=== PATIENT | male | born 1945 | race Caucasian/White ===

== ENCOUNTER → 2017-12-26 15:41 | Outpatient (CLI) | payer OTHER, SELFPAY ==
--- NOTE | 2017-12-26 15:46 | DI.RAD.S_ITS ---
PROCEDURE: XR KNEE LT 3V INDICATIONS: pain TECHNIQUE: 4 views of the knee were acquired. COMPARISON: None. FINDINGS: Bones: There is a nondisplaced fracture involving the fibular neck of uncertain chronicity. No suspicious bony lesions. Soft tissues: Small joint effusion. No suspicious soft tissue calcifications. IMPRESSION: Nondisplaced fracture of the fibular neck of uncertain chronicity. Dictated by: Dk Adams M.D. on 12/26/2017 at 16:49 Approved by: Dk Adams M.D. on 12/26/2017 at 16:51
--- NOTE | 2017-12-26 15:46 | DI.RAD.S_ITS ---
PROCEDURE: XR FOOT LT MIN 3V INDICATIONS: PAIN IN LEFT FOOT TECHNIQUE: 3 views of the foot were acquired. COMPARISON: None. FINDINGS: Bones: Two surgical screws are noted in the medial malleolus. There is old healed fracture/deformity involving the lateral malleolus. No suspicious bony lesions. Mild to moderate degenerative joint disease is noted in the first metatarsophalangeal joint and at multiple interphalangeal joints. Lucency in the second metatarsal head is probably caused by a bone cyst. Soft tissues: No tibiotalar joint effusion. Achilles tendon appears normal. IMPRESSION: 1. Old fractures involving the medial and lateral malleoli. 2. Degenerative joint disease. Dictated by: Dk Adams M.D. on 12/26/2017 at 16:42 Approved by: Dk Adams M.D. on 12/26/2017 at 16:49
== END ==
PROVIDERS: Visit Provider Physician Assistant
DX: S82.832A Other fracture of upper and lower end of left fibula, initial encounter for closed fracture (principal); M19.072 Primary osteoarthritis, left ankle and foot; M79.672 Pain in left foot; M25.562 Pain in left knee; Z87.81 Personal history of (healed) traumatic fracture
CPT/HCPCS: 73562; 73630

== ENCOUNTER → 2017-12-27 10:34 | Outpatient (CLI) | payer OTHER, SELFPAY ==
--- NOTE | 2017-12-27 13:11 | DI.US.S_ITS ---
PROCEDURE: US PERIPH VENOUS LOW EXTREM LT INDICATIONS: leg pain TECHNIQUE: Real-time imaging, as well as color and pulse Doppler interrogation, were performed of the lower extremity deep veins from the inguinal ligament to the popliteal fossa. COMPARISON: None. FINDINGS: The deep veins are normally compressible, and free of intraluminal thrombus. Color and pulse Doppler demonstrate normal phasic intraluminal flow. There is normal augmentation response to distal compression maneuver. IMPRESSION: No DVT found. Dictated by: Judson Early M.D. on 12/27/2017 at 13:37 Approved by: Judson Early M.D. on 12/27/2017 at 13:37
== END ==
PROVIDERS: Visit Provider Physician Assistant
DX: M79.605 Pain in left leg (principal)
CPT/HCPCS: 93971

== ENCOUNTER → 2018-03-31 14:54 | Outpatient (CLI) | payer OTHER, SELFPAY ==
--- NOTE | 2018-03-31 14:55 | DI.US.S_ITS ---
PROCEDURE: US SCROTUM INDICATIONS: testicular pain TECHNIQUE: Real-time scanning was performed of the scrotum and testicles, with image documentation. Color and pulse Doppler interrogation was performed of both testicles. COMPARISON: None. FINDINGS: Right: Testicle is normal in size at 2.4 x 3.9 x 5.7 cm, and homogenous in echotexture. Epididymis is normal in overall size and morphology. No hydrocele or varicoceles. Overlying scrotal skin is normal in thickness. There is a 5 mm epididymal cyst. Left: Absent Doppler: Color and pulse Doppler demonstrate normal and symmetric arterial flow in both testicles. IMPRESSION: Normal right testis, incidental note of a 5 mm right epididymal cyst. Dictated by: Judson Early M.D. on 03/31/2018 at 15:48 Approved by: Judson Early M.D. on 03/31/2018 at 15:49
== END ==
PROVIDERS: Visit Provider Physician Assistant
DX: N50.819 Testicular pain, unspecified (principal); N50.3 Cyst of epididymis
CPT/HCPCS: 76870

== ENCOUNTER → 2020-06-21 10:15 | Outpatient (CLI) | payer OTHER, SELFPAY ==
[2020-06-21 11:02] LABS: COVID19 -Nasal RAPID Negative (Negative)
== END ==
PROVIDERS: PCP Student in an Organized Health Care Education/Training Program; Visit Provider Physician Assistant
DX: Z20.822 Contact with and (suspected) exposure to COVID-19 (principal)
CPT/HCPCS: 87635; C9803

== ENCOUNTER → 2020-06-23 12:21 | Outpatient (CLI) | payer OTHER, SELFPAY ==
--- NOTE | 2020-06-23 12:22 | DI.NM.S_ITS ---
PROCEDURE: NM TEOFILO PERF SPECT REST & STR Rest and exercise myocardial perfusion SPECT with gated imaging and ejection fraction RADIOPHARMACEUTICAL: 27.2 mCi Tc-99m sestamibi IV at rest and 26.0 mCi Tc-99m sestamibi IV at peak exercise. A two day-protocol was performed. INDICATIONS: Other forms of angina pectoris TECHNIQUE: Radiopharmaceutical was injected at peak stress test, and also at rest. SPECT images were obtained. SPECT myocardial perfusion images were displayed in short axis, horizontal long axis, and vertical long axis views. Gated images were reviewed using [employer] software. COMPARISON: None. CARDIAC STRESS: A standard Christopher treadmill exercise tolerance test was performed by the patient under the supervision of an attending staff. The patient exercised for 4 minutes and 24 seconds; functional aerobic impairment (RON) is +30% on sedentary scale. Hemodynamic data: There is normal blood pressure and heart rate response to exercise stress. Patient achieved 78% of maximum predicted heart rate at peak exercise. Symptoms: Patient denied chest pain during exercise. EKG: No diagnostic EKG changes of ischemia; no ectopy. FINDINGS: Raw data: There is good myocardial labeling by radiotracer. No significant motion artifacts. Jarb-sj-cosng ratio is 0.29 (normal is less than 0.38 for sestamibi tracer, and less than 0.50 for thallium tracer). Left ventricle function: Gated images demonstrate normal left ventricle wall thickening. No segmental wall motion abnormality. No transient ischemic dilation; TID is 0.78 (normal less than 1.3). The left ventricle resting end-diastolic volume is 98 mL. Left ventricle stress ejection fraction is 76%; normal values are above 45%. Myocardial perfusion: There is normal distribution of activity in the left and right ventricular myocardium. No fixed or reversible perfusion defects. IMPRESSION: Low risk, submaximal treadmill nuclear stress test (submaximal study has reduced sensitivity to detect obstructive coronary artery disease). 1) No perfusion evidence of ischemia or infarction. 2) Normal left ventricular size, wall motion, and systolic function (EF post stress 76%). 3) No ECG evidence of ischemia. 4) No angina during the study. 5) Reduced exercise tolerance (7.0 METs, RON +30% on sedentary scale). Submaximal study as only 78% of maximal predicted heart rate achieved. Appropriate BP response to exercise. 6) No prior nuclear stress test available for comparison. Dictated by: Chance Weathers MD on 06/24/2020 at 16:44 Approved by: Chance Weathers MD on 06/24/2020 at 16:47
--- NOTE | 2020-06-23 14:14 | PM.TREADMILL ---
Cardiac Stress Test Report Referral & Results Date Patient Seen: 06/23/20 Requesting provider: Zay Gillespie Indication: Chest pain Rest ECG: Right bundle branch block, old Procedure Note: Today following both written and verbal informed consent the patient was exercised according to a standard Christopher protocol patient went for a total of 4 minutes 24 seconds achieving a maximum heart rate of 115 maximum systolic blood pressure of 148. This is approximately 7.0 METS. Exercise was terminated at this point because of patient was physically unable to keep up with the treadmill due to gait issues, no other cardiovascular symptoms. Patient was also given Cardiolite through a previously started Hep-Lock IV by the diagnostic imaging staff approximately 1 minute prior to the cessation of exercise. There are no ST-T segment changes identified No dysrhythmia Blunted heart rate and blood pressure response in part due to his inability, likely due to his underlying neurologic disorder, to keep up with the treadmill. Function aerobic impairment rates about 30% on the sedentary scale Impression: No evidence of ischemia based on usual ECG criteria, please see perfusion imaging report as well. If clinical concern warrants recommend repeating this test with pharmacological stress rather than exercise stress given patient's inability to reach target heart rate and blood pressures as above. Please note: Actual ECG tracings can be found in the PACS system.
== END ==
PROVIDERS: PCP Student in an Organized Health Care Education/Training Program; Referring Provider Student in an Organized Health Care Education/Training Program; Visit Provider Student in an Organized Health Care Education/Training Program
DX: I20.8 Other forms of angina pectoris (principal)
CPT/HCPCS: 78452; 93016; 93017; 93018; A9502

== ENCOUNTER → 2020-08-11 13:06 | Outpatient (CLI) | payer MEDICARE, SELFPAY ==
[2020-08-11] MEDS: COVID-19 VACC, Ad26(JANSSEN)/PF 0.5 ML IM (13:16)
== END ==
PROVIDERS: PCP Student in an Organized Health Care Education/Training Program; Visit Provider Internal Medicine
DX: Z23 Encounter for immunization (principal)
CPT/HCPCS: 0031A; 91303

== ENCOUNTER 2020-12-06 18:27 | Observation (INO) | payer OTHER, SELFPAY ==
[2020-12-06] VITALS (15 sets, daily range): BP systolic 121–179; BP diastolic 66–90; PULSE 55–85; RESP 14–25; TEMP 36.5–36.8; O2SAT 93–100; BMI 24.3
--- NOTE | 2020-12-06 18:33 | DI.CT.S_ITS ---
PROCEDURE: CT HEAD/BRAIN WO CON INDICATIONS: confusion and L sided weakness now better TECHNIQUE: Noncontrast 4.5 mm thick angled axial sections acquired from the foramen magnum to the vertex, with coronal and sagittal reformats. For radiation dose reduction, the following was used: automated exposure control, adjustment of mA and/or kV according to patient size. COMPARISON: None. FINDINGS: Image quality: Excellent. CSF spaces: Basal cisterns are patent. No extra-axial fluid collections. The ventricles are symmetric in size and shape. Brain: No intracranial bleeds or masses. There is cerebral volume loss for age, with resultant ventricular and sulcal prominence. There are periventricular and deep white matter chronic small vessel ischemic changes. There is intracranial internal carotid artery atherosclerosis. Skull and face: Calvarium and visualized facial bones appear intact, without suspicious lesions. Sinuses: Right maxillary sinus retention cyst. Visualized sinuses and mastoids are otherwise clear. IMPRESSION: 1. No acute intracranial abnormality. Dictated by: Trinh Zhou M.D. on 12/06/2020 at 20:44 Approved by: Trinh Zhou M.D. on 12/06/2020 at 20:45
--- NOTE | 2020-12-06 18:33 | PC.NURSE ---
Rapid triage done. MD informed of assessment. MD does not want a stroke alert called at this time
--- NOTE | 2020-12-06 18:34 | DI.CT.S_ITS ---
PROCEDURE: CT ANGIO HEAD AND NECK INDICATIONS: confusion L sided weakness now better TECHNIQUE: After the administration of intravenous contrast, 1 mm thick sections acquired from the aortic arch through the [place]. Post-contrast 4.5 mm thick sections then re-acquired from the foramen magnum to the vertex. 3-dimensional tbqfdhx-mjrnqxrtg-ottsgwlyjf (MIP) and/or volume rendering reformats were acquired of the central intracranial vasculature and neck separately. COMPARISON: None. FINDINGS: Image quality: Excellent. BRAIN: CSF spaces: Ventricles are normal in size and shape. Basal cisterns are patent. No extra-axial fluid collections. Brain: No midline shift. No intracranial bleeds or masses. Matos-white matter interface appears intact. Skull and face: Calvarium and facial bones appear intact, without suspicious lesions. Orbits appear normal. Sinuses: Sinuses and mastoids are clear. HEAD CT ANGIOGRAPHY: Anterior circulation: Intracranial internal carotid arteries are normal in size and flow. The flow within the paired anterior cerebral arteries is normal and symmetric. The flow within the middle cerebral arteries is normal and symmetric. The anterior communicating artery is seen. No aneurysms are seen. Posterior circulation: Visualized portions of the vertebral arteries demonstrate normal caliber, and join to form a normal appearing basilar artery. Flow within the posterior cerebral arteries is normal and symmetric. No aneurysms are seen. NECK CT ANGIOGRAPHY: Thoracic aortic arch is widely patent. Innominate, right subclavian and right vertebral artery is patent. Right common carotid artery demonstrates a roughly 50% stenosis distally at the bifurcation. Right external carotid artery demonstrates a moderate origin stenosis. Right internal carotid artery demonstrates 50% origin stenosis, and is otherwise patent. Right external carotid artery is patent. Left common carotid artery is patent. Mild, roughly 20% stenosis involves the proximal left internal carotid artery. Left vertebral artery arises directly from the thoracic aortic arch and demonstrates a mild origin stenosis, and is otherwise patent. Left subclavian artery is patent. Soft tissues: Visualized neck soft tissues demonstrate no suspicious abnormalities. Bones: No suspicious bony lesions. Visualized cervical spine appears normally aligned. IMPRESSION: 1. No acute process involving the arterial tree of the and neck. 2. Right greater than left internal carotid artery origin stenosis. 3. Right common carotid artery stenosis. Any quantitative measurements of stenosis were performed using NASCET criteria. Dictated by: Trinh Zhou M.D. on 12/06/2020 at 20:45 Approved by: Trinh Zhou M.D. on 12/06/2020 at 20:49
[2020-12-06] MEDS: SODIUM CHLORIDE 0.9% 1,000 ML 125 ML IV (19:07)
--- NOTE | 2020-12-06 19:16 | ED_ITS ---
HPI - Neuro Symptoms/Deficit General Chief Complaint: Neuro Symptoms/Deficit Stated Complaint: Poss Stroke or TIA, Confussed Time Seen by Provider: 12/06/20 18:32 Source: patient Mode of arrival: Ambulatory Limitations: no limitations History of Present Illness HPI Narrative: Patient is a 75-year-old male. Has a history of Parkinson's disease. He does live by himself. He states he occasionally has issues with b alance given his Parkinson's disease. He has been taking all his medications as directed. He states that earlier today he was taking a bath. Is he was getting out of the bathtub he had quite a bit of difficulty getting out of the tub. He states that there was no one else around him when this was going on. He did not describe any specific left or right-sided weakness it was just generally unable to get now. It then took him quite a bit of time to make it from the bathroom in to his living room. Again he is not exactly sure why this was going on. He states he was eventually able to call his neighbor who rest over to the house. She is at bedside and stated that when she arrived at the house he seemed very confused. She stated that he was having a difficult time using his phone. The patient states that it was his phone that was not working correctly. There was no reports of any specific facial droop. No reports of any specific left or right-sided weakness by the patient's neighbor. By the time he arrived here in the emergency department patient stated that he was feeling much better and was essentially back to normal. On Anticoagulants: No Related Data Home Medications Medication Instructions Recorded Confirmed carbidopa-levodopa PO 12/26/17 06/11/20 thyroid (pork) 15 mg tablet 15 mg PO DAILY 12/26/17 06/11/20 ([place] Thyroid) pramipexole 0.25 mg tablet 0.25 mg PO .COMPLEX 04/19/18 06/11/20 rasagiline 1 mg tablet (Azilect) 1 mg PO DAILY 04/19/18 12/07/20 clonazepam 1 mg tablet 1 mg PO BEDTIME PRN tab 06/04/20 06/11/20 donepezil 5 mg tablet 5 mg PO DAILY 06/04/20 12/07/20 Previous Rx's Medication Instructions Recorded famotidine 20 mg tablet 20 mg PO DAILY #90 tab 07/16/20 meloxicam 15 mg tablet 15 mg PO DAILY PRN #90 tab 07/21/20 Allergies Allergy/AdvReac Type Severity Reaction Status Date / Time Penicillins [PENICILLINS] Allergy Unknown Verified 12/06/20 18:45 Review of Systems Constitutional Constitutional: Denies fever(s) and Denies headache(s) Eyes Eyes: Denies change in vision ENT Ears, Nose, Mouth, and Throat: Denies headache(s) and Denies sore throat Cardiovascular Cardiovascular: Denies chest pain, Denies rapid heart rate and Denies dyspnea Respiratory Respiratory: Denies dyspnea Gastrointestinal Gastrointestinal: Denies abdominal pain Genitourinary Genitourinary: Reports system reviewed and no additional complaints, except as documented Musculoskeletal Musculoskeletal: Reports as per HPI Integumentary/Breasts Skin/Breast: Reports system reviewed and no additional complaints, except as documented Neurologic Neurologic: Reports as per HPI and Denies headache(s) Psychiatric Psychiatric: Reports system reviewed and no additional complaints, except as documented Endocrine Endocrine: Reports system reviewed and no additional complaints, except as documented Hematologic/Lymphatic On Anticoagulants: No Allergic/Immunologic Allergic/Immunologic: Reports system reviewed and no additional complaints, except as documented Patient History Medical History Benign prostatic hyperplasia (~2013) Chicken pox (~1949) Chronic back pain (~1999) Facial cellulitis (2008) Fractures (~2014) History of ankle fracture History of right bundle branch block (RBBB) Hypothyroidism (~1979) Kidney stones (~2011) Low testosterone (~2014) Memory impairment Migraines (~1963) Parkinson's disease (~2019) Sleep apnea (~2009) Thyroid disorder Tinnitus (~1970) Surgical History (Updated 12/07/20 @ 00:59 by RIYA Valencia) Anesthesia History of ankle surgery (~2004) History of hernia repair (1957) History of tonsillectomy and adenoidectomy Family History Father Congestive heart failure Grandmother No problems noted. Grandfather Cancer Mother Respiratory failure Stroke Grandmother Alzheimer's disease Grandfather Aneurysm Family/Other Diabetes mellitus Social History household members: none Smoking Status: Never smoker alcohol intake: current Smoking Status: Never smoker alcohol intake frequency: a few times a month Substance Use Type: does not use Exam Initial Vital Signs Initial Vital Signs: Vital Signs Temperature 98.3 F 12/06/20 18:33 Pulse Rate 77 12/06/20 18:33 Respiratory Rate 18 12/06/20 18:33 Blood Pressure 129/66 12/06/20 18:33 Pulse Oximetry 94 12/06/20 18:33 Const General: cooperative, healthy appearing, comfortable, well developed and well groomed HENCA Head: normal to inspection and normocephalic Eyes General: appearance normal, both eyes and all related structures Neck Neck: normal visual inspection Chest Chest: normal inspection of the chest Resp Effort & Inspection: normal respiratory effort Auscultation: clear to auscultation bilaterally Cardio Rate: regular rate Rhythm: regular rhythm GI Inspection: normal to inspection Palpation: soft and No tender Skin General: no rashes or lesions noted Neuro General: patient alert, patient awake, patient oriented x3 and moves all extremities Extrem General: normal to inspection and capillary refill normal Psych Appearance: grossly normal and well kempt Scores GCS [place] coma scale eye opening: Spontaneous [place] coma scale verbal response: Orientated [place] coma scale motor response: Obey commands [place] coma scale total score: 15 NIH Stroke Scale Level of Conciousness: Alert, keenly responsive Ask month/age: Answers both questions correctly. Open/close eyes, close hand: Performs both tasks correctly Best gaze horizontal: Normal Visual mtz: No visual loss Facial palsy: Normal symetrical movement Left arm drift: No drift for full 10 sec Right arm drift: No drift for full 10 sec Left leg drift: No drift for full 5 sec Right leg drift: No drift for full 5 sec Limb ataxia: Absent Sensory on face/arms/legs: Normal, no sensory loss Best language: No aphasia, normal Dysarthria: Normal Extinction or inattention: No abnormality Total NIH Stroke scale score: 0 Course Orders Ordered: ED Orders 12/06/20 18:56 COVID19 - ADMIT (EMS COORDINATOR swab/PCR) Stat Acetaminophen (Acetaminophen 325 Mg Tablet) 650 mg PO Q6HR PRN PRN Reason: Fever/Mild Pain (1-3) Aspirin (Aspirin Ec 81 Mg Tablet) 81 mg PO DAILY JOSELITO Atorvastatin Calcium (Atorvastatin 20 Mg Tablet) 80 mg PO BEDTIME JOSELITO Last Admin: 12/07/20 01:09 Dose: 80 mg Documented by: SHU Clopidogrel Bisulfate (Clopidogrel 75 Mg Tablet) 75 mg PO DAILY [facility] Donepezil HCl (Donepezil 5 Mg Tablet) 5 mg PO DAILY [facility] Enoxaparin Sodium (Enoxaparin 40 Mg/0.4 Ml Syringe) 40 mg SUBCUT DAILY [facility] Famotidine (Famotidine 20 Mg Tablet) 20 mg PO DAILY [facility] Sodium Chloride (Normal Saline 0.9%) 1,000 mls @ 125 mls/hr IV CONT [facility] Last Infusion: 12/06/20 23:28 Dose: 0 mls/hr Documented by: Admin: 12/06/20 19:07 Dose: 125 mls/hr Documented by: RYANNE Labetalol HCl (Labetalol 20 Mg/4 Ml Syringe) 10 mg IV Q4HR PRN PRN Reason: Heart Rate- High Naloxone HCl (Naloxone 0.4 Mg/Ml Vial) 0.2 mg IV Q2MIN PRN PRN Reason: Opiate Reversal Rasagiline [Azilect] (1 Mg Tablet) 1 mg PO DAILY [facility] Ondansetron HCl (Ondansetron 4 Mg/2 Ml Inj) 4 mg IV Q8HR PRN PRN Reason: Nausea And Vomiting Pramipexole Dihydrochloride (Pramipexole 0.25 Mg Tablet) 0.25 mg PO BEDTIME [facility] Last Admin: 12/07/20 01:09 Dose: 0.25 mg Documented by: SHU Pramipexole Dihydrochloride (Pramipexole 0.125 Mg Tablet) 0.125 mg PO 0900,1200 [facility] Thyroid (Thyroid, Pork 30 Mg Tablet) 15 mg PO DAILY [facility] Vital Signs Vital signs: Vital Signs - 8 hr 12/06/20 20:07 12/06/20 20:14 12/06/20 20:30 Pulse Rate 78 63 60 Respiratory Rate 19 19 Blood Pressure 137/75 Pulse Oximetry 95 93 94 12/06/20 21:00 12/06/20 22:00 12/06/20 22:47 Pulse Rate 65 85 58 L Respiratory Rate 20 18 Blood Pressure 155/80 H 121/84 Pulse Oximetry 94 100 97 12/06/20 22:55 12/06/20 23:00 Pulse Rate 55 L 62 Respiratory Rate 15 25 H Blood Pressure 179/81 H 177/87 H Pulse Oximetry 95 94 MDM - Neuro Symptoms/Deficit Medical Records Attestation: I reviewed the patient's medical records. Lab Data Attestation: I reviewed the patient's lab results. Result diagrams: 12/06/20 18:41 12/06/20 18:41 Labs: Lab Results 12/06/20 12/06/20 12/06/20 Range/Units 18:41 18:41 18:41 WBC 10.5 (4.5-11.0) X10^3/uL RBC 4.57 (4.5-5.9) X10^6/uL Hgb 14.3 (13.5-17.5) g/dL Hct 42.3 (41-53) % MCV 92.6 (80-100) fL MCH 31.3 (26-34) PG MCHC 33.8 (30-36) % RDW 15.0 H (11.6-14.8) % Plt Count 232 (150-400) X10^3/uL Neut % (Auto) 91.1 H (50-75) % Lymph % (Auto) 5.8 L (25-40) % [place] % (Auto) 2.4 L (3-14) % Eos % (Auto) 0.3 L (2-4) % Baso % (Auto) 0.4 (0-2) % Neut # (Auto) 9600 H (3998-0407) /uL Lymph # (Auto) 600 L (0655-2155) /uL [place] # (Auto) 300 (0-900) /uL Eos # (Auto) 0 (0-450) /uL Baso # (Auto) 0 (0-100) /uL Sodium 138 (137-145) mmol/L Potassium 4.2 (3.4-5.1) mmol/L Chloride 107 (98-107) mmol/L Carbon Dioxide 22 (22-32) mmol/L BUN 26 H (9-20) mg/dL Creatinine 0.95 (0.66-1.25) mg/dL Estimated GFR > 60.0 (>60) mL/min BUN/Creatinine Ratio 27.4 H (6-22) Glucose 192 H (80-110) mg/dL Hemoglobin A1c (4.0-6.0) % Calcium 9.6 (8.4-10.2) mg/dL Magnesium 2.2 (1.6-2.3) mg/dL Total Bilirubin 0.6 (0.2-1.3) mg/dL AST 33 (17-59) IU/L ALT 11 (<50) IU/L Alkaline Phosphatase 75 (38-126) U/L Total Creatine Kinase 118 (55-170) U/L CK-MB (CK-2) 2.38 H (<2.37) ng/mL CK-MB (CK-2) Rel Index 2.0 (1.5-5.0) % Troponin I < 0.012 (0.01-0.034) ng/mL Total Protein 7.3 (6.3-8.2) g/dL Albumin 4.4 (3.5-5.0) g/dL Globulin 2.9 (1.7-4.1) g/dL Albumin/Globulin Ratio 1.5 (1.0-2.8) Lipase 129 (23-300) U/L TSH 1.23 (0.47-4.68) uIU/mL Ethyl Alcohol < 10 ( - 10) mg/dL SARS-CoV-2 (PCR) (Negative) 12/06/20 12/06/20 12/06/20 Range/Units 18:41 18:41 18:56 WBC (4.5-11.0) X10^3/uL RBC (4.5-5.9) X10^6/uL Hgb (13.5-17.5) g/dL Hct (41-53) % MCV (80-100) fL MCH (26-34) PG MCHC (30-36) % RDW (11.6-14.8) % Plt Count (150-400) X10^3/uL Neut % (Auto) (50-75) % Lymph % (Auto) (25-40) % [place] % (Auto) (3-14) % Eos % (Auto) (2-4) % Baso % (Auto) (0-2) % Neut # (Auto) (3063-3880) /uL Lymph # (Auto) (4655-5183) /uL [place] # (Auto) (0-900) /uL Eos # (Auto) (0-450) /uL Baso # (Auto) (0-100) /uL Sodium (137-145) mmol/L Potassium (3.4-5.1) mmol/L Chloride (98-107) mmol/L Carbon Dioxide (22-32) mmol/L BUN (9-20) mg/dL Creatinine (0.66-1.25) mg/dL Estimated GFR (>60) mL/min BUN/Creatinine Ratio (6-22) Glucose (80-110) mg/dL Hemoglobin A1c 5.2 (4.0-6.0) % Calcium (8.4-10.2) mg/dL Magnesium Cancelled (1.6-2.3) mg/dL Total Bilirubin (0.2-1.3) mg/dL AST (17-59) IU/L ALT (<50) IU/L Alkaline Phosphatase (38-126) U/L Total Creatine Kinase (55-170) U/L CK-MB (CK-2) (<2.37) ng/mL CK-MB (CK-2) Rel Index (1.5-5.0) % Troponin I (0.01-0.034) ng/mL Total Protein (6.3-8.2) g/dL Albumin (3.5-5.0) g/dL Globulin (1.7-4.1) g/dL Albumin/Globulin Ratio (1.0-2.8) Lipase (23-300) U/L TSH (0.47-4.68) uIU/mL Ethyl Alcohol ( - 10) mg/dL SARS-CoV-2 (PCR) Negative (Negative) Urine Dip Bedside Urine Glucose Negative Bedside Urine Bilirubin - Negative Bedside Urine Ketone - Negative Urine Specific [place] 1.030 Bedside Urine Occult Blood - Negative Bedside Urine pH 6 Bedside Urine Protein - Negative Bedside Urine Urobilinogen - Negative Bedside Urine Nitrite - Negative Bedside Urine Leukocytes - Negative Esterase Imaging Data CT scan - head: Radiologist's Impression: [address] [id number] Scan ReportSigned Patient: Carlos Joseph [facility]#: [id number]: 7Acct:[id number]/Sex: 75 / MDate of Service: 12/06/20Loc: EDAccession Number: [id number] Procedure: CT head/brain wo con Ordering Provider: Samy Snyder D.O. PROCEDURE: CT HEAD/BRAIN WO CON INDICATIONS: confusion and L sided weakness now better TECHNIQUE: Noncontrast 4.5 mm thick angled axial sections acquired from the foramen magnum to the vertex, with coronal and sagittal reformats. For radiation dose reduction, the following was used: automated exposure control, adjustment of mA and/or kV according to patient size. COMPARISON: None. FINDINGS: Image quality: Excellent. CSF spaces: Basal cisterns are patent. No extra-axial fluid collections. The ventricles are symmetric in size and shape. Brain: No intracranial bleeds or masses. There is cerebral volume loss for age, with resultant ventricular and sulcal prominence. There are periventricular and deep white matter chronic small vessel ischemic changes. There is intracranial internal carotid artery atherosclerosis. Skull and face: Calvarium and visualized facial bones appear intact, without suspicious lesions. Sinuses: Right maxillary sinus retention cyst. Visualized sinuses and mastoids are otherwise clear. IMPRESSION: 1. No acute intracranial abnormality. Dictated by: Trinh Zhou M.D. on 12/06/2020 at 20:44 Approved by: Trinh Zhou M.D. on 12/06/2020 at 20:45 CTA - brain/neck: Radiologist's Impression: [address] Scan ReportSigned Patient: Carlos Joseph [facility]#: [id number]: 7Acct:[id number]/Sex: 75 / MDate of Service: 12/06/20Loc: EDAccession Number: [id number] Procedure: CT angio head and neck Ordering Provider: Samy Snyder D.O. PROCEDURE: CT ANGIO HEAD AND NECK INDICATIONS: confusion L sided weakness now better TECHNIQUE: After the administration of intravenous contrast, 1 mm thick sections acquired from the aortic arch through the [place] of [place]. Post-contrast 4.5 mm thick sections then re-acquired from the foramen magnum to the vertex. 3-dimensional tmhdqad-upkqzdkdy-ywwamixhwg (MIP) and/or volume rendering reformats were acquired of the central intracranial vasculature and neck separately. COMPARISON: None. FINDINGS: Image quality: Excellent. BRAIN: CSF spaces: Ventricles are normal in size and shape. Basal cisterns are patent. No extra-axial fluid collections. Brain: No midline shift. No intracranial bleeds or masses. Matos-white matter interface appears intact. Skull and face: Calvarium and facial bones appear intact, without suspicious lesions. Orbits appear normal. Sinuses: Sinuses and mastoids are clear. HEAD CT ANGIOGRAPHY: Anterior circulation: Intracranial internal carotid arteries are normal in size and flow. The flow within the paired anterior cerebral arteries is normal and symmetric. The flow within the middle cerebral arteries is normal and symmetric. The anterior communicating artery is seen. No aneurysms are seen. Posterior circulation: Visualized portions of the vertebral arteries demonstrate normal caliber, and join to form a normal appearing basilar artery. Flow within the posterior cerebral arteries is normal and symmetric. No aneurysms are seen. NECK CT ANGIOGRAPHY: Thoracic aortic arch is widely patent. Innominate, right subclavian and right vertebral artery is patent. Right common carotid artery demonstrates a roughly 50% stenosis distally at the bifurcation. Right external carotid artery demonstrates a moderate origin stenosis. Right internal carotid artery demonstrates 50% origin stenosis, and is otherwise patent. Right external carotid artery is patent. Left common carotid artery is patent. Mild, roughly 20% stenosis involves the proximal left internal carotid artery. Left vertebral artery arises directly from the thoracic aortic arch and demonstrates a mild origin stenosis, and is otherwise patent. Left subclavian artery is paten t. Soft tissues: Visualized neck soft tissues demonstrate no suspicious abnormalities. Bones: No suspicious bony lesions. Visualized cervical spine appears normally aligned. IMPRESSION: 1. No acute process involving the arterial tree of the and neck. 2. Right greater than left internal carotid artery origin stenosis. 3. Right common carotid artery stenosis. Any quantitative measurements of stenosis were performed using NASCET criteria. Dictated by: Trinh Zhou M.D. on 12/06/2020 at 20:45 Approved by: Trinh Zhou M.D. on 12/06/2020 at 20:49 ECG Data Attestation: I personally reviewed and interpreted this ECG as follows: Interpretation: Sinus rhythm Ventricular rate is 74 Normal axis Right bundle branch block QRS 132 milliseconds QTC [address] T wave changes MDM Narrative Medical decision making narrative: Patient arrived greater than 4-1/2 hours after the onset of his symptoms and also by the time he arrived to the emergency department his symptoms had essentially resolved. He is back to his baseline neurologic status per his neighbor who is at bedside and per the patient himself. Had a NIH score of 0. Head CT and CT of the head neck relatively unremarkable. EKG is unremarkable. Labs unremarkable. Given his presentation it could be related to his Parkinson's disease. Does not sound like a seizure. We did discuss potential other neurologic issues to include stroke/TIA. Had a long discussion with the patient and had a discussion about being admitted to [facility] verses continue his workup as an outpatient. We did discuss the risks and benefits of each of these options and he opted to be admitted to the hospital for further evaluation. Discussed the case with LAUREN Villela the [facility] provider who will admit for further evaluation and treatment Stroke Core Measures Exclusion Criteria TPA in CVA: Symptom Onset >3 or 4.5 Hours Discharge Plan Departure Patient Disposition: Admitted as Observation Clinical Impression: Brain TIA Admit Date/Time: 12/06/20 23:00 Admit Provider: Margot Villela
[2020-12-06 19:21] LABS: Add Manual Diff / Slide Review NO; Basophils Absolute Auto 0 /uL (0-100); Basophils Percent Auto 0.4 % (0-2); Eosinophils Absolute Auto 0 /uL (0-450); Eosinophils Percent Auto 0.3 % (2-4); Hematocrit 42.3 % (41-53); Hemoglobin 14.3 g/dL (13.5-17.5); Lymphocytes Absolute Auto 600 /uL (1100-4500); Lymphocytes Percent Auto 5.8 % (25-40); Mean Corpuscular HGB Conc 33.8 % (30-36); Mean Corpuscular Hemoglobin 31.3 PG (26-34); Mean Corpuscular Volume 92.6 fL (80-100); Monocytes Absolute Auto 300 /uL (0-900); Monocytes Percent Auto 2.4 % (3-14); Neutrophils Absolute Auto 9600 /uL (1500-7000); Neutrophils Percent Auto 91.1 % (50-75); Platelet Count 232 X10^3/uL (150-400); Red Blood Cell Count 4.57 X10^6/uL (4.5-5.9); White Blood Cell Count 10.5 X10^3/uL (4.5-11.0)
[2020-12-06 19:36] LABS: Alanine Aminotransferase 11 IU/L (<50); Albumin 4.4 g/dL (3.5-5.0); Albumin Globulin Ratio 1.5 (1.0-2.8); Alkaline Phosphatase 75 U/L (38-126); Aspartate Aminotransferase 33 IU/L (17-59); BUN Creatinine Ratio 27.4 (6-22); Bilirubin Total 0.6 mg/dL (0.2-1.3); Blood Urea Nitrogen 26 mg/dL (9-20); Calcium 9.6 mg/dL (8.4-10.2); Carbon Dioxide 22 mmol/L (22-32); Chloride 107 mmol/L (98-107); Creatine Kinase 118 U/L (55-170); Estimated Glomerular Filt Rate > 60.0 mL/min (>60); Ethanol (ETOH) < 10 mg/dL; Globulin 2.9 g/dL (1.7-4.1); Glucose 192 mg/dL (80-110); HEMOLYSIS < 15 (0-50); Lipase 129 U/L (23-300); Magnesium 2.2 mg/dL (1.6-2.3); Potassium 4.2 mmol/L (3.4-5.1); Sodium 138 mmol/L (137-145); Total Protein 7.3 g/dL (6.3-8.2)
[2020-12-06 19:46] LABS: Troponin I < 0.012 ng/mL (0.01-0.034)
[2020-12-06 19:50] LABS: Creatine Kinase MB 2.38 ng/mL (<2.37)
[2020-12-06 20:05] LABS: Thyroid Stimulating Hormone 1.23 uIU/mL (0.47-4.68)
[2020-12-06 20:22] LABS: COVID19 - ADMIT (NP swab/PCR) Negative (Negative)
--- NOTE | 2020-12-07 | DI.ECHO.S_ITS ---
[place] [facility]---------+ [facility] +---------+ : : [address] [place] : : : : [id number] : : : : Phone: [phone]+ Echocardiogram Report + + :Name: HOSEA MENDEZ Study Date: 12/07/2020 Height: 70 in : :[facility] ReadingLocation: Weight: 170 lb : : Gender: Male BSA: 1.9 m2 : :: 1945 Age: 75 yrs BP: 169/90 mmHg: :Reason For Study: RBBB, TIA : :Ordering Physician: DINORA BOJORQUEZ : :[employer]INE [employer] Performed By: Arabella Parsons : :Referring: DINORA BOJORQUEZ : + + Interpretation Summary The left ventricle is normal in size and wall thickness. Left ventricular systolic function appears normal without focal wall motion abnormalities. The ejection fraction is estimated to be 60-65%. Diastolic parameters suggest probable normal left ventricular diastolic function and normal filling pressures. The right ventricle is at the upper limits of normal in size. The right ventricular systolic function is normal. The right ventricular systolic pressure is estimated to be at least 30 mmHg based on an estimated right atrial pressure of 3 mm Hg. The left atrial size is normal. Right atrial size is normal. Injection of contrast documented no interatrial shunt. There is no significant valvular heart disease. The ascending aorta is at the upper limits of normal in size. Procedure: A two-dimensional transthoracic echocardiogram with color flow and Doppler was performed. The study quality was technically adequate. There is no prior echocardiogram noted for this patient. A saline contrast injection was performed to assess for cardiac shunting. The patient was in sinus rhythm with heart rates between 63-70 bpm during the exam. Left Ventricle: The left ventricle is normal in size and wall thickness. Left ventricular systolic function appears normal without focal wall motion abnormalities. The ejection fraction is estimated to be 60-65%. Diastolic parameters suggest probable normal left ventricular diastolic function and normal filling pressures. Right Ventricle: The right ventricle is at the upper limits of normal in size. The right ventricular systolic function is normal. Atria: The left atrial size is normal. Right atrial size is normal. Injection of contrast documented no interatrial shunt. Mitral Valve: The mitral valve is normal in structure and function. There is trace mitral regurgitation. Aortic Valve: The aortic valve is trileaflet. The aortic valve opens well. There is no aortic valve stenosis. No aortic regurgitation is present. Tricuspid Valve: The tricuspid valve is normal in structure and function. The right ventricular systolic pressure is estimated to be at least 30 mmHg based on an estimated right atrial pressure of 3 mm Hg. There is mild tricuspid regurgitation. Pulmonic Valve: The pulmonic valve leaflets are thin and pliable; valve motion is normal. There is trace pulmonic regurgitation. There is no significant valvular heart disease. Great Vessels: The aortic root is normal size. The ascending aorta is at the upper limits of normal in size. The IVC is of normal diameter and collapses greater than 50% with a sniff. This suggests a low right atrial pressure of 3 mm Hg. Pericardium/ Pleura There is no pericardial effusion. There is no pleural effusion. MMode/2D Measurements & Calculations LVIDd: 5.7 cm LVOT diam: 2.1 cm LVIDs: 3.8 cm Ao root diam: 3.2 cm FS: 33.3 % asc Aorta Diam: 3.5 cm IVSd: 0.77 cm Ao Arch Diam (Prox Trans): 3.2 cm LVPWd: 1.0 cm LV tsai. diameter/BSA (cm/m^2): 2.9 LV sys. diameter/BSA (cm/m^2): 1.9 LA A2 area: 20.2 cm2 RA long axis: 5.5 cm LA A4 area: 19.0 cm2 RA area: 15.0 cm2 LA length (vol): 5.4 cm RA vol: 34.8 ml LA vol: 60.1 ml RA : 17.9 ml/m2 LA vol index: 30.9 ml/m2 IVC diam: 1.3 cm RVD1 (basal): 4.0 cm TAPSE: 2.1 cm Doppler Measurements & Calculations Ao V2 max: 187.9 cm/sec LVOT Max Rafael: 115.7 cm/sec Ao V2 mean: 134.1 cm/sec LV V1 max P.4 mmHg Ao max P.1 mmHg LV V1 VTI: 26.1 cm Ao mean P.0 mmHg MARCELO(I,D): 2.2 cm2 Ao V2 VTI: 42.9 cm MARCELO(V,D): 2.2 cm2 sev ratio: 0.61 MARCELO indexed to BSA (cm^2/m^2): 1.1 MV E max rafael: 69.3 cm/sec TR max rafael: 258.7 cm/sec MV A max rafael: 69.3 cm/sec TR max P.8 mmHg MV E/A: 1.0 PA V2 max: 105.0 cm/sec Med Peak E' Rafael: 6.2 cm/sec PA V2 mean: 64.5 cm/sec E/E' med: 11.2 PA mean P.0 mmHg Lat Peak E' Rafael: 10.0 cm/sec PA pr(Accel): 22.5 mmHg E/E' lat: 7.0 E/e' average: 9.1 MV dec time: 0.25 sec SV(LVOT): 92.5 ml Reading Physician:01:24 PM
[2020-12-07 00:39] LABS: Creatine Kinase 99 U/L (55-170); Magnesium 2.3 mg/dL (1.6-2.3)
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
[2020-12-07 00:52] LABS: Troponin I < 0.012 ng/mL (0.01-0.034)
[2020-12-07 00:56] LABS: Hemoglobin A1C% w Est Avg Glu 5.2 % (4.0-6.0)
[2020-12-07] MEDS: ATORVASTATIN 20 MG TABLET 80 MG PO (01:09)
[2020-12-07] MEDS: PRAMIPEXOLE 0.25 MG TABLET PO (01:09)
[2020-12-07 04:00] VITALS: BP 149/100; PULSE 61; RESP 18; TEMP 36.1; O2SAT 95
[2020-12-07 05:36] VITALS: PULSE 52; RESP 12; O2SAT 93
[2020-12-07 06:12] LABS: Add Manual Diff / Slide Review NO; Basophils Absolute Auto 0 /uL (0-100); Basophils Percent Auto 0.5 % (0-2); Eosinophils Absolute Auto 200 /uL (0-450); Eosinophils Percent Auto 2.1 % (2-4); Hematocrit 38.7 % (41-53); Lymphocytes Absolute Auto 1200 /uL (1100-4500); Lymphocytes Percent Auto 15.3 % (25-40); Mean Corpuscular HGB Conc 33.6 % (30-36); Mean Corpuscular Hemoglobin 31.1 PG (26-34); Mean Corpuscular Volume 92.5 fL (80-100); Monocytes Absolute Auto 700 /uL (0-900); Monocytes Percent Auto 8.8 % (3-14); Neutrophils Absolute Auto 5600 /uL (1500-7000); Neutrophils Percent Auto 73.3 % (50-75); Platelet Count 194 X10^3/uL (150-400); Red Blood Cell Count 4.18 X10^6/uL (4.5-5.9); Red Cell Distribution Width 14.8 % (11.6-14.8); White Blood Cell Count 7.7 X10^3/uL (4.5-11.0)
[2020-12-07 06:30] LABS: Blood Urea Nitrogen 24 mg/dL (9-20); Carbon Dioxide 26 mmol/L (22-32); Chloride 110 mmol/L (98-107); Estimated Glomerular Filt Rate > 60.0 mL/min (>60); Glucose 97 mg/dL (80-110); HEMOLYSIS < 15 (0-50); Magnesium 2.2 mg/dL (1.6-2.3); Potassium 3.7 mmol/L (3.4-5.1); Sodium 141 mmol/L (137-145)
[2020-12-07 06:35] LABS: Cholesterol 139 mg/dL (140-199); HDL Cholesterol 38 mg/dL (40-60); LDL Cholesterol Calculated 80 mg/dL (<100); Triglycerides 106 mg/dL (35-150)
[2020-12-07 06:41] LABS: Troponin I < 0.012 ng/mL (0.01-0.034)
[2020-12-07 07:00] VITALS: BP 159/90; PULSE 64; RESP 16; TEMP 36.9; O2SAT 94
--- NOTE | 2020-12-07 08:00 | DI.MRI.S_ITS ---
PROCEDURE: MR STROKE Pre- and post-contrast brain MRI, non-contrast brain MR angiogram, pre- and postcontrast neck MR angiogram INDICATIONS: ?TIA TECHNIQUE: Brain: Noncontrast axial T1 spin echo, axial T2 fast spin echo, sagittal and axial FLAIR, coronal T2 fast spin echo, axial gradient echo, axial diffusion and ADC through the brain. After the administration of contrast, axial 3D VIBE of the cranial vasculature and brain. Brain MRA: Non-contrast 3-D time of flight MR angiogram, with multiple mlwdsaq-ysxiyxlid-mbforvlbxz (MIP) reformats performed. Neck MRA: Axial and sagittal TruFISP through the neck. Coronal dynamic MR angiogram during administration of contrast in the arterial and venous phases, with 3-dimenstional mcmohxc-litchctln-orhfuutsax (MIP) reformats constructed from subtraction images. COMPARISON: [facility], CT, CT ANGIO HEAD AND NECK, 12/06/2020, 19:53. [facility], CT, CT HEAD/BRAIN WO CON, 12/06/2020, 19:53. FINDINGS: Image quality: Excellent. BRAIN: CSF spaces: Ventricles are normal in size and shape. Basal cisterns are patent. No extra-axial fluid collections. Brain: No intracranial bleeds or mass effects. There is mild cerebral volume loss. Matos-white matter interface is normal. Diffusion weighted images show no acute ischemic insults. A small area of mild T2 hyperintensity in cleo, which may be secondary to chronic small vessel ischemia or demyelinating process. Normal intravascular flow voids are present. No abnormal intracranial enhancement. Skull and face: Calvarial marrow signal is normal. Orbits appear normal. Sinuses: There is an air-fluid level in the right maxillary sinus. The mastoids are clear. BRAIN MR ANGIOGRAM: Anterior circulation: Intracranial internal carotid arteries are normal in size and enhancement. The flow within the paired anterior cerebral arteries is normal and symmetric. The flow within the middle cerebral arteries is normal and symmetric. The anterior communicating artery is seen. No stenoses, occlusions, or aneurysms. Posterior circulation: The visualized portions of the vertebral arteries demonstrate normal caliber, and join to form a normal appearing basilar artery. The flow within the posterior cerebral arteries is normal and symmetric. No stenoses, occlusions, or aneurysms. NECK MR ANGIOGRAM: Carotids: Great vessels demonstrate a conventional anatomy as they arise from the aortic arch. The origins of the common carotid arteries appear patent. The calibers and courses of both common carotid arteries are normal. There is moderate stenosis (50-60%) at the right common carotid artery near carotid bifurcation. The left bifurcation region appears normal. The internal carotid arteries demonstrate normal course and caliber. Posterior circulation: The origins of the vertebral arteries appear patent. More superior portions of both vertebral arteries demonstrate normal course and caliber, and join to form a normal appearing basilar artery. Miscellaneous: Subclavian arteries appear patent. Pre-contrast images through the neck show no soft tissue abnormalities. IMPRESSION: BRAIN MRI: 1. No acute intracranial abnormalities. 2. Mild cerebral volume loss. 3. A small area of mild T2 hyperintensity in cleo, which may be secondary to chronic small vessel ischemia or demyelinating process. 4. An air-fluid level in the right maxillary sinus. BRAIN MR ANGIOGRAM: No hemodynamic significant stenosis in anterior or posterior circulations. NECK MR ANGIOGRAM: 1. Approximately 50-60% stenosis of the distal right common carotid artery near the bifurcation. 2. No hemodynamic significant stenosis in vertebral arteries bilaterally. Dictated by: Dk Adams M.D. on 12/07/2020 at 10:45 Approved by: Dk Adams M.D. on 12/07/2020 at 10:56
--- NOTE | 2020-12-07 10:50 | PT.IIE ---
Surgical History (Last Updated 12/07/20 @ 00:59 by RIYA Valencia) Anesthesia Medical History (Last Reviewed 12/07/20 @ 03:56 by Samy Snyder DO) Benign prostatic hyperplasia (~2013) Chicken pox (~1950) Chronic back pain (~1999) Facial cellulitis (2009) Fractures (~2015) History of ankle fracture History of right bundle branch block (RBBB) Hypothyroidism (~1979) Kidney stones (~2011) Low testosterone (~2014) Memory impairment Migraines (~1963) Parkinson's disease (~2018) Sleep apnea (~2009) Thyroid disorder Tinnitus (~1969) Physical Therapy Inpatient Evaluation/Re-Eval M1 PT/OT-IP Prior Functional Status Start: 12/07/20 11:00 Freq: NEEDED Status: Active Protocol: Document 12/07/20 10:50 DLM (Rec: 12/07/20 11:19 DLM [id number]) Medical Review Prior Functional Status Medical History Reviewed Yes Diet/Fluid Consistency Regular Communication WNL, chart shows hx decreased memory Mobility and Gait Independent without device, ambulates on property, 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 basement in house, main living on first floor, 3 steps to enter, hold wood pile Employment Status Retired M2 PT-IP Current Condition Start: 12/07/20 11:00 Freq: NEEDED Status: Active Protocol: Document 12/07/20 10:50 DLM (Rec: 12/07/20 11:19 DLM [id number]) Physical Therapy Current Condition Current Condition Evaluation Date 12/07/20 Treatment Diagnosis r/o CVA, froze in bathtub at home Onset Date 12/06/20 M3 PT-IP Subjective Start: 12/07/20 11:00 Freq: NEEDED Status: Active Protocol: Document 12/07/20 10:50 DLM (Rec: 12/07/20 11:19 DLM [id number]) Subjective Physical Therapy Visit Type Type Initial Evaluation Visit Start Time 10:20 Visit Stop Time 10:50 Total Visit Minutes 30 Number of SENIOR ANALYTIC CONSULTANT Visits 0 Physical Therapy Visit Comments Patient Comments He describes freezing in his bathtub after taking a bath, could not get out. After he got out he was moving much better. He reports he is feeling better than normal today. Patient Goals Return home Therapy Pain Assessment Pain When Pain Assessed At Rest Pain Present Pain Present Denied Pain M4 PT-IP Mobility and Gait Start: 12/07/20 11:00 Freq: NEEDED Status: Active Protocol: Document 12/07/20 10:50 DLM (Rec: 12/07/20 11:19 DL [id number]) PT-Bed Mobility Assessment Rolling Type of Rolling Roll to Left Level of Assist Independent Supine to Sit Supine to Sit Independent Sit to Supine Sit to Supine Independent Scooting Scooting to Edge of Bed Independent PT-Transfer Assessment Sit to and From Stand Sit to and from Stand Independent Equipment Transfer Assistive Device None,Gait Belt Transfers Transfer Destination Bed,Chair Transfer Technique Stand Step Pivot Transfer Ability Level of Assist Independent,Use of Upper Extremities Gait Assessment Gait Gait Assistance Required: Independent Distance (Feet) 250 Assistive Devices Assistive Device None,Gait Belt Gait Deviations General Gait Pattern Within Normal Limits Comments Gait Comments he reports a hx of freezing during gait and difficulty with transitions, none of these issues were observed today, he can verbalize how to manage freezing during gait Stair Climbing Assessment Evaluation Level of Assist On Stairs Independent Devices Stair Climbing Assistive Devices Left Railing,Right Railing Technique/Endurance Stair Climbing Direction Ascend and Descend Stair Climbing Technique Step Over Step Number of Steps Climbed 3 Query Text: Stair Climbing Set # Repetitions (reps) 1 PT-Balance Assessment Sitting Balance and Reactions Static Sitting Balance Ability Normal Dynamic Sitting Balance Ability Normal Standing Balance and Reactions Static Standing Balance Ability Good Dynamic Standing Balance Ability Good Balance Tests Romberg mild increased sway with EC but no loss of balance M5 PT-IP Objective Assessments Start: 12/07/20 11:00 Freq: NEEDED Status: Active Protocol: Document 12/07/20 10:50 DLM (Rec: 12/07/20 11:19 DL [id number]) Orientation Orientation/Cognition Level of Alertness Alert Orientation Name,Age,Date,Place,Situation Language Function Ability No Deficits Noted Safety Awareness Decreased Safety Awareness Memory Description Short Term Impaired Comments cooperative, able to follow instructions, has difficulty describing how he manage his medications Gross Range of Motion Upper Extremity ROM Assessment Within Functional Limits Lower Extremity ROM Assessment Within Functional Limits Strength Upper Extremity Strength Assessment Within Functional Limits Lower Extremity Strength Assessment Within Functional Limits Coordination Assessment Assessment Finger to Nose Test Minimal Impairment Coordination Comments WFL today, hx of tremors but none at this time Sensation Assessment Sensation Gross Sensation WNL Muscle Tone Comments Muscle Tone Comments mild rigidity today M6 PT-IP Treatment Start: 12/07/20 11:00 Freq: NEEDED Status: Active Protocol: Document 12/07/20 10:50 DLM (Rec: 12/07/20 11:19 DLM [id number]) Physical Therapy Treatment Education Education Provided Safety M7 PT-IP Assessment and Plan Start: 12/07/20 11:00 Freq: NEEDED Status: Active Protocol: Document 12/07/20 10:50 DLM (Rec: 12/07/20 11:19 DLM [id number]) PT Summary Assessment and Plan Potential Rehabilitation Potential Good Status of Condition at Evaluation Evolving Summary Assessment Summary Carlos shows good improvement today. His strength and balance are good. He demonstrates independent gait and mobility without a device. He is eager to return home. He is a good candidate for an out-pt Parkinsons program to continue to assist with management of his symptoms. Recommend nursing supervision during this admission to determine if he is consistent in his improvement or if he varies throughout the day. Concerned that he may be having difficulty managing his medication schedule at home with his difficulty talking about his home medication routine. Frequency of Treatment Frequency Of Treatment Discharge Recommendations To Nursing Amount of Assist Needed Standby Assistance Discharge Recommendations PT Discharge Recommendations Home,Outpatient PT Transportation Needs at Discharge Private Vehicle
[2020-12-07] MEDS: ASPIRIN EC 81 MG TABLET PO (10:56)
[2020-12-07] MEDS: DONEPEZIL 5 MG TABLET PO (10:56)
[2020-12-07] MEDS: FAMOTIDINE 20 MG TABLET PO (10:57)
[2020-12-07] MEDS: ENOXAPARIN 40 MG/0.4 ML SYRINGE SUBCUT (10:57)
[2020-12-07] MEDS: CLOPIDOGREL 75 MG TABLET PO (10:57)
[2020-12-07] MEDS: THYROID, PORK 30 MG TABLET 15 MG PO (10:58)
[2020-12-07] MEDS: PRAMIPEXOLE 0.125 MG TABLET PO ×2 (10:59→13:46)
--- NOTE | 2020-12-07 11:34 | PC.NURSE ---
Addendum entered by Paulina Quispe R.N. 12/07/20 13:54: Patient is sitting up in his recliner with his clothes on. Waiting to talk to the Doctor about his MRI and Echo report. Denies pain, has taken all of his medication s difficulty, no swallowing issues. Original Note: Assess- Patient is alert and oriented x3, but does have periods of confusion. He has dx of Parkinsons. Worked with physical therapy and therapist states that he did well ambulating. Patient states that he has had some floaters to left eye with vision. His smile is symmetrical, and he does not have any drift with lifting his arms and legs. Down for MRI and has had his echo. Med list to be updated and patient is resting.
[2020-12-07 12:35] VITALS: BP 134/85; PULSE 74; RESP 18; TEMP 36.7; O2SAT 94
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
--- NOTE | 2020-12-07 15:31 | CM.DPC ---
Addendum entered by Karoline Viramontes 12/07/20 15:38: Patient with h/o Parkinson's disease being managed by neurologist in [place]. KJS Original Note: DCP/Assessment: Reviewed chart. Patient is a 75yr old male admitted to [facility] with possible CVA/TIA. PCP is Dr. Gillespie. Primary payor is 1)[employer] ADV. Attempted to meet with patient this afternoon but he had already discharged. Received notification in AM rounds that patient had no identified d/c planning needs. RN/Paulina confirmed that patient had no needs. P: Home today. 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 No History Provided By Medical Record Prior Living Arrangements House Household Members none Independent with ADL's Yes Is patient alert and oriented? Yes Caregiver for Another No Barriers to Discharge No Discharge Plan Home Transportation Arrangement Family/Friend to provide transport. Referrals Initiated None needed Review Status In Process Next Review Type Continued Stay Review
== END 2020-12-07 15:10 | disposition home or self-care (01) ==
LOC: ED 18:35 → AC 23:01
PROVIDERS: Admitting Provider Nurse Practitioner Family; Emergency Provider Emergency Medicine; PCP Student in an Organized Health Care Education/Training Program; Referring Provider Emergency Medicine; Visit Provider Nurse Practitioner Family
DX: G20 Parkinson's disease (principal); R41.0 Disorientation, unspecified; R73.9 Hyperglycemia, unspecified; E03.9 Hypothyroidism, unspecified; I10 Essential (primary) hypertension; I25.10 Atherosclerotic heart disease of native coronary artery without angina pectoris; G47.30 Sleep apnea, unspecified; Z20.822 Contact with and (suspected) exposure to COVID-19
CPT/HCPCS: 36415; 70450; 70496; 70498; 70548; 70553; 80048; 80053; 80061; 80320; 81003; 82550; 82553; 83036; 83690; 83735; 84443; 84484; 85025; 87635; 93005; 93010; 93306; 96360; 96361; 96372; 97162; 99285; C9803; G0378; A9270; A9579; J1650; Q9967

== ENCOUNTER → 2021-09-11 12:54 | Outpatient (CLI) | payer OTHER, SELFPAY ==
[2020-12-06 23:46] VITALS: BMI 24.3
[2021-09-15 09:51] LABS: Fecal Immunochemical Test Negative (Negative)
== END ==
PROVIDERS: PCP Student in an Organized Health Care Education/Training Program; Referring Provider Student in an Organized Health Care Education/Training Program; Visit Provider Student in an Organized Health Care Education/Training Program
DX: Z12.11 Encounter for screening for malignant neoplasm of colon (principal)
CPT/HCPCS: 82274

== ENCOUNTER 2022-02-04 15:18 | Emergency (ER) | payer OTHER, SELFPAY ==
[2020-12-06 23:46] VITALS: BMI 24.3
[2022-02-04] VITALS (26 sets, daily range): BP systolic 133–174; BP diastolic 69–99; PULSE 61–74; RESP 12–34; TEMP 36.4–36.9; O2SAT 91–99; BMI 22.2
--- NOTE | 2022-02-04 15:18 | DI.CT.S_ITS ---
PROCEDURE: CT CERVICAL SPINE WO CON INDICATIONS: Trauma TECHNIQUE: Noncontrast 3 mm thick sections acquired from the skull base to the T4 level. Sagittal and coronal reformats were then constructed. For radiation dose reduction, the following was used: automated exposure control, adjustment of mA and/or kV according to patient size. COMPARISON: None. FINDINGS: Image quality: Excellent. Bones: No fractures or dislocations. Loss of disc height, degenerative endplate changes and bilateral facet hypertrophic changes are noted throughout cervical spine more prominent at C4-5 through C6-7 levels causing [id number] central canal stenosis and bilateral neural foraminal narrowing. Visualized superior ribs are intact. Soft tissues: Prevertebral soft tissues are normal in thickness. Pockets of air are seen within right paraspinous muscle of lower neck and visualized portion of upper back. No paravertebral hematomas. No apical pneumothoraces. IMPRESSION: 1. No acute cervical spine fracture or dislocation. 2. Degenerative disc disease throughout cervical spine as above. 3. Pockets of air within right paraspinous muscle and deep soft tissue of upper back and lower neck and is of indeterminate origin. Please correlate with CT of chest, abdomen and pelvis findings. Dictated by: Eliel Park M.D. on 02/04/2022 at 15:41 Approved by: Eliel Park M.D. on 02/04/2022 at 15:44
--- NOTE | 2022-02-04 15:18 | DI.CT.S_ITS ---
PROCEDURE: CT HEAD/BRAIN WO CON INDICATIONS: Trauma TECHNIQUE: Noncontrast 4.5 mm thick angled axial sections acquired from the foramen magnum to the vertex, with coronal and sagittal reformats. For radiation dose reduction, the following was used: automated exposure control, adjustment of mA and/or kV according to patient size. COMPARISON: [facility], CT, CT HEAD/BRAIN WO CON, 12/06/2020, 19:53. FINDINGS: Image quality: Excellent. CSF spaces: Basal cisterns are patent. No extra-axial fluid collections. The ventricles are symmetric in size and shape. Brain: No intracranial bleeds or masses. There is cerebral volume loss for age, with resultant ventricular and sulcal prominence. There are periventricular and deep white matter chronic small vessel ischemic changes. There is intracranial internal carotid artery atherosclerosis. Skull and face: Calvarium and visualized facial bones appear intact, without suspicious lesions. Sinuses: Vis retention cyst in right maxillary sinus is seen. Rest of the paranasal sinuses and mastoid air cells are well aerated. IMPRESSION: No CT evidence of acute intracranial pathology. No significant changes from previous study. Dictated by: Eliel Park M.D. on 02/04/2022 at 15:40 Approved by: Eliel Park M.D. on 02/04/2022 at 15:41
--- NOTE | 2022-02-04 15:18 | DI.CT.S_ITS ---
PROCEDURE: CT CHEST ABD PEL W CON INDICATIONS: Trauma TECHNIQUE: After the administration of intravenous contrast, 5 mm thick sections acquired from the lung apices to the symphysis. 2.5 mm thick coronal and sagittal reformats were acquired. Additional 7 mm thick coronal maximum intensity projection (MIP) reformats acquired through the lungs. Optional 10-minute delayed imaging may be performed from the kidneys to the bladder. For radiation dose reduction, the following was used: automated exposure control, adjustment of mA and/or kV according to patient size. COMPARISON: [facility], CT, CT CERVICAL SPINE WO CON, 02/04/2022, 15:21. [facility], CT, CHEST/ABD/PEL WITH CONTRAST, 02/04/2017, 18:03. FINDINGS: Image quality: Excellent. CHEST: Lungs: Small right pneumothorax. Small right pleural effusion. Moderate patchy opacity within the right lung base. Central and peripheral airways appear patent and normal in caliber. Mediastinum: No mediastinal hematomas. Heart size is normal. Moderate calcification of the coronary vasculature. No pericardial effusion. Thoracic aorta and pulmonary arteries demonstrate normal size and enhancement. No mediastinal or hilar adenopathy. Esophagus is normal in caliber. Moderate hiatal hernia. Chest wall: Moderately displaced fracture fractures of the right posterior 10th and 11th ribs. Mildly displaced right anterolateral 5th rib fracture. Moderately displaced right lateral 6th rib fracture. Moderately displaced right lateral 7th and 8th rib fractures. Soft tissue gas within the right posterior chest wall. No subcutaneous emphysema. No axillary or supraclavicular adenopathy. Thyroid gland is within normal limits. ABDOMEN: Solid organs: There are multiple ill-defined low-density foci within the periphery of the right hepatic lobe posteriorly and laterally, consistent with grade 1 liver laceration. Gallbladder is within normal limits. Biliary system is non-dilated. Pancreas enhances normally, without transection. Spleen is normal in size and enhancement, without lacerations. No adrenal hematomas. Both kidneys enhance normally, without hydronephrosis or lacerations. Nonobstructing 2 mm calcifications within the left inferior pole and interpolar kidney. Nonobstructing 1 mm calcification within the inferior pole right kidney. Peritoneum and bowel: No free fluid or air. Unenhanced bowel loops demonstrate normal wall thickness and caliber. Normal appendix. Nodes and vessels: No retroperitoneal or mesenteric adenopathy. Aorta and inferior vena cava are normal in size and enhancement. Miscellaneous: No ventral hernias. PELVIS: Genitourinary: Bladder wall thickness is normal. Miscellaneous: No inguinal hernias or adenopathy. Bones: Multiple right rib fractures as described above. Mildly displaced fractures of the right L1, L2, L3, and L4 transverse processes. Pelvic ring and hip joints appear intact. No vertebral compression fractures. IMPRESSION: 1. Small right pneumothorax. 2. Right basilar pulmonary contusion. 3. Grade 1 liver laceration. 4. Right rib fractures and right lumbar transverse process fractures. 5. Hiatal hernia. 6. Coronary artery disease. 7. Findings discussed with Dr. makenzie naidu on 02/04/2022 at 15:50 hours. Dictated by: Trinh Zhou M.D. on 02/04/2022 at 15:44 Approved by: Trinh Zhou M.D. on 02/04/2022 at 15:52
--- NOTE | 2022-02-04 15:25 | ED_ITS ---
HPI - Trauma General Chief Complaint: Trauma Stated Complaint: Trauma fall History of Present Illness HPI narrative: Patient brought in by ambulance for modified trauma. Patient was on his barn roof, lost balance slid down the roof, fell 12 ft onto a knee high fence. Complaints of interscapular pain as well as right flank pain. No loss of consciousness. Patient was able to get himself up and walk into his home. Patient board and collared by EMS prior to arrival. Received 150 mcg of fentanyl and 4 mg of IV Zofran. Patient denies any loss of consciousness. No neck pain. Airway intact. Speaking full sentences Diminished right lung sounds lung sounds, full lung sounds on the left Regular heart sounds, strong bilateral radial pulses No gross deformity After returning from CT scan. Spinal precautions taken. Patient remained in C- collar. Log rolled patient to left. There is bruising to the right flank. No midline tenderness or step-off of the thoracic or lumbar spine. No laceration or abrasion to the skin. Patient remains in C-collar and backboard Related Data Home Medications Medication Instructions Recorded Confirmed thyroid (pork) 15 mg tablet 60 mg PO DAILY 12/26/17 09/10/21 ([place] Thyroid) rasagiline 1 mg tablet (Azilect) 1 mg PO DAILY 04/19/18 09/10/21 clonazepam 1 mg tablet 1 mg PO BEDTIME PRN insomnia 06/04/20 09/10/21 donepezil 5 mg tablet 5 mg PO BEDTIME 06/04/20 09/10/21 bupropion HCl 75 mg tablet 75 mg PO DAILY 12/07/20 09/10/21 carbidopa 10 mg-levodopa 100 mg 1 tab PO TID PRN wearing off or 12/07/20 09/10/21 tablet slowness carbidopa 25 mg-levodopa 250 mg 1 tab PO TID 12/07/20 09/10/21 tablet carbidopa ER 25 mg-levodopa 100 mg 1 tab PO BID 12/07/20 09/10/21 tablet,extended release entacapone 200 mg tablet 200 mg PO DAILY 12/07/20 09/10/21 Previous Rx's Medication Instructions Recorded pramipexole 0.125 mg tablet 0.125 mg PO BID #180 tabs 09/21/21 pramipexole 0.25 mg tablet 0.25 mg PO DAILY #90 tabs 09/21/21 famotidine 20 mg tablet 20 mg PO DAILY #90 tabs 01/13/22 sildenafil (pulm.hypertension) 20 20 - 100 mg PO DAILY PRN sexual 01/13/22 mg tablet activity #30 tabs meloxicam 15 mg tablet 15 mg PO DAILY PRN Low back pain 02/02/22 #60 tabs Allergies Allergy/AdvReac Type Severity Reaction Status Date / Time No Known Drug Allergies Allergy Verified 09/10/21 14:28 Review of Systems Review of Systems Narrative: GENERAL: Denies chills, fatigue, malaise, fever, sweats. HEENT: Denies sinus pain, ear pain, sore throat RESPIRATORY: Denies dyspnea, cough CARDIOVASCULAR: Denies chest pain, palpitations GASTROINTESTINAL: Denies nausea, vomiting, abdominal pain : Denies dysuria, frequency, hematuria MUSCULOSKELETAL: Positive for muscle or bony pain SKIN: Denies rash, skin lesions, positive ecchymosis NEUROLOGIC: Denies weakness, numbness ROS Unobtainable: All systems reviewed & are unremarkable except as noted in HPI and below Patient History Medical History Benign prostatic hyperplasia (~2013) Chicken pox (~1949) Chronic back pain (~1999) Facial cellulitis (2008) Fractures (~2014) History of ankle fracture History of right bundle branch block (RBBB) Hypothyroidism (~1979) Kidney stones (~2011) Low testosterone (~2014) Memory impairment Migraines (~1963) Parkinson's disease (~2019) Sleep apnea (~2009) Thyroid disorder Tinnitus (~1970) Surgical History Anesthesia History of ankle surgery (~2004) History of hernia repair (1957) History of tonsillectomy and adenoidectomy Family History Father Congestive heart failure Grandmother No problems noted. Grandfather Cancer Mother Respiratory failure Stroke Grandmother Alzheimer's disease Grandfather Aneurysm Family/Other Diabetes mellitus Social History household members: none Smoking Status: Never smoker alcohol intake: current Smoking Status: Never smoker alcohol intake frequency: a few times a month Substance Use Type: does not use Exam Narrative Exam Narrative: GENERAL: in no distress, not toxic not dyspneic HEAD: Normocephalic. Atraumatic nontender scalp and face and forehead. EYES: Pupils equal round No scleral icterus. ENT: Mucous membranes moist. NECK: Trachea midline. Patient remains in C-collar until CT scan returns results CARDIOVASCULAR: Regular rate and rhythm without murmurs RESPIRATORY: Clear to auscultation. Breath sounds equal bilaterally. No wheezes, rales, or rhonchi. GASTROINTESTINAL: Abdomen soft, non-tender EXTREMITIES: No gross deformities. BACK: No flank tenderness. Please see trauma notes for log rolling and findings NEURO: AOx4. Clear speech no facial droop light touch intact bilateral face norman nds and feet. Strong equal pyrotechnic mixer. Able to flex and extend at knees and ankles SKIN: Warm and dry PSYCH: Not anxious, is cooperative Initial Vital Signs Initial Vital Signs: Vital Signs Temperature 98.4 F 02/04/22 15:26 Pulse Rate 73 02/04/22 15:26 Respiratory Rate 20 02/04/22 15:26 Blood Pressure 157/80 H 02/04/22 15:26 Pulse Oximetry 97 02/04/22 15:26 Oxygen Delivery Method 02/04/22 15:26 Course Course Course Narrative: No new issues during course of stay Orders Ordered: ED Orders 02/04/22 15:18 CT cervical spine wo con Stat CT chest abd pel w con Stat CT head/brain wo con Stat 02/04/22 15:20 Complete Blood Count AUTO DIFF Stat Comprehensive Metabolic Panel Stat Lipase Stat 02/04/22 15:39 COVID19 -Nasal RAPID/Pre-Proc Stat 02/04/22 16:03 Type and Screen Stat 02/04/22 17:32 Urinalysis and Microscopic Stat Discontinued Medications Fentanyl (Fentanyl 100 Mcg/2 Ml Inj) 100 mcg IV NOW ONE Stop: 02/04/22 15:39 Last Admin: 02/04/22 15:40 Dose: 100 mcg Documented By: EB Fentanyl (Fentanyl 100 Mcg/2 Ml Inj) 100 mcg IV NOW ONE Stop: 02/04/22 16:45 Last Admin: 02/04/22 16:55 Dose: 100 mcg Documented By: EB Sodium Chloride (Normal Saline 0.9%) 500 mls @ 1,000 mls/hr IV BOLUS ONE Stop: 02/04/22 15:53 Last Infusion: 02/04/22 16:37 Dose: 0 mls/hr Documented By: Admin: 02/04/22 15:48 Dose: 1,000 mls/hr Documented By: SULEMA Reevaluation(s) Reevaluation #1: Reviewed results with patient and understands needs to be transferred to [facility]. Pain is controlled at this time. C-collar is cleared. CT scan of cervical spine no fracture. No midline tenderness step-off of the cervical spine. Time: 16:02 Consultations Consultation #1: Spoke with [facility], spoke with Dr. Cassandra Santiago, he will accept patient. We will be using stat Flight Time: 16:27 Vital Signs Vital signs: Vital Signs - 8 hr 02/04/22 15:26 02/04/22 15:34 02/04/22 15:33 Temperature 98.4 F Pulse Rate 73 74 73 Respiratory Rate 20 16 26 H Blood Pressure 157/80 H 137/70 Pulse Oximetry 97 99 96 Oxygen Delivery Method Room Air Room Air 02/04/22 15:40 02/04/22 15:40 02/04/22 15:45 Temperature Pulse Rate 70 67 Respiratory Rate 31 H 19 Blood Pressure 158/88 H Pulse Oximetry 96 97 Oxygen Delivery Method 02/04/22 15:45 02/04/22 15:45 02/04/22 15:50 Temperature 97.6 F Pulse Rate Respiratory Rate Blood Pressure 136/73 161/77 H Pulse Oximetry Oxygen Delivery Method 02/04/22 15:50 02/04/22 15:55 02/04/22 15:55 Temperature Pulse Rate 64 65 Respiratory Rate 22 28 H Blood Pressure 140/74 Pulse Oximetry 99 99 Oxygen Delivery Method 02/04/22 16:00 02/04/22 16:00 02/04/22 16:05 Temperature Pulse Rate 66 66 Respiratory Rate 26 H 28 H Blood Pressure 140/77 Pulse Oximetry 95 97 Oxygen Delivery Method 02/04/22 16:05 02/04/22 16:10 02/04/22 16:10 Temperature Pulse Rate 63 Respiratory Rate 26 H Blood Pressure 174/79 H 145/74 H Pulse Oximetry 96 Oxygen Delivery Method 02/04/22 16:15 02/04/22 16:15 02/04/22 16:20 Temperature Pulse Rate 64 64 Respiratory Rate 24 21 Blood Pressure 145/77 H Pulse Oximetry 96 98 Oxygen Delivery Method 02/04/22 16:20 02/04/22 16:25 02/04/22 16:25 Temperature Pulse Rate 67 Respiratory Rate 34 H Blood Pressure 144/78 H 150/99 H Pulse Oximetry 95 Oxygen Delivery Method 02/04/22 16:30 02/04/22 16:30 02/04/22 16:35 Temperature Pulse Rate 68 69 Respiratory Rate 34 H 30 H Blood Pressure 163/69 H Pulse Oximetry 94 96 Oxygen Delivery Method 02/04/22 16:35 02/04/22 16:40 02/04/22 16:40 Temperature Pulse Rate 69 Respiratory Rate 32 H Blood Pressure 146/70 H 145/72 H Pulse Oximetry 95 Oxygen Delivery Method 02/04/22 16:45 02/04/22 16:45 02/04/22 16:50 Temperature Pulse Rate 68 64 Respiratory Rate 18 23 Blood Pressure 151/71 H Pulse Oximetry 96 97 Oxygen Delivery Method 02/04/22 16:50 02/04/22 16:55 02/04/22 16:55 Temperature Pulse Rate 61 Respiratory Rate 12 Blood Pressure 156/75 H 139/72 Pulse Oximetry 91 Oxygen Delivery Method 02/04/22 17:00 02/04/22 17:00 02/04/22 17:05 Temperature Pulse Rate 68 68 Respiratory Rate 21 20 Blood Pressure 133/91 H Pulse Oximetry 93 96 Oxygen Delivery Method 02/04/22 17:05 02/04/22 17:10 02/04/22 17:10 Temperature Pulse Rate 68 Respiratory Rate 23 Blood Pressure 137/74 145/81 H Pulse Oximetry 95 Oxygen Delivery Method 02/04/22 17:15 02/04/22 17:15 02/04/22 17:20 Temperature Pulse Rate 67 65 Respiratory Rate 27 H 25 H Blood Pressure 149/87 H Pulse Oximetry 94 96 Oxygen Delivery Method 02/04/22 17:20 02/04/22 17:25 02/04/22 17:25 Temperature Pulse Rate 70 Respiratory Rate 20 Blood Pressure 145/85 H 151/88 H Pulse Oximetry 95 Oxygen Delivery Method 02/04/22 17:30 02/04/22 17:30 Temperature Pulse Rate 67 Respiratory Rate 24 Blood Pressure 156/86 H Pulse Oximetry 95 Oxygen Delivery Method MDM - Trauma Differential Diagnosis Differential diagnosis: Likely penetrating abdominal trauma, penetrating chest wound, splenic rupture, contusion of kidney, fracture of sternum, laceration of liver, fracture of pelvis and other (Vertebral fracture/rib fracture/p neumothorax/hemothorax) Lab Data Result diagrams: 02/04/22 15:20 02/04/22 15:20 Labs: Lab Results 02/04/22 02/04/22 02/04/22 Range/Units 15:20 15:20 15:39 WBC 8.9 (4.5-11.0) X10^3/uL RBC 4.17 L (4.5-5.9) X10^6/uL Hgb 13.2 L (13.5-17.5) g/dL Hct 39.5 L (41-53) % MCV 94.8 (80-100) fL MCH 31.7 (26-34) PG MCHC 33.4 (30-36) % RDW 14.0 (11.6-14.8) % Plt Count 213 (150-400) X10^3/uL Neut % (Auto) 86.8 H (50-75) % Lymph % (Auto) 7.0 L (25-40) % Todd % (Auto) 4.7 (3-14) % Eos % (Auto) 1.2 L (2-4) % Baso % (Auto) 0.3 (0-2) % Neut # (Auto) 7700 H (5194-0750) /uL Lymph # (Auto) 600 L (2306-5532) /uL Todd # (Auto) 400 (0-900) /uL Eos # (Auto) 100 (0-450) /uL Baso # (Auto) 0 (0-100) /uL Sodium 140 (137-145) mmol/L Potassium 4.3 (3.4-5.1) mmol/L Chloride 105 (98-107) mmol/L Carbon Dioxide 29 (22-32) mmol/L BUN 24 H (9-20) mg/dL Creatinine 0.93 (0.66-1.25) mg/dL Estimated GFR > 60 (>60) mL/min BUN/Creatinine Ratio 25.8 H (6-22) Glucose 130 H (80-110) mg/dL Calcium 8.6 (8.4-10.2) mg/dL Total Bilirubin 0.5 (0.2-1.3) mg/dL AST 102 H (17-59) IU/L ALT 31 (<50) IU/L Alkaline Phosphatase 99 (38-126) U/L Total Protein 6.9 (6.3-8.2) g/dL Albumin 4.0 (3.5-5.0) g/dL Globulin 2.9 (1.7-4.1) g/dL Albumin/Globulin Ratio 1.4 (1.0-2.8) Lipase 283 (23-300) U/L Urine Color Urine Appearance Urine pH (4.5-8.0) Ur Specific [place] (1.000-1.035) Urine Protein (Negative) Urine Glucose (UA) (Negative) g/dL Urine Ketones (NEGATIVE) Urine Occult Blood (Negative) Urine Nitrate (Negative) Urine Bilirubin (NEGATIVE) Urine Urobilinogen (0.2) E.U./dL Ur Leukocyte Esterase (NEGATIVE) Urine RBC (0-5/HPF) Urine WBC (0-5/HPF) Amorphous Sediment Urine Bacteria (None) Urine Mucus (Negative) Ur Culture Indicated? SARS-CoV-2 (PCR) Negative (Negative) Blood Type Antibody Screen 02/04/22 02/04/22 Range/Units 16:03 17:32 WBC (4.5-11.0) X10^3/uL RBC (4.5-5.9) X10^6/uL Hgb (13.5-17.5) g/dL Hct (41-53) % MCV (80-100) fL MCH (26-34) PG MCHC (30-36) % RDW (11.6-14.8) % Plt Count (150-400) X10^3/uL Neut % (Auto) (50-75) % Lymph % (Auto) (25-40) % Todd % (Auto) (3-14) % Eos % (Auto) (2-4) % Baso % (Auto) (0-2) % Neut # (Auto) (4877-3182) /uL Lymph # (Auto) (3054-6483) /uL Todd # (Auto) (0-900) /uL Eos # (Auto) (0-450) /uL Baso # (Auto) (0-100) /uL Sodium (137-145) mmol/L Potassium (3.4-5.1) mmol/L Chloride (98-107) mmol/L Carbon Dioxide (22-32) mmol/L BUN (9-20) mg/dL Creatinine (0.66-1.25) mg/dL Estimated GFR (>60) mL/min BUN/Creatinine Ratio (6-22) Glucose (80-110) mg/dL Calcium (8.4-10.2) mg/dL Total Bilirubin (0.2-1.3) mg/dL AST (17-59) IU/L ALT (<50) IU/L Alkaline Phosphatase (38-126) U/L Total Protein (6.3-8.2) g/dL Albumin (3.5-5.0) g/dL Globulin (1.7-4.1) g/dL Albumin/Globulin Ratio (1.0-2.8) Lipase (23-300) U/L Urine Color Yellow Urine Appearance Clear Urine pH 5.0 (4.5-8.0) Ur Specific [place] 1.010 (1.000-1.035) Urine Protein Negative (Negative) Urine Glucose (UA) Negative (Negative) g/dL Urine Ketones Negative (NEGATIVE) Urine Occult Blood Trace-lysed (Negative) Urine Nitrate Negative (Negative) Urine Bilirubin Negative (NEGATIVE) Urine Urobilinogen 0.2 (0.2) E.U./dL Ur Leukocyte Esterase Negative (NEGATIVE) Urine RBC None seen (0-5/HPF) Urine WBC None seen (0-5/HPF) Amorphous Sediment 1+ Urine Bacteria None seen (None) Urine Mucus 1+ H (Negative) Ur Culture Indicated? Cult not indicated SARS-CoV-2 (PCR) (Negative) Blood Type O Positive Antibody Screen Negative Imaging Data CT scan - head: Radiologist's Impression: [address] [address] [address] Scan Report Signed Patient: Carlos Joseph MR#: [id number] : 1945 Acct:[id number] Age/Sex: 76 / M Date of Service: 02/04/22 Loc: ED Accession Number: [id number] ?? Procedure: CT chest abd pel w con Ordering Provider: Eusebio iWlks MD PROCEDURE:? CT CHEST ABD PEL W CON ? INDICATIONS:? Trauma ? TECHNIQUE:? After the administration of intravenous contrast, 5 mm thick sections acquired from the lung apices to the symphysis.? 2.5 mm thick coronal and sagittal reformats were acquired. ?Additional 7 mm thick coronal maximum intensity projection (MIP) reformats acquired through the lungs.? Optional 10-minute delayed imaging may be performed from the kidneys to the bladder.? For radiation dose reduction, the following was used:? au tomated exposure control, adjustment of mA and/or kV according to patient size.? ? COMPARISON:? [facility], CT, CT CERVICAL SPINE WO CON, 02/04/2022, 15:21.? [facility], CT, CHEST/ABD/PEL WITH CONTRAST, 02/04/2017, 18:03. ? FINDINGS:? Image quality:? Excellent.? ? CHEST:? Lungs:? Small right pneumothorax.? Small right pleural effusion.? Moderate patchy opacity within the right lung base.? Central and peripheral airways appear patent and normal in caliber.? ? Mediastinum:? No mediastinal hematomas.? Heart size is normal.? Moderate calcification of the coronary vasculature.? No pericardial effusion.? Thoracic aorta and pulmonary arteries demonstrate normal size and enhancement.? No mediastinal or hilar adenopathy.? Esophagus is normal in caliber.? Moderate hiatal hernia.? ? Chest wall:? Moderately displaced fracture fractures of the right posterior 10th and 11th ribs.? Mildly displaced right anterolateral 5th rib fracture.? Moderately displaced right lateral 6th rib fracture.? Moderately displaced right lateral 7th and 8th rib fractures.? Soft tissue gas within the right posterior chest wall.? No subcutaneous emphysema.? No axillary or supraclavicular adenopathy.? Thyroid gland is within normal limits.? ? ? ABDOMEN:? Solid organs:? There are multiple ill-defined low-density foci within the periphery of the right hepatic lobe posteriorly and laterally, consistent with grade 1 liver laceration.? Gallbladder is within normal limits.? Biliary system is non- dilated.? Pancreas enhances normally, without transection.? Spleen is normal in size and enhancement, without lacerations.? No adrenal hematomas.? Both kidneys enhance normally, without hydronephrosis or lacerations.? Nonobstructing 2 mm calcifications within the left inferior pole and interpolar kidney.? Nonobstructing 1 mm calcification within the inferior pole right kidney. ? Peritoneum and bowel:? No free fluid or air.? Unenhanced bowel loops demonstrate normal wall thickness and caliber.? Normal appendix. ? Nodes and vessels:? No retroperitoneal or mesenteric adenopathy.? Aorta and inferior vena cava are normal in size and enhancement.? ? Miscellaneous:? No ventral hernias.? ? ? PELVIS:? Genitourinary:? Bladder wall thickness is normal.? ? Miscellaneous:? No inguinal hernias or adenopathy.? ? Bones:? Multiple right rib fractures as described above.? Mildly displaced fractures of the right L1, L2, L3, and L4 transverse processes.? Pelvic ring and hip joints appear intact.? No vertebral compression fractures.? ? ? IMPRESSION:? 1. Small right pneumothorax. 2. Right basilar pulmonary contusion. 3. Grade 1 liver laceration. 4. Right rib fractures and right lumbar transverse process fractures. 5. Hiatal hernia. 6. Coronary artery disease. 7. Findings discussed with Dr. makenzie naidu on 02/04/2022 at 15:50 hours.? ? ? Dictated by: Trinh Zhou M.D. on 02/04/2022 at 15:44 ? ? Approved by: Trinh Zhou M.D. on 02/04/2022 at 15:52 ? CT - cervical spine: Radiologist's Impression: [place] [address] CT Scan Report Signed Patient: Carlos Joseph MR#: [id number] : 1945 Acct:[id number] Age/Sex: 76 / M Date of Service: 02/04/22 Loc: ED Accession Number: [id number] ?? Procedure: CT cervical spine wo con Ordering Provider: Eusebio Wilks MD PROCEDURE:? CT CERVICAL SPINE WO CON ? INDICATIONS:? Trauma ? TECHNIQUE:? Noncontrast 3 mm thick sections acquired from the skull base to the T4 level.? Sagittal and coronal reformats were then constructed.? For radiation dose reduction, the following was used:? automated exposure control, adjustment of mA and/or kV according to patient size.? ? COMPARISON:? None. ? FINDINGS:? Image quality:? Excellent.? ? Bones:? No fractures or dislocations.? Loss of disc height, degenerative endplate changes and bilateral facet hypertrophic changes are noted throughout cervical spine more prominent at C4-5 through C6-7 levels causing [id number] central canal stenosis and bilateral neural foraminal narrowing.? Visualized superior ribs are intact.? ? Soft tissues:? Prevertebral soft tissues are normal in thickness.? Pockets of ai r are seen within right paraspinous muscle of lower neck and visualized portion of upper back.? No paravertebral hematomas.? No apical pneumothoraces.? ? ? IMPRESSION:? 1. No acute cervical spine fracture or dislocation. 2. Degenerative disc disease throughout cervical spine as above. 3. Pockets of air within right paraspinous muscle and deep soft tissue of upper back and lower neck and is of indeterminate origin.? Please correlate with CT of chest, abdomen and pelvis findings. ? ? ? Dictated by: Eliel Park M.D. on 02/04/2022 at 15:41 ? ? Approved by: Eliel Park M.D. on 02/04/2022 at 15:44 ? CT chest abdomen and pelvis: Radiologist's Impression: [place] [address] CT Scan Report Signed Patient: Carlos Joseph MR#: [id number] : 1945 Acct:[id number] Age/Sex: 76 / M Date of Service: 02/04/22 Loc: ED Accession Number: [id number] ?? Procedure: CT chest abd pel w con Ordering Provider: Eusebio Wilks MD PROCEDURE:? CT CHEST ABD PEL W CON ? INDICATIONS:? Trauma ? TECHNIQUE:? After the administration of intravenous contrast, 5 mm thick sections acquired from the lung apices to the symphysis.? 2.5 mm thick coronal and sagittal reformats were acquired. ?Additional 7 mm thick coronal maximum intensity projection (MIP) reformats acquired through the lungs.? Optional 10-minute delayed imaging may be performed from the kidneys to the bladder.? For radiation dose reduction, the following was used:? automated exposure control, adjustment of mA and/or kV according to patient size.? ? COMPARISON:? [facility], CT, CT CERVICAL SPINE WO CON, 02/04/2022, 15:21.? [facility], CT, CHEST/ABD/PEL WITH CONTRAST, 02/04/2017, 18:03. ? FINDINGS:? Image quality:? Excellent.? ? CHEST:? Lungs:? Small right pneumothorax.? Small right pleural effusion.? Moderate patchy opacity within the right lung base.? Central and peripheral airways appear patent and normal in caliber.? ? Mediastinum:? No mediastinal hematomas.? Heart size is normal.? Moderate calcification of the coronary vasculature.? No pericardial effusion.? Thoracic aorta and pulmonary arteries demonstrate normal size and enhancement.? No mediastinal or hilar adenopathy.? Esophagus is normal in caliber.? Moderate hiatal hernia.? ? Chest wall:? Moderately displaced fracture fractures of the right posterior 10th and 11th ribs.? Mildly displaced right anterolateral 5th rib fracture.? Moderately displaced right lateral 6th rib fracture.? Moderately displaced right lateral 7th and 8th rib fractures.? Soft tissue gas within the right posterior chest wall.? No subcutaneous emphysema.? No axillary or supraclavicular adenopathy.? Thyroid gland is within normal limits.? ? ? ABDOMEN:? Solid organs:? There are multiple ill-defined low-density foci within the periphery of the right hepatic lobe posteriorly and laterally, consistent with grade 1 liver laceration.? Gallbladder is within normal limits.? Biliary system is non- dilated.? Pancreas enhances normally, without transection.? Spleen is normal in size and enhancement, without lacerations.? No adrenal hematomas.? Both kidneys enhance normally, without hydronephrosis or lacerations.? Nonobstructing 2 mm calcifications within the left inferior pole and interpolar kidney.? Nonobstructing 1 mm calcification within the inferior pole right kidney. ? Peritoneum and bowel:? No free fluid or air.? Unenhanced bowel loops demonstrate normal wall thickness and caliber.? Normal appendix. ? Nodes and vessels:? No retroperitoneal or mesenteric adenopathy.? Aorta and inf erior vena cava are normal in size and enhancement.? ? Miscellaneous:? No ventral hernias.? ? ? PELVIS:? Genitourinary:? Bladder wall thickness is normal.? ? Miscellaneous:? No inguinal hernias or adenopathy.? ? Bones:? Multiple right rib fractures as described above.? Mildly displaced fractures of the right L1, L2, L3, and L4 transverse processes.? Pelvic ring and hip joints appear intact.? No vertebral compression fractures.? ? ? IMPRESSION:? 1. Small right pneumothorax. 2. Right basilar pulmonary contusion. 3. Grade 1 liver laceration. 4. Right rib fractures and right lumbar transverse process fractures. 5. Hiatal hernia. 6. Coronary artery disease. 7. Findings discussed with Dr. makenzie naidu on 02/04/2022 at 15:50 hours.? ? ? Dictated by: Trinh Zhou M.D. on 02/04/2022 at 15:44 ? ? Approved by: Trinh Zhou M.D. on 02/04/2022 at 15:52 ? MDM Narrative Medical decision making narrative: Appropriate for transfer for higher level of care for trauma. Patient hemodynamically stable. Neurovascularly intact. Critical Care Time Critical Care Time Attestation: Critical Care Time 35 minutes: Critical care time is separate from other billable procedures. This critical care time includes consultation with family and other consulting doctors, review of records, and interpretation of data from labs, imaging, etc. Discharge Plan Departure Patient Disposition: [facility] Clinical Impression: Liver laceration, grade I, Pneumothorax, Multiple fractures of rib involving four or more ribs, Closed fracture of transverse process of lumbar vertebra Prescriptions: No Action thyroid (pork) [[place] Thyroid] 15 mg tablet 60 mg PO DAILY rasagiline [Azilect] 1 mg tablet 1 mg PO DAILY pramipexole 0.125 mg tablet 0.125 mg PO BID Qty: 180 3RF pramipexole 0.25 mg tablet 0.25 mg PO DAILY Qty: 90 3RF sildenafil (pulm.hypertension) 20 mg tablet 20 - 100 mg PO DAILY PRN (Reason: sexual activity) Qty: 30 2RF Rx Instructions: Take 30 minutes prior to sexual activity. famotidine 20 mg tablet 20 mg PO DAILY Qty: 90 1RF meloxicam 15 mg tablet 15 mg PO DAILY PRN (Reason: Low back pain) Qty: 60 0RF donepezil 5 mg tablet 5 mg PO BEDTIME clonazepam 1 mg tablet 1 mg PO BEDTIME PRN (Reason: insomnia) entacapone 200 mg Tablet 200 mg PO DAILY Rx Instructions: takes at 0900 in the am carbidopa-levodopa 10-100 mg Tablet 1 tab PO TID PRN (Reason: wearing off or slowness) carbidopa-levodopa 25-100 mg Tablet Extended Release 1 tab PO BID carbidopa-levodopa 25-250 mg Tablet 1 tab PO TID bupropion HCl 75 mg Tablet 75 mg PO DAILY Referrals: Zay Gillespie MD [Primary Care Provider] -
[2022-02-04 15:31] LABS: Add Manual Diff / Slide Review NO; Basophils Absolute Auto 0 /uL (0-100); Basophils Percent Auto 0.3 % (0-2); Eosinophils Absolute Auto 100 /uL (0-450); Eosinophils Percent Auto 1.2 % (2-4); Hematocrit 39.5 % (41-53); Hemoglobin 13.2 g/dL (13.5-17.5); Lymphocytes Absolute Auto 600 /uL (1100-4500); Mean Corpuscular HGB Conc 33.4 % (30-36); Mean Corpuscular Hemoglobin 31.7 PG (26-34); Mean Corpuscular Volume 94.8 fL (80-100); Monocytes Absolute Auto 400 /uL (0-900); Monocytes Percent Auto 4.7 % (3-14); Neutrophils Absolute Auto 7700 /uL (1500-7000); Neutrophils Percent Auto 86.8 % (50-75); Platelet Count 213 X10^3/uL (150-400); Red Blood Cell Count 4.17 X10^6/uL (4.5-5.9); White Blood Cell Count 8.9 X10^3/uL (4.5-11.0)
[2022-02-04] MEDS: fentaNYL 100 MCG/2 ML INJ IV ×2 (15:40→16:55)
[2022-02-04 15:45] LABS: Alanine Aminotransferase 31 IU/L (<50); Albumin Globulin Ratio 1.4 (1.0-2.8); Alkaline Phosphatase 99 U/L (38-126); Aspartate Aminotransferase 102 IU/L (17-59); BUN Creatinine Ratio 25.8 (6-22); Bilirubin Total 0.5 mg/dL (0.2-1.3); Blood Urea Nitrogen 24 mg/dL (9-20); Calcium 8.6 mg/dL (8.4-10.2); Carbon Dioxide 29 mmol/L (22-32); Chloride 105 mmol/L (98-107); Estimated Glomerular Filt Rate > 60 mL/min (>60); Globulin 2.9 g/dL (1.7-4.1); Glucose 130 mg/dL (80-110); HEMOLYSIS 22 (0-50); Lipase 283 U/L (23-300); Potassium 4.3 mmol/L (3.4-5.1); Sodium 140 mmol/L (137-145); Total Protein 6.9 g/dL (6.3-8.2)
[2022-02-04] MEDS: SODIUM CHLORIDE 0.9% 500 ML 1000 ML IV (15:48)
[2022-02-04 16:16] LABS: COVID19 -Nasal RAPID Negative (Negative)
--- NOTE | 2022-02-04 16:29 | PC.NURSE ---
Addendum entered by Cole Yun R.N. 02/04/22 16:29: removed c-collar at 1610. Original Note: C-collar removed, c-spine cleared.
--- NOTE | 2022-02-04 17:28 | PC.NURSE ---
Received authorization from Benita Chavarria, spouse to give medical information on patient. Pt was signed up at the bedside for [facility] insurance. Membership receipt printed and placed in chart. ID# [id number]
--- NOTE | 2022-02-04 17:42 | PC.NURSE ---
[facility] here to transport pt via helicopter to [facility]. Report given to med flight crew, all questions answered. Pt agreeable to transfer. Pt VSS at time of departure from ER.
[2022-02-04 17:53] LABS: Appearance Urine UA CLEAR; Bilirubin Urine UA NEGATIVE (NEGATIVE); Color Urine UA YELLOW; Glucose Urine UA NEGATIVE (Negative); Ketones Urine UA NEGATIVE (NEGATIVE); Leukocyte Esterase Urine UA NEGATIVE (NEGATIVE); Nitrite Urine UA NEGATIVE (Negative); Occult Blood Urine UA TRACE-LYSED (Negative); Protein Urine UA NEGATIVE (Negative); Urobilinogen Urine UA 0.2 E.U./dL (0.2)
[2022-02-04 18:19] LABS: Amorphous Sediment Urine 1+; Bacteria Urine None Seen; Mucus Urine 1+ (Negative); RBC Urine None Seen (0-5/HPF); WBC Urine None Seen (0-5/HPF)
[2022-02-04 18:20] LABS: Culture Indicated Urine Cult Not Indicated
== END 2022-02-04 17:59 | disposition short-term general hospital (02) ==
PROVIDERS: Emergency Provider Emergency Medicine; PCP Student in an Organized Health Care Education/Training Program
DX: S36.114A Minor laceration of liver, initial encounter (principal); J93.9 Pneumothorax, unspecified; S22.41XA Multiple fractures of ribs, right side, initial encounter for closed fracture; S32.018A Other fracture of first lumbar vertebra, initial encounter for closed fracture; S32.028A Other fracture of second lumbar vertebra, initial encounter for closed fracture; S32.038A Other fracture of third lumbar vertebra, initial encounter for closed fracture; S32.048A Other fracture of fourth lumbar vertebra, initial encounter for closed fracture; W13.2XXA Fall from, out of or through roof, initial encounter; Z20.822 Contact with and (suspected) exposure to COVID-19
CPT/HCPCS: 70450; 71260; 72125; 74177; 80053; 81001; 83690; 85025; 86850; 86900; 86901; 87635; 96361; 96374; 96376; 99285; 99291; C9803; G0390; J3010; Q9967

== ENCOUNTER → 2022-10-05 08:50 | Outpatient (CLI) | payer MEDICARE, SELFPAY ==
[2020-12-06 23:46] VITALS: BMI 24.3
--- NOTE | 2022-10-05 | DI.US.S_ITS ---
PROCEDURE: US ABDOMEN LIMITED INDICATIONS: RIGHT UPPER QUADRANT/RIGHT LOWER QUADRANT TRAUMA ?HEMATOMA TECHNIQUE: Real-time scanning was performed of the abdominal and retroperitoneal organs, with image documentation. COMPARISON: None. FINDINGS: Liver: Liver is normal in size and homogeneous in echotexture. Gallbladder: Normal. Biliary ducts: Intrahepatic bile ducts are non-dilated. Extrahepatic bile duct caliber measures 4.7 mm. Normal is 6-7 mm or less in diameter, or 10 mm or less post-cholecystectomy. Pancreas: Visualized portions of the pancreas are sonographically normal. Right kidney: Normal size and echogenicity. No hydronephrosis. Sub cm cystic lesion with a thin internal septation on the inferior pole, likely benign. Multiple punctate nonobstructing stones. IMPRESSION: Punctate nonobstructing right-sided renal stones. No abdominal hematoma. Dictated by: Christiano Araiza M.D. on 10/05/2022 at 11:21 Approved by: Christiano Araiza M.D. on 10/05/2022 at 11:24
== END ==
PROVIDERS: PCP Student in an Organized Health Care Education/Training Program; Referring Provider Naturopath; Visit Provider Naturopath
DX: N20.0 Calculus of kidney (principal); R10.11 Right upper quadrant pain
CPT/HCPCS: 76705

== ENCOUNTER → 2022-11-16 09:01 | Outpatient (CLI) | payer MEDICARE, SELFPAY ==
[2020-12-06 23:46] VITALS: BMI 24.3
[2022-11-16 09:47] LABS: Add Manual Diff / Slide Review NO; Basophils Absolute Auto 0 /uL (0-100); Basophils Percent Auto 0.5 % (0-2); Eosinophils Absolute Auto 200 /uL (0-450); Eosinophils Percent Auto 2.6 % (2-4); Hematocrit 39.2 % (41-53); Hemoglobin 13.4 g/dL (13.5-17.5); Lymphocytes Absolute Auto 800 /uL (1100-4500); Lymphocytes Percent Auto 8.6 % (25-40); Mean Corpuscular HGB Conc 34.1 % (30-36); Mean Corpuscular Hemoglobin 32.3 PG (26-34); Mean Corpuscular Volume 94.9 fL (80-100); Monocytes Absolute Auto 500 /uL (0-900); Monocytes Percent Auto 4.8 % (3-14); Neutrophils Absolute Auto 7900 /uL (1500-7000); Neutrophils Percent Auto 83.5 % (50-75); Platelet Count 281 X10^3/uL (150-400); Red Blood Cell Count 4.13 X10^6/uL (4.5-5.9); Red Cell Distribution Width 14.2 % (11.6-14.8); White Blood Cell Count 9.5 X10^3/uL (4.5-11.0)
[2022-11-16 10:11] LABS: Erythrocyte Sedimentation Rate 17 MM/HR (0-15)
[2022-11-16 10:12] LABS: HEMOLYSIS < 15 (0-50); Iron 175 ug/dL (49-181)
[2022-11-16 10:15] LABS: Alanine Aminotransferase 9 IU/L (<50); Albumin 4.5 g/dL (3.5-5.0); Albumin Globulin Ratio 1.6 (1.0-2.8); Alkaline Phosphatase 96 U/L (38-126); Aspartate Aminotransferase 34 IU/L (17-59); BUN Creatinine Ratio 20.7 (6-22); Blood Urea Nitrogen 18 mg/dL (9-20); Calcium 9.3 mg/dL (8.4-10.2); Carbon Dioxide 30 mmol/L (22-32); Chloride 103 mmol/L (98-107); Estimated Glomerular Filt Rate > 60 mL/min (>60); Globulin 2.9 g/dL (1.7-4.1); Glucose 87 mg/dL (80-110); HEMOLYSIS < 15 (0-50); Potassium 3.8 mmol/L (3.4-5.1); Sodium 142 mmol/L (137-145); Total Protein 7.4 g/dL (6.3-8.2)
[2022-11-16 10:22] LABS: Percent Iron Saturation 47 % (20-50); Total Iron Binding Capacity 376 ug/dL (261-462); Transferrin 270 mg/dL (206-381)
[2022-11-16 10:42] LABS: TSH w/ Reflex to FT4 2.78 uIU/mL (0.47-4.68)
[2022-11-16 11:22] LABS: Folate > 20.0 ng/mL (2.76-20.0); Vitamin B12 Reflex MMA if <400 > 1000 pg/mL (239-931)
[2022-11-16 13:26] LABS: Appearance Urine UA CLEAR; Bilirubin Urine UA NEGATIVE (NEGATIVE); Color Urine UA YELLOW; Glucose Urine UA NEGATIVE (Negative); Ketones Urine UA NEGATIVE (NEGATIVE); Leukocyte Esterase Urine UA NEGATIVE (NEGATIVE); Nitrite Urine UA NEGATIVE (Negative); Occult Blood Urine UA NEGATIVE (Negative); Protein Urine UA NEGATIVE (Negative); Urobilinogen Urine UA 0.2 E.U./dL (0.2)
[2022-11-16 13:44] LABS: Bacteria Urine Occasional (0-1); Culture Indicated Urine Cult Not Indicated; RBC Urine None Seen (0-5/HPF); Squamous Epithelial Cell Urine None Seen (0-5/HPF); WBC Urine 0-1/HPF (0-5/HPF)
[2022-11-25 11:25] LABS: Creatinine, Urine 0.39
[2022-11-25 11:27] LABS: Inorg Arsenic/ Creat Ratio 36
[2022-11-25 11:30] LABS: Mercury, Urine NONE DETECTED
== END ==
PROVIDERS: PCP Pediatrics; Referring Provider Pediatrics; Visit Provider Pediatrics
DX: E03.9 Hypothyroidism, unspecified (principal); G20 Parkinson's disease; R41.0 Disorientation, unspecified
CPT/HCPCS: 36415; 80053; 81001; 82175; 82570; 82607; 82746; 83540; 83550; 83825; 84443; 85025; 85651

== ENCOUNTER → 2022-12-07 12:51 | Outpatient (CLI) | payer MEDICARE, SELFPAY ==
[2020-12-06 23:46] VITALS: BMI 24.3
--- NOTE | 2022-12-07 12:52 | DI.RAD.S_ITS ---
PROCEDURE: XR RIBS RT MIN 3V W CXR 1V INDICATIONS: ribs pop with pain TECHNIQUE: 2 views of the right ribs were acquired, along with a single view chest. COMPARISON: [facility], CT, CT CHEST ABD PEL W CON, 02/04/2022, 15:21. FINDINGS: Surgical changes and devices: None. Bones and chest wall: Old healed right lateral rib fracture. No acute fracture is seen. Generalized osteopenia. Degenerative changes are seen in the included spine. No suspicious bony lesions. Overlying soft tissues appear unremarkable. Lungs and pleura: No pleural effusions or pneumothorax. Mild scarring or atelectasis in the right lung base. Mediastinum: Mediastinal contours appear normal. Heart size is normal. IMPRESSION: Old healed right-sided rib fractures. No acute displaced rib fracture is seen. No pneumothorax. Approved by: Joni Palmer M.D. on 12/07/2022 at 21:49
== END ==
PROVIDERS: PCP Pediatrics; Referring Provider Pediatrics; Visit Provider Pediatrics
DX: M85.88 Other specified disorders of bone density and structure, other site (principal); E03.9 Hypothyroidism, unspecified; S22.49XA Multiple fractures of ribs, unspecified side, initial encounter for closed fracture; G20 Parkinson's disease; Z87.81 Personal history of (healed) traumatic fracture
CPT/HCPCS: 71101

== ENCOUNTER 2023-01-05 12:23 | Emergency (ER) | payer MEDICARE, SELFPAY ==
[2020-12-06 23:46] VITALS: BMI 24.3
[2023-01-05 12:32] VITALS: BP 106/58; PULSE 78; RESP 14; TEMP 36.9; O2SAT 96; BMI 22.4
--- NOTE | 2023-01-05 12:41 | DI.CT.S_ITS ---
PROCEDURE: CT HEAD/BRAIN WO CON INDICATIONS: fall, confusion TECHNIQUE: Noncontrast 4.5 mm thick angled axial sections acquired from the foramen magnum to the vertex, with coronal and sagittal reformats. For radiation dose reduction, the following was used: automated exposure control, adjustment of mA and/or kV according to patient size. COMPARISON: [facility], CT, CT HEAD/BRAIN WO CON, 12/06/2020, 19:53. [facility], CT, CT FACIAL BONES WO CON, 01/05/2023, 12:58. [facility], CT, CT HEAD/BRAIN WO CON, 02/04/2022, 15:21. FINDINGS: Image quality: Excellent. CSF spaces: Basal cisterns are patent. No extra-axial fluid collections. The ventricles are symmetric in size and shape. Brain: No intracranial bleeds or masses. There is cerebral volume loss for age, with resultant ventricular and sulcal prominence. There are periventricular and deep white matter chronic small vessel ischemic changes. There is intracranial internal carotid artery atherosclerosis. Skull and face: Calvarium and visualized facial bones appear intact, without suspicious lesions. Areas of scattered mild scalp thickening are seen, which are similar to the prior CT. Sinuses: Byso-it-[id number] mucosal thickening can be seen within the right maxillary sinus. Visualized sinuses and mastoids are otherwise relatively clear. IMPRESSION: No acute intracranial hemorrhage is seen. No acute intracranial process is seen. Dictated by: Armen Garduno M.D. on 01/05/2023 at 12:12 Approved by: Armen Garduno M.D. on 01/05/2023 at 12:13
--- NOTE | 2023-01-05 12:41 | DI.CT.S_ITS ---
PROCEDURE: CT FACIAL BONES WO CON INDICATIONS: fall, confusion TECHNIQUE: Noncontrast 2.5 mm thick axial images acquired from the mandible through the frontal sinuses, with coronal and sagittal reformatting. For radiation dose reduction, the following was used: automated exposure control, adjustment of mA and/or kV according to patient size. COMPARISON: [facility], CT, CT HEAD/BRAIN WO CON, 01/05/2023, 12:58. FINDINGS: Image quality: Excellent. Bones and teeth: Orbital baker are intact. Sinus baker show no fracture or deformity. Nasal bones and septum are intact. Visualized portions of the mandible demonstrate no fractures or subluxation. Zygomatic arches are intact. Pterygoid plates are intact. Visualized portions of the skull base and auditory canals are intact. Sinuses: Oegq-or-sjmqpsnk mucosal thickening can be seen within the right maxillary sinus. Minimal mucosal thickening can be seen within the ethmoid air cells. The paranasal sinuses otherwise appear relatively clear. Small bilateral todd bullosa can be seen. Soft tissues: No edema, masses, or fluid collections. No enlarged lymph nodes. No soft tissue lacerations or debris. Vascular: Visualized vascular structures appear normal in the absence of contrast. Bony vascular foramina and canals are intact. IMPRESSION: Negative for displaced facial bone fracture. Focal right maxillary sinus disease noted. Dictated by: Armen Garduno M.D. on 01/05/2023 at 12:15 Approved by: Armen Garduno M.D. on 01/05/2023 at 12:16
[2023-01-05 13:44] LABS: Add Manual Diff / Slide Review NO; Basophils Absolute Auto 0 /uL (0-100); Basophils Percent Auto 0.4 % (0-2); Eosinophils Absolute Auto 0 /uL (0-450); Eosinophils Percent Auto 0.3 % (2-4); Hematocrit 36.2 % (41-53); Hemoglobin 12.5 g/dL (13.5-17.5); Lymphocytes Absolute Auto 700 /uL (1100-4500); Mean Corpuscular HGB Conc 34.4 % (30-36); Mean Corpuscular Hemoglobin 31.9 PG (26-34); Mean Corpuscular Volume 92.8 fL (80-100); Monocytes Absolute Auto 600 /uL (0-900); Monocytes Percent Auto 6.1 % (3-14); Neutrophils Absolute Auto 8200 /uL (1500-7000); Neutrophils Percent Auto 86.2 % (50-75); Platelet Count 304 X10^3/uL (150-400); Red Blood Cell Count 3.91 X10^6/uL (4.5-5.9); Red Cell Distribution Width 13.8 % (11.6-14.8); White Blood Cell Count 9.5 X10^3/uL (4.5-11.0)
[2023-01-05 13:52] LABS: Alanine Aminotransferase 20 IU/L (<50); Albumin 4.3 g/dL (3.5-5.0); Albumin Globulin Ratio 1.5 (1.0-2.8); Alkaline Phosphatase 102 U/L (38-126); Aspartate Aminotransferase 37 IU/L (17-59); BUN Creatinine Ratio 26.5 (6-22); Bilirubin Total 0.9 mg/dL (0.2-1.3); Blood Urea Nitrogen 27 mg/dL (9-20); Calcium 9.1 mg/dL (8.4-10.2); Carbon Dioxide 31 mmol/L (22-32); Chloride 103 mmol/L (98-107); Estimated Glomerular Filt Rate > 60 mL/min (>60); Globulin 2.9 g/dL (1.7-4.1); Glucose 100 mg/dL (80-110); HEMOLYSIS < 15 (0-50); Potassium 3.7 mmol/L (3.4-5.1); Sodium 140 mmol/L (137-145); Total Protein 7.2 g/dL (6.3-8.2)
[2023-01-05 14:30] LABS: Appearance Urine UA CLEAR; Bilirubin Urine UA NEGATIVE (NEGATIVE); Color Urine UA ORANGE; Glucose Urine UA NEGATIVE (Negative); Ketones Urine UA TRACE (NEGATIVE); Leukocyte Esterase Urine UA NEGATIVE (NEGATIVE); Nitrite Urine UA NEGATIVE (Negative); Occult Blood Urine UA NEGATIVE (Negative); Protein Urine UA TRACE (Negative)
[2023-01-05 14:33] LABS: UR Morphine/Opiate cutoff 300 Negative (Negative); Ur Creatinine Normal (Normal); Ur Specific Gravity Normal (Normal); Urine Amphetamines Negative (Negative); Urine Barbiturates Negative (Negative); Urine Benzodiazepines Negative (Negative); Urine Cocaine Negative (Negative); Urine MDMA Negative (Negative); Urine Methadone Negative (Negative); Urine Methamphetamines Negative (Negative); Urine Oxycodone Negative (Negative); Urine Phencyclidine Negative (Negative); Urine Tetrahydrocannabinol Negative (Negative); Urine Tricyclic Antidepressant Negative (Negative); Urine pH Normal (Normal)
[2023-01-05 14:34] LABS: Bacteria Urine None Seen; Culture Indicated Urine Cult Not Indicated; Mucus Urine 2+ (Negative); RBC Urine None Seen (0-5/HPF); Squamous Epithelial Cell Urine None Seen (0-5/HPF); WBC Urine None Seen (0-5/HPF)
--- NOTE | 2023-01-05 15:25 | ED_ITS ---
HPI - Neuro Symptoms/Deficit <Eusebio Wilks MD - Last Filed: 01/24/23 21:58> General Chief Complaint: Neuro Symptoms/Deficit Stated Complaint: Hallucinations/Fall Time Seen by Provider: 01/05/23 15:05 Source: EMS Mode of arrival: EMS History of Present Illness HPI Narrative: Patient brought in by ambulance from home. Here for altered mental status/visual and auditory hallucinations. Patient denies SI or HI. Patient denies any drugs or alcohol. I spoke with patient's friend, Armani Nassar, she had called him today and EMS answer the phone. Evidently he had called EMS because he was thinking he was doing CPR on his friend Benita Nassar. Patient gave me great detail about doing CPR on her. He drug her across the floor into the living room. Her lips were blue. It was hard to compress on her chest. She also states he has been seeing people on his property that are not there. He is had frequent falls as well. As far as she knows no chest pain headache nausea vomiting urinary complaints. Patient is a poor historian. He is awake alert to self and date of . He does not recall any chest pain abdominal pain or headache. I spoke with Armani by phone. She is concerned about his safety and falling. Neighbors have express his behavior is concerning as well. They do not feel he is well enough are safe enough to go home On Anticoagulants: No Related Data Home Medications Medication Instructions Recorded Confirmed thyroid (pork) 15 mg tablet 60 mg PO DAILY 12/26/17 01/07/23 ([place] [facility]) rasagiline 1 mg tablet (Azilect) 1 mg PO DAILY 04/19/18 01/07/23 naloxone 4 mg/actuation nasal spray 1 spray intranasal Q3M PRN 02/23/22 01/07/23 clonazepam 1 mg tablet 1 mg PO DAILY 04/16/22 01/07/23 Previous Rx's Medication Instructions Recorded hydrocodone 7.5 mg-acetaminophen 1 tab PO BID PRN pain #30 tabs 05/04/22 325 mg tablet pramipexole 0.125 mg tablet 0.125 mg PO BID #180 tabs 09/22/22 meloxicam 15 mg tablet 15 mg PO DAILY PRN Low back pain 10/11/22 #60 tabs bupropion HCl 75 mg tablet See Rx Instructions .Route 11/11/22 .COMPLEX #180 tabs pramipexole 0.25 mg tablet See Rx Instructions .Route 11/11/22 .COMPLEX #90 tabs carbidopa 10 mg-levodopa 100 mg 1 tab PO BID wearing off or 12/02/22 tablet slowness #180 tabs carbidopa 25 mg-levodopa 250 mg 1 tab PO TID #270 tabs 12/02/22 tablet donepezil 5 mg tablet 5 mg PO BEDTIME #90 tabs 01/03/23 entacapone 200 mg tablet 200 mg PO DAILY #90 tabs 01/24/23 famotidine 20 mg tablet 20 mg PO DAILY #90 tabs 01/24/23 Allergies Allergy/AdvReac Type Severity Reaction Status Date / Time No Known Drug Allergies Allergy Verified 01/07/23 10:58 Review of Systems <Eusebio Wilks MD - Last Filed: 01/24/23 21:58> Review of Systems Narrative: GENERAL: negative chills, fatigue, malaise, fever, sweats. HEENT: negative sinus pain, ear pain, sore throat RESPIRATORY: negative dyspnea, cough CARDIOVASCULAR: negative chest pain, palpitations GASTROINTESTINAL: negative nausea, vomiting, abdominal pain : negative dysuria, frequency, hematuria MUSCULOSKELETAL: negative muscle or bony pain SKIN: negative rash, skin lesions NEUROLOGIC: negative weakness, numbness PSYCH: Negative SI negative HI, positive visual hallucinations ROS Unobtainable: All systems reviewed & are unremarkable except as noted in HPI and below Hematologic/Lymphatic On Anticoagulants: No Patient History <Eusebio Wilks MD - Last Filed: 01/24/23 21:58> Medical History Benign prostatic hyperplasia (~2013) Brain TIA Chicken pox (~1949) Confusion Costal margin pain Dementia in Parkinson's disease Esophageal ring Fractures (~2014) History of ankle fracture History of right bundle branch block (RBBB) Hypothyroidism (~1979) Kidney stones (~2011) Low testosterone (~2014) Migraines (~1963) Parkinson's disease (~2019) Sleep apnea (~2009) Tinnitus (~1970) Surgical History Anesthesia History of ankle surgery (~2004) History of hernia repair (1957) History of tonsillectomy and adenoidectomy Family History Father Congestive heart failure Grandmother No problems noted. Grandfather Cancer Mother Respiratory failure Stroke Grandmother Alzheimer's disease Grandfather Aneurysm Family/Other Diabetes mellitus Social History household members: none Smoking Status: Never smoker alcohol intake: current Smoking Status: Never smoker alcohol intake frequency: a few times a month Substance Use Type: does not use Exam <Eusebio Wilks MD - Last Filed: 01/24/23 21:58> Narrative Exam Narrative: GENERAL: in no distress, not toxic not dyspneic HEAD: Normocephalic. EYES: Pupils equal round ENT: Mucous membranes moist. NECK: Trachea midline. CARDIOVASCULAR: Regular rate and rhythm RESPIRATORY: Clear to auscultation. Breath sounds equal bilaterally. No wheezes, rales, or rhonchi. GASTROINTESTINAL: Abdomen soft, non-tender EXTREMITIES: No gross deformities. BACK: No flank tenderness. NEURO: Patient is awake alert oriented itself and date of only. Not to date or time. 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 Initial Vital Signs Initial Vital Signs: Vital Signs Temperature 98.4 F 01/05/23 12:32 Pulse Rate 78 01/05/23 12:32 Respiratory Rate 14 01/05/23 12:32 Blood Pressure 106/58 L 01/05/23 12:32 Pulse Oximetry 96 01/05/23 12:32 Oxygen Delivery Method Room Air 01/05/23 12:32 <Karina Velasco DO - Last Filed: 01/05/23 20:07> Initial Vital Signs Initial Vital Signs: Vital Signs Temperature 98.4 F 01/05/23 12:32 Pulse Rate 78 01/05/23 12:32 Respiratory Rate 14 01/05/23 12:32 Blood Pressure 106/58 L 01/05/23 12:32 Pulse Oximetry 96 01/05/23 12:32 Oxygen Delivery Method Room Air 01/05/23 12:32 Course <Eusebio Wilks MD - Last Filed: 01/24/23 21:58> Orders Ordered: ED Orders 01/05/23 12:41 CT facial bones wo con Stat CT head/brain wo con Stat 01/05/23 13:31 CMP [Comprehensive Metabolic Panel] Stat Complete Blood Count AUTO DIFF Stat ETOH [Ethanol (ETOH)] Stat 01/05/23 14:22 Urinalysis and Microscopic Stat Urine Drug Screen, Rapid Stat 01/05/23 14:55 EKG-12 Lead Stat 01/05/23 15:24 Consult to [facility] [place] Special Education Resource Room Teacher Stat 01/05/23 18:07 Consult to Physical Therapy Evaluate & Treat Vital Signs Vital signs: Vital Signs - 8 hr 01/05/23 12:32 01/05/23 15:48 01/05/23 18:40 Temperature 98.4 F Pulse Rate 78 67 61 Respiratory Rate 14 16 Blood Pressure 106/58 L 154/75 H 128/66 Pulse Oximetry 96 95 97 Oxygen Delivery Method Room Air Room Air Room Air <Karina Velasco DO - Last Filed: 01/05/23 20:07> Orders Ordered: ED Orders 01/05/23 12:41 CT facial bones wo con Stat CT head/brain wo con Stat 01/05/23 13:31 CMP [Comprehensive Metabolic Panel] Stat Complete Blood Count AUTO DIFF Stat ETOH [Ethanol (ETOH)] Stat 01/05/23 14:22 Urinalysis and Microscopic Stat Urine Drug Screen, Rapid Stat 01/05/23 14:55 EKG-12 Lead Stat 01/05/23 15:24 Consult to [facility] Special Education Resource Room Teacher Stat 01/05/23 18:07 Consult to Physical Therapy Evaluate & Treat Vital Signs Vital signs: Vital Signs - 8 hr 01/05/23 12:32 01/05/23 15:48 01/05/23 18:40 Temperature 98.4 F Pulse Rate 78 67 61 Respiratory Rate 14 16 Blood Pressure 106/58 L 154/75 H 128/66 Pulse Oximetry 96 95 97 Oxygen Delivery Method Room Air Room Air Room Air MDM - Neuro Symptoms/Deficit <Eusebio Wilks MD - Last Filed: 01/24/23 21:58> Lab Data 01/05/23 13:31 01/05/23 13:31 Labs: Lab Results 01/05/23 01/05/23 01/05/23 Range/Units 13:31 13:31 13:31 WBC 9.5 (4.5-11.0) X10^3/uL RBC 3.91 L (4.5-5.9) X10^6/uL Hgb 12.5 L (13.5-17.5) g/dL Hct 36.2 L (41-53) % MCV 92.8 (80-100) fL MCH 31.9 (26-34) PG MCHC 34.4 (30-36) % RDW 13.8 (11.6-14.8) % Plt Count 304 (150-400) X10^3/uL Neut % (Auto) 86.2 H (50-75) % Lymph % (Auto) 7.0 L (25-40) % [place] % (Auto) 6.1 (3-14) % Eos % (Auto) 0.3 L (2-4) % Baso % (Auto) 0.4 (0-2) % Neut # (Auto) 8200 H (5069-0422) /uL Lymph # (Auto) 700 L (9489-9203) /uL [place] # (Auto) 600 (0-900) /uL Eos # (Auto) 0 (0-450) /uL Baso # (Auto) 0 (0-100) /uL Sodium 140 (137-145) mmol/L Potassium 3.7 (3.4-5.1) mmol/L Chloride 103 (98-107) mmol/L Carbon Dioxide 31 (22-32) mmol/L BUN 27 H (9-20) mg/dL Creatinine 1.02 (0.66-1.25) mg/dL Estimated GFR > 60 (>60) mL/min BUN/Creatinine Ratio 26.5 H (6-22) Glucose 100 (80-110) mg/dL Calcium 9.1 (8.4-10.2) mg/dL Total Bilirubin 0.9 (0.2-1.3) mg/dL AST 37 (17-59) IU/L ALT 20 (<50) IU/L Alkaline Phosphatase 102 (38-126) U/L Total Protein 7.2 (6.3-8.2) g/dL Albumin 4.3 (3.5-5.0) g/dL Globulin 2.9 (1.7-4.1) g/dL Albumin/Globulin Ratio 1.5 (1.0-2.8) Urine Color Urine Appearance Urine pH (4.5-8.0) Ur Specific [place] (1.000-1.035) Urine Protein (Negative) Urine Glucose (UA) (Negative) g/dL Urine Ketones (NEGATIVE) Urine Occult Blood (Negative) Urine Nitrate (Negative) Urine Bilirubin (NEGATIVE) Urine Urobilinogen (0.2) E.U./dL Ur Leukocyte Esterase (NEGATIVE) Urine RBC (0-5/HPF) Urine WBC (0-5/HPF) Ur Squamous Epith Cells (0-5/HPF) Ur Transition Epith Cell Ur Renal Epithelial Cell Calcium Oxalate Crystal Uric Acid Crystals Triple Phos Crystals Other Crystals Amorphous Sediment Urine Bacteria (None) Hyaline Casts Granular Casts RBC Casts WBC Casts Other Casts Urine Mucus (Negative) Urine Trichomonas Urine Yeast Urine Sperm Ur Culture Indicated? Micro UA Comment U Opiates 300ng/mL cut (Negative) Ur Oxycodone Screen (Negative) Urine Methadone Screen (Negative) Ur Barbiturates Screen (Negative) U Tricyclic Antidepress (Negative) Ur Phencyclidine Scrn (Negative) Ur Amphetamines Screen (Negative) U Methamphetamines Scrn (Negative) Ur MDMA Scrn (Ecstasy) (Negative) U Benzodiazepines Scrn (Negative) Urine Cocaine Screen (Negative) U Marijuana (THC) Screen (Negative) Ethyl Alcohol < 10 ( - 10) mg/dL 01/05/23 01/05/23 01/05/23 Range/Units 14:22 14:22 14:22 WBC (4.5-11.0) X10^3/uL RBC (4.5-5.9) X10^6/uL Hgb (13.5-17.5) g/dL Hct (41-53) % MCV (80-100) fL MCH (26-34) PG MCHC (30-36) % RDW (11.6-14.8) % Plt Count (150-400) X10^3/uL Neut % (Auto) (50-75) % Lymph % (Auto) (25-40) % [place] % (Auto) (3-14) % Eos % (Auto) (2-4) % Baso % (Auto) (0-2) % Neut # (Auto) (5685-5457) /uL Lymph # (Auto) (9599-7736) /uL [place] # (Auto) (0-900) /uL Eos # (Auto) (0-450) /uL Baso # (Auto) (0-100) /uL Sodium (137-145) mmol/L Potassium (3.4-5.1) mmol/L Chloride (98-107) mmol/L Carbon Dioxide (22-32) mmol/L BUN (9-20) mg/dL Creatinine (0.66-1.25) mg/dL Estimated GFR (>60) mL/min BUN/Creatinine Ratio (6-22) Glucose (80-110) mg/dL Calcium (8.4-10.2) mg/dL Total Bilirubin (0.2-1.3) mg/dL AST (17-59) IU/L ALT (<50) IU/L Alkaline Phosphatase (38-126) U/L Total Protein (6.3-8.2) g/dL Albumin (3.5-5.0) g/dL Globulin (1.7-4.1) g/dL Albumin/Globulin Ratio (1.0-2.8) Urine Color [place] Urine Appearance Clear Urine pH 5.0 (4.5-8.0) Ur Specific [place] 1.020 (1.000-1.035) Urine Protein Trace H (Negative) Urine Glucose (UA) Negative (Negative) g/dL Urine Ketones Trace H (NEGATIVE) Urine Occult Blood Negative (Negative) Urine Nitrate Negative (Negative) Urine Bilirubin Negative (NEGATIVE) Urine Urobilinogen 1.0 (0.2) E.U./dL Ur Leukocyte Esterase Negative (NEGATIVE) Urine RBC None seen Cancelled (0-5/HPF) Urine WBC None seen Cancelled (0-5/HPF) Ur Squamous Epith Cells None seen Cancelled (0-5/HPF) Ur Transition Epith Cell Cancelled Ur Renal Epithelial Cell Cancelled Calcium Oxalate Crystal Cancelled Uric Acid Crystals Cancelled Triple Phos Crystals Cancelled Other Crystals Cancelled Amorphous Sediment Cancelled Urine Bacteria None seen Cancelled (None) Hyaline Casts Cancelled Granular Casts Cancelled RBC Casts Cancelled WBC Casts Cancelled Other Casts Cancelled Urine Mucus 2+ H Cancelled (Negative) Urine Trichomonas Cancelled Urine Yeast Cancelled Urine Sperm Cancelled Ur Culture Indicated? Cult not indicated Cancelled Micro UA Comment Cancelled U Opiates 300ng/mL cut Negative (Negative) Ur Oxycodone Screen Negative (Negative) Urine Methadone Screen Negative (Negative) Ur Barbiturates Screen Negative (Negative) U Tricyclic Antidepress Negative (Negative) Ur Phencyclidine Scrn Negative (Negative) Ur Amphetamines Screen Negative (Negative) U Methamphetamines Scrn Negative (Negative) Ur MDMA Scrn (Ecstasy) Negative (Negative) U Benzodiazepines Scrn Negative (Negative) Urine Cocaine Screen Negative (Negative) U Marijuana (THC) Screen Negative (Negative) Ethyl Alcohol ( - 10) mg/dL Urine Dip Bedside Urine Glucose Negative Bedside Urine Bilirubin - Negative Bedside Urine Ketone +/- 5 Urine Specific [place] 1.020 Bedside Urine Occult Blood - Negative Bedside Urine pH 6.0 Bedside Urine Protein - Negative Bedside Urine Urobilinogen - Negative Bedside Urine Nitrite - Negative Bedside Urine Leukocytes +/- [address] scan - head: Radiologist's Impression: [address] [address] [address] Scan Report Signed Patient: Carlos Joseph MR#: [id number] : 1945 Acct:[id number] Age/Sex: 77 / M Date of Service: 01/05/23 Loc: ED Accession Number: [id number] ?? Procedure: CT head/brain wo con Ordering Provider: Eusebio Wilks MD PROCEDURE:? CT HEAD/BRAIN WO CON ? INDICATIONS:? fall, confusion ? TECHNIQUE:? Noncontrast 4.5 mm thick angled axial sections acquired from the foramen magnum to the vertex, with coronal and sagittal reformats.? For radiation dose reduction, the following was used:? automated exposure control, adjustment of mA and/or kV according to patient size.? ? COMPARISON:? [facility], CT, CT HEAD/BRAIN WO CON, 12/06/2020, 19:53.? [facility], CT, CT FACIAL BONES WO CON, 01/05/2023, 12:58.? [facility], CT, CT HEAD/BRAIN WO CON, 02/04/2022, 15:21. ? FINDINGS:? Image quality:? Excellent.? ? CSF spaces:? Basal cisterns are patent.? No extra-axial fluid collections.? The ventricles are symmetric in size and shape.? ? Brain:? No intracranial bleeds or masses.? There is cerebral volume loss for age, with resultant ventricular and sulcal prominence.? There are periventricular and deep white matter chronic small vessel ischemic changes.? There is intracranial internal carotid artery atherosclerosis.? ? Skull and face:? Calvarium and visualized facial bones appear intact, without suspicious lesions.? Areas of scattered mild scalp thickening are seen, which are similar t o the prior CT. ? Sinuses:? [id number] mucosal thickening can be seen within the right maxillary sinus.? Visualized sinuses and mastoids are otherwise relatively clear.? IMPRESSION:? No acute intracranial hemorrhage is seen.? ? No acute intracranial process is seen.? ? ? Dictated by: Armen Garduno M.D. on 01/05/2023 at 12:12 ? ? Approved by: Armen Garduno M.D. on 01/05/2023 at 12:13 ? CT facial bone: Radiologist's Impression: [place] [address] CT Scan Report Signed Patient: Carlos Joseph MR#: [id number] : 1945 Acct:[id number] Age/Sex: 77 / M Date of Service: 01/05/23 Loc: ED Accession Number: [id number] ?? Procedure: CT facial bones wo con Ordering Provider: Eusebio Wilks MD PROCEDURE:? CT FACIAL BONES WO CON ? INDICATIONS:? fall, confusion ? TECHNIQUE:? Noncontrast 2.5 mm thick axial images acquired from the mandible through the frontal sinuses, with coronal and sagittal reformatting.? For radiation dose reduction, the following was used:? automated exposure control, adjustment of mA and/or kV according to patient size.? ? COMPARISON:? [facility], CT, CT HEAD/BRAIN WO CON, 01/05/2023, 12:58. ? FINDINGS:? Image quality:? Excellent.? ? Bones and teeth:? Orbital baker are intact.? Sinus baker show no fracture or deformity.? Nasal bones and septum are intact.? Visualized portions of the mandible demonstrate no fractures or subluxation.? Zygomatic arches are intact.? Pterygoid plates are intact.? Visualized portions of the skull base and auditory canals are intact.? ? Sinuses:? Ggbr-el-elxalyef mucosal thickening can be seen within the right maxillary sinus.? Minimal mucosal thickening can be seen within the ethmoid air cells.? The paranasal sinuses otherwise appear relatively clear.? Small bilateral todd bullosa can be seen. ? Soft tissues:? No edema, masses, or fluid collections.? No enlarged lymph nodes.? No soft tissue lacerations or debris.? ? Vascular:? Visualized vascular structures appear normal in the absence of contrast.? Bony vascular foramina and canals are intact.? ? ? IMPRESSION:? Negative for displaced facial bone fracture.? ? Focal right maxillary sinus disease noted. ? ? Dictated by: Armen Garduno M.D. on 01/05/2023 at 12:15 ? ? Approved by: Armen Garduno M.D. on 01/05/2023 at 12:16 ? MDM Narrative Medical decision making narrative: Patient brought in by ambulance from home. Here for altered mental status/visual and auditory hallucinations. Patient denies SI or HI. Patient denies any drugs or alcohol. I spoke with patient's friend, Armani Nassar, she had called him today and EMS answer the phone. Evidently he had called EMS because he was thinking he was doing CPR on his friend Benita Nassar. She states he does not do drugs or drink alcohol She also states he has been seeing people on his property that are not there. He is had frequent falls as well. As far as she knows no chest pain headache nausea vomiting urinary complaints. Patient is a poor historian. He is awake alert to self and date of . He does not recall any chest pain abdominal pain or headache. I spoke with Armani by phone. She is concerned about his safety and falling. Neighbors have express his behavior is concerning as well. They do not feel he is well enough are safe enough to go home After history and exam CT head CBC CMP EKG tox screen urinalysis social work consult PT consult MDM CC: Altered mental status Complicating co-morbidities: Parkinson's/TIA/dementia Data collected from: Patient and friend Medical records reviewed: No recent visit for this complaint Differential considered: Includes but not limited to stroke dementia drug abuse dehydration UTI Exam documented above, pertinent findings include: Has ongoing psychosis Lab Test results independently reviewed as above. Pertinent findings: CBC 9.5 hemoglobin 12.5 sodium 140 potassium 3.7 BUN 27 creatinine 1.02 GFR greater than 60 urinalysis trace ketones, negative leukocyte esterase negative nitrate drug screen negative Independently reviewed EKG normal sinus rhythm right bundle-branch block rate [address] elevation or depression Imaging studies independently reviewed: CT head facial CT no acute finding Consultations: Spoke with Tessa director of social work, she will evaluate patient. Treatments: None indicated at this time Re-evaluations: Discussion: Diagnosis: Acute psychosis 6:00 p.m.. Efe: Sign out to Dr Velasco social work seen patient for disposition. PT eval needed tomorrow. No medical criteria for admission at this time <Karina Velasco, - Last Filed: 01/05/23 20:07> Lab Data Labs: Lab Results 01/05/23 01/05/23 01/05/23 Range/Units 13:31 13:31 13:31 WBC 9.5 (4.5-11.0) X10^3/uL RBC 3.91 L (4.5-5.9) X10^6/uL Hgb 12.5 L (13.5-17.5) g/dL Hct 36.2 L (41-53) % MCV 92.8 (80-100) fL MCH 31.9 (26-34) PG MCHC 34.4 (30-36) % RDW 13.8 (11.6-14.8) % Plt Count 304 (150-400) X10^3/uL Neut % (Auto) 86.2 H (50-75) % Lymph % (Auto) 7.0 L (25-40) % [place] % (Auto) 6.1 (3-14) % Eos % (Auto) 0.3 L (2-4) % Baso % (Auto) 0.4 (0-2) % Neut # (Auto) 8200 H (1544-6841) /uL Lymph # (Auto) 700 L (8323-2571) /uL [place] # (Auto) 600 (0-900) /uL Eos # (Auto) 0 (0-450) /uL Baso # (Auto) 0 (0-100) /uL Sodium 140 (137-145) mmol/L Potassium 3.7 (3.4-5.1) mmol/L Chloride 103 (98-107) mmol/L Carbon Dioxide 31 (22-32) mmol/L BUN 27 H (9-20) mg/dL Creatinine 1.02 (0.66-1.25) mg/dL Estimated GFR > 60 (>60) mL/min BUN/Creatinine Ratio 26.5 H (6-22) Glucose 100 (80-110) mg/dL Calcium 9.1 (8.4-10.2) mg/dL Total Bilirubin 0.9 (0.2-1.3) mg/dL AST 37 (17-59) IU/L ALT 20 (<50) IU/L Alkaline Phosphatase 102 (38-126) U/L Total Protein 7.2 (6.3-8.2) g/dL Albumin 4.3 (3.5-5.0) g/dL Globulin 2.9 (1.7-4.1) g/dL Albumin/Globulin Ratio 1.5 (1.0-2.8) Urine Color Urine Appearance Urine pH (4.5-8.0) Ur Specific [place] (1.000-1.035) Urine Protein (Negative) Urine Glucose (UA) (Negative) g/dL Urine Ketones (NEGATIVE) Urine Occult Blood (Negative) Urine Nitrate (Negative) Urine Bilirubin (NEGATIVE) Urine Urobilinogen (0.2) E.U./dL Ur Leukocyte Esterase (NEGATIVE) Urine RBC (0-5/HPF) Urine WBC (0-5/HPF) Ur Squamous Epith Cells (0-5/HPF) Ur Transition Epith Cell Ur Renal Epithelial Cell Calcium Oxalate Crystal Uric Acid Crystals Triple Phos Crystals Other Crystals Amorphous Sediment Urine Bacteria (None) Hyaline Casts Granular Casts RBC Casts WBC Casts Other Casts Urine Mucus (Negative) Urine Trichomonas Urine Yeast Urine Sperm Ur Culture Indicated? Micro UA Comment U Opiates 300ng/mL cut (Negative) Ur Oxycodone Screen (Negative) Urine Methadone Screen (Negative) Ur Barbiturates Screen (Negative) U Tricyclic Antidepress (Negative) Ur Phencyclidine Scrn (Negative) Ur Amphetamines Screen (Negative) U Methamphetamines Scrn (Negative) Ur MDMA Scrn (Ecstasy) (Negative) U Benzodiazepines Scrn (Negative) Urine Cocaine Screen (Negative) U Marijuana (THC) Screen (Negative) Ethyl Alcohol < 10 ( - 10) mg/dL 01/05/23 01/05/23 01/05/23 Range/Units 14:22 14:22 14:22 WBC (4.5-11.0) X10^3/uL RBC (4.5-5.9) X10^6/uL Hgb (13.5-17.5) g/dL Hct (41-53) % MCV (80-100) fL MCH (26-34) PG MCHC (30-36) % RDW (11.6-14.8) % Plt Count (150-400) X10^3/uL Neut % (Auto) (50-75) % Lymph % (Auto) (25-40) % [place] % (Auto) (3-14) % Eos % (Auto) (2-4) % Baso % (Auto) (0-2) % Neut # (Auto) (9163-5013) /uL Lymph # (Auto) (6928-7776) /uL [place] # (Auto) (0-900) /uL Eos # (Auto) (0-450) /uL Baso # (Auto) (0-100) /uL Sodium (137-145) mmol/L Potassium (3.4-5.1) mmol/L Chloride (98-107) mmol/L Carbon Dioxide (22-32) mmol/L BUN (9-20) mg/dL Creatinine (0.66-1.25) mg/dL Estimated GFR (>60) mL/min BUN/Creatinine Ratio (6-22) Glucose (80-110) mg/dL Calcium (8.4-10.2) mg/dL Total Bilirubin (0.2-1.3) mg/dL AST (17-59) IU/L ALT (<50) IU/L Alkaline Phosphatase (38-126) U/L Total Protein (6.3-8.2) g/dL Albumin (3.5-5.0) g/dL Globulin (1.7-4.1) g/dL Albumin/Globulin Ratio (1.0-2.8) Urine Color [place] Urine Appearance Clear Urine pH 5.0 (4.5-8.0) Ur Specific [place] 1.020 (1.000-1.035) Urine Protein Trace H (Negative) Urine Glucose (UA) Negative (Negative) g/dL Urine Ketones Trace H (NEGATIVE) Urine Occult Blood Negative (Negative) Urine Nitrate Negative (Negative) Urine Bilirubin Negative (NEGATIVE) Urine Urobilinogen 1.0 (0.2) E.U./dL Ur Leukocyte Esterase Negative (NEGATIVE) Urine RBC None seen Cancelled (0-5/HPF) Urine WBC None seen Cancelled (0-5/HPF) Ur Squamous Epith Cells None seen Cancelled (0-5/HPF) Ur Transition Epith Cell Cancelled Ur Renal Epithelial Cell Cancelled Calcium Oxalate Crystal Cancelled Uric Acid Crystals Cancelled Triple Phos Crystals Cancelled Other Crystals Cancelled Amorphous Sediment Cancelled Urine Bacteria None seen Cancelled (None) Hyaline Casts Cancelled Granular Casts Cancelled RBC Casts Cancelled WBC Casts Cancelled Other Casts Cancelled Urine Mucus 2+ H Cancelled (Negative) Urine Trichomonas Cancelled Urine Yeast Cancelled Urine Sperm Cancelled Ur Culture Indicated? Cult not indicated Cancelled Micro UA Comment Cancelled U Opiates 300ng/mL cut Negative (Negative) Ur Oxycodone Screen Negative (Negative) Urine Methadone Screen Negative (Negative) Ur Barbiturates Screen Negative (Negative) U Tricyclic Antidepress Negative (Negative) Ur Phencyclidine Scrn Negative (Negative) Ur Amphetamines Screen Negative (Negative) U Methamphetamines Scrn Negative (Negative) Ur MDMA Scrn (Ecstasy) Negative (Negative) U Benzodiazepines Scrn Negative (Negative) Urine Cocaine Screen Negative (Negative) U Marijuana (THC) Screen Negative (Negative) Ethyl Alcohol ( - 10) mg/dL Urine Dip Bedside Urine Glucose Negative Bedside Urine Bilirubin - Negative Bedside Urine Ketone +/- 5 Urine Specific [place] 1.020 Bedside Urine Occult Blood - Negative Bedside Urine pH 6.0 Bedside Urine Protein - Negative Bedside Urine Urobilinogen - Negative Bedside Urine Nitrite - Negative Bedside Urine Leukocytes +/- 15 Esterase MDM Narrative Medical decision making narrative: Patient brought in by ambulance from home. Here for altered mental status/visual and auditory hallucinations. Patient denies SI or HI. Patient denies any drugs or alcohol. I spoke with patient's friend, Armani Nassar, she had called him today and EMS answer the phone. Evidently he had called EMS because he was thinking he was doing CPR on his friend Benita Nassar. She states he does not do drugs or drink alcohol She also states he has been seeing people on his property that are not there. He is had frequent falls as well. As far as she knows no chest pain headache nausea vomiting urinary complaints. Patient is a poor historian. He is awake alert to self and date of . He does not recall any chest pain abdominal pain or headache. I spoke with Armani by phone. She is concerned about his safety and falling. Neighbors have express his behavior is concerning as well. They do not feel he is well enough are safe enough to go home After history and exam CT head CBC CMP EKG tox screen urinalysis social work consult PT consult [facility] CC: Altered mental status Complicating co-morbidities: Parkinson's/TIA/dementia Data collected from: Patient and friend Medical records reviewed: No recent visit for this complaint Differential considered: Includes but not limited to stroke dementia drug abuse dehydration UTI Exam documented above, pertinent findings include: Has ongoing psychosis Lab Test results independently reviewed as above. Pertinent findings: CBC 9.5 hemoglobin 12.5 sodium 140 potassium 3.7 BUN 27 creatinine 1.02 GFR greater than 60 urinalysis trace ketones, negative leukocyte esterase negative nitrate drug screen negative Independently reviewed EKG normal sinus rhythm right bundle-branch block rate [address] elevation or depression Imaging studies independently reviewed: CT head facial CT no acute finding Consultations: Spoke with Tessa director of social work, she will evaluate patient. Treatments: None indicated at this time Re-evaluations: Discussion: Diagnosis: Acute psychosis 6:00 p.m.. Efe: Sign out to Dr Velasco, social work seen patient for disposition. PT eval needed tomorrow. No medical criteria for admission at this time Dr. Velasco-patient signed out to me by Dr. Velasco. Patient confused thought he did CPR on Benita which he did not. He did get in contact with a friend name Don Ochoa is in the ED states that he does have some memory problems. Don is happy to take him home and watch him and Armani should be back home tomorrow. At this time there is no medical reason for his hallucinations or confusion. He is ambulatory in the ED. Discharge Plan Departure Patient Disposition: Home Clinical Impression: Psychosis Instructions: Dementia Activity Restrictions/Additional Instructions: *You have been diagnosed with dementia *What to do: Please go home and stay with Don *Continue to take medications as directed *Follow up with your primary care provider in 2-3 days or call [phone] *Return to ER if you should have any new, worsening or concerning symptoms Prescriptions: No Action thyroid (pork) [[place] Thyroid] 15 mg tablet 60 mg PO DAILY rasagiline [Azilect] 1 mg tablet 1 mg PO DAILY clonazepam 1 mg tablet 1 mg PO DAILY Rx Instructions: Managed by Neurologist. pramipexole 0.125 mg tablet 0.125 mg PO BID Qty: 180 1RF meloxicam 15 mg tablet 15 mg PO DAILY PRN (Reason: Low back pain) Qty: 60 2RF pramipexole 0.25 mg tablet See Rx Instructions .ROUTE .COMPLEX Qty: 90 0RF Dose Instruction: TAKE 1 TABLET(0.25 MG) BY MOUTH AT BEDTIME Rx Instructions: TAKE 1 TABLET(0.25 MG) BY MOUTH AT BEDTIME bupropion HCl 75 mg tablet See Rx Instructions .ROUTE .COMPLEX Qty: 180 0RF Dose Instruction: TAKE 1 TABLET BY MOUTH DAILY Rx Instructions: TAKE 1 TABLET BY MOUTH DAILY carbidopa-levodopa 25-250 mg tablet 1 tab PO TID Qty: 270 1RF carbidopa-levodopa 10-100 mg tablet 1 tab PO BID Qty: 180 1RF donepezil 5 mg tablet 5 mg PO BEDTIME Qty: 90 1RF famotidine 20 mg tablet 20 mg PO DAILY Qty: 90 1RF entacapone 200 mg tablet 200 mg PO DAILY Qty: 90 1RF naloxone 4 mg/actuation spray,non-aerosol 1 spray intranasal Q3M PRN Rx Instructions: spray 1 dose into ONE nostril; alternate nostrils w each dose until help arrives hydrocodone-acetaminophen 7.5-325 mg tablet 1 tab PO BID PRN (Reason: pain) Qty: 30 0RF Rx Instructions: Supplement with Tylenol up to 3000mg per day Exempt Referrals: Jose Zamudio MD [Primary Care Provider] - Stand Alone Forms: Patient Portal/API
[2023-01-05 15:48] VITALS: BP 154/75; PULSE 67; O2SAT 95
--- NOTE | 2023-01-05 17:48 | PC.NURSE ---
Pt still confused. Pt is answering questions appropriately and following commands but is making statements that do not pertain to his current situation such as How much do I owe you for the meal? and I saw her walking the dog. It seems as though he is seeing things that aren't there. Pt is calm and cooperative.
--- NOTE | 2023-01-05 18:22 | CM.SWNOTE ---
Addendum entered by Tessa Solis 01/05/23 19:31: [employer]GB[employer] also encourages Benita to ensure patient has constant support at home whether that be a caregiver, home health or moving into a facility where there is constant support. [facility] to call Dr. Conway's office tomorrow AM regarding patient for potential HH referral. NORY Goldman Addendum entered by Tessa Solis 01/05/23 19:21: [employer] Note [employer] speaks with Benita when she calls patient via ED phone. TUGB[employer] endorses concerns of patient returning to home alone and there is no one that can pick patient up at this time, Benita indicates understanding. Benita states she can arrive tomorrow to pick patient up and stay with him. Patient requests T[employer]GB[employer] to call patient's friend Hayley Fine (Ph. # [phone]), [employer] calls and leaves . After being on the phone, patient states he spoke with his friend Don and states that Don can pick him up. If Don does come to pick patient up, then ED provider and RN will assess Don and inquire about patient staying with Don to ensure safety. [employer] to provide senior resource guide to patient, patient to f/u with PCP on 01/07/23. NORY Goldman Original Note: ED [employer] Assessment Note Patient is 77 y/o male who presents to ED via EMS due to concern for hallucinations and recent GLFs. It is reported that patient called 911 due to concern for giving CPR on his girlfriend and concern for someone stealing from him in his barn. When EMS arrived at patient's home it was identified that no one was in patient's home. Patient has hx of Parkinson's Disease, Dementia in Parkinson's disease, TIA, hypothyroidism, GLFs and fractures. Patient fell from his barn roof last year which resulted in Liver laceration, grade I, Pneumothorax, Multiple fractures of rib involving four or more ribs, Closed fracture of transverse process of lumbar vertebra and transfer to [facility] for higher level of care. Patient's PCP is Dr. Zamudio, patient has upcoming PCP appt regarding concern for Parkinson's and falls. Appt is scheduled for 01/07/23. Patient has [facility] Medicare insurance. TUGB[employer] P[employer]OT meets with patient, patient presents as A/Ox3, but confused at times, patient is slow to respond to questions, circumstantial in responses. Patient presents as lucid at times and acknowledges hallucinations as a side effect of his Parkinson's Patient endorses he saw someone walking around his property and thought they were stealing from his barn, patient endorses he confronted this person directly. Patient later states that he called 911 and he is not sure why and they confirm that no one was at his home. Patient informed ED provider and RN that he was performing CPR on his girlfriend, jasperiensusan calls patient during this and it is determined that jasperiensusan was not at his home and was in [place]. It is reported that patient resides at home alone in [place] and jasperiensusan Joy visits patient for a week at a time every other week, it is reported that patient's neighbor Silvia checks on him every day. Patient endorses independence with ADLs, states he drives and does a lot of work around the house and property. Patient endorses he takes his medications as prescribed. Patient endorses he uses a walking stick and wears knee pads. Patient endorses he feels safe at home. Patient endorses he believes his neighbor could pick him up upon d/c. Patient endorses concern for f/u with PCP and endorses concern for needed Neurology referral. Patient gives consent for [employer] to call girlfriend and neighbor. [employer] calls girliensusan Nassar (Ph. # [phone]) Benita reports that she was at patient's house a few days ago but left his home Tuesday Morning. Benita states she has known patient for 30 years and endorses concern for his increase in falls and confusion. Benita states that she stays at his home for a week at a time and returns home to [place]. Benita states that she set up an alarm on patient's phone to remind him to take his medications. Benita reports that patient's neighbor Silvia checks on him regularly. Benita states she plans to visit and stay with patient this Tuesday or Tuesday and will stay for the week. [employer]OT calls patient's neighbor Silvia (Ph. # [phone]) Silvia endorses that she has noticed patient become extremely confused in the last few months and it has become increasingly worse in the last few weeks. She reports concern for patient living alone but acknowledges that Benita visits him regularly for a week at time. Silvia reports that Benita assists patient with cleaning and bills. Silvia endorses concern for patient's falls and visual hallucinations. Silvia endorses concern for patient's living condition and endorses that patient is a hoarder. Silvia states that patient's best friend is Thad Elaine and he attempted to help set up patient with a will and POA a few years ago but it was not notarized and it is not an official legal document. Silvia reports concern that patient will go in and out of lucidity and can speak clearly but patient is in denial regarding his confusion. Silvia reports that all neighbors are concerned as she has found him fallen on the ground, and in his fish pond. Silvia reports she has saw patient try to use a tv remote to call 911. Silvia endorses that patient passed his drive test recently but has been seen driving on the wrong side of the freeway. T[employer] P[employer]OT asks if APS has been contacted before, Silvia states she does not know. TUGB[employer] P[employer]OT submits APS referral: Online Report Confirmation Number: [id number] due to concern for self neglect. At this time ED provider does not feel that patient is safe to d/c to home due to increase in confusion & hallucinations as patient resides alone. ED provider orders PT consult for tomorrow AM. Patient to board in ED this evening, when patient is informed about patient presents as disgruntled and states that there are people that could pick him up. Patient's girlfriend Benita calls patient and appears to be trying to find someone to stay with patient tonight. T[employer]OT to attempt to speak with Bneita afterwards. Patient requests TUGB[employer] to call patient's friend Hayley Fine (Ph. # [phone]) [employer] leaves requesting return call. Plan: PT eval, potential referral for HH services, discuss appropriate level of care with patient and family/friends. If patient is to d/c, ensure someone will be staying with patient. Tessa Solis, PAYROLL ADMINISTRATOR
--- NOTE | 2023-01-05 18:31 | PC.NURSE ---
Patient pacing in [facility]. Patient requesting to go home. I don't know why your holding me prisoner, I made my appointment for tuesday why can't I got home Reassured the patient Dr Wilks would come speak to him shortly.
--- NOTE | 2023-01-05 18:35 | PC.NURSE ---
Patient persistent on going home. States he has two other people he could call on to pick him up.
[2023-01-05 18:40] VITALS: BP 128/66; PULSE 61; RESP 16; O2SAT 97
[2023-01-05 18:44] LABS: Ethanol (ETOH) < 10 mg/dL
--- NOTE | 2023-01-05 18:50 | PC.NURSE ---
Dr Wilks at bedside to update patient
[2023-01-05 20:09] VITALS: BP 130/59; PULSE 73; O2SAT 97
== END 2023-01-05 20:08 | disposition home or self-care (01) ==
PROVIDERS: Emergency Medicine; Emergency Provider Emergency Medicine; PCP Pediatrics
DX: F29 Unspecified psychosis not due to a substance or known physiological condition (principal); S09.90XA Unspecified injury of head, initial encounter; W19.XXXA Unspecified fall, initial encounter; R41.0 Disorientation, unspecified
CPT/HCPCS: 36415; 70450; 70486; 80053; 80305; 80320; 81001; 81003; 85025; 93005; 93010; 99284

== ENCOUNTER → 2023-01-19 11:48 | Outpatient (CLI) | payer MEDICARE, SELFPAY ==
[2020-12-06 23:46] VITALS: BMI 24.3
--- NOTE | 2023-01-19 11:50 | DI.MRI.S_ITS ---
PROCEDURE: MR HEAD/BRAIN WO/W CON INDICATIONS: Evaluate anatomy in patient with Parkinson's and psychosis TECHNIQUE: Noncontrast axial T1 spin echo, axial T2 fast spin echo, sagittal and axial FLAIR, coronal T2 fast spin echo, axial gradient echo, axial diffusion and ADC through the brain. After the administration of contrast, axial and coronal and sagittal T1 spin echo with fat saturation through the brain. COMPARISON: [facility], MR, MR STROKE, 12/07/2020, 9:31. [facility], MR, BRAIN WITHOUT CONTRAST, 08/28/2014, 12:33. [facility], CT, CT HEAD/BRAIN WO CON, 01/05/2023, 12:58. FINDINGS: Image quality: Excellent. CSF spaces: Basal cisterns are patent. No extra-axial fluid collections. Ventricles are normal in size and shape. Brain: No midline shift. No intracranial bleeds or masses. No abnormal intracranial enhancement. There is cerebral volume loss for age. There is periventricular white matter chronic small vessel ischemic change. The brainstem appears normal. Diffusion-weighted images demonstrate no acute ischemic insults. No chronic ischemic insults. Normal intravascular flow voids are present. Skull and face: Calvarial marrow is normal in signal. Orbits appear normal. Sinuses: There is a right maxillary sinus mucous retention cyst. Focal altf-[id number]-[id number] right maxillary sinus mucosal thickening is seen. Minimal to mild mucosal thickening is seen elsewhere within the paranasal sinuses. No abnormal fluid is seen within the mastoid air cells. IMPRESSION: Brain MRI within normal limits for age. No masses or abnormal enhancement can be seen. No prior territorial infarct can be seen. No findings of acute or subacute infarction can be seen. Dictated by: Armen Garduno M.D. on 01/19/2023 at 13:16 Approved by: Armen Garduno M.D. on 01/19/2023 at 13:25
== END ==
PROVIDERS: PCP Pediatrics; Referring Provider Pediatrics; Visit Provider Pediatrics
DX: F29 Unspecified psychosis not due to a substance or known physiological condition (principal); J32.0 Chronic maxillary sinusitis; E03.9 Hypothyroidism, unspecified; G20 Parkinson's disease; R41.0 Disorientation, unspecified; J34.1 Cyst and mucocele of nose and nasal sinus
CPT/HCPCS: 70553; A9579

== ENCOUNTER 2023-03-10 19:39 | Emergency (ER) | payer MEDICARE, SELFPAY ==
[2020-12-06 23:46] VITALS: BMI 24.3
[2023-03-10 19:55] VITALS: BMI 22.4
--- NOTE | 2023-03-10 20:03 | PC.NURSE ---
Benita Nassar, girlfriend, Silvia Jade, neighbor,
[2023-03-10 20:05] VITALS: BP 167/79; PULSE 71; RESP 16; TEMP 37.1; O2SAT 97
--- NOTE | 2023-03-10 20:06 | DI.CT.S_ITS ---
PROCEDURE: CT HEAD/BRAIN WO CON INDICATIONS: AMS TECHNIQUE: Noncontrast 4.5 mm thick angled axial sections acquired from the foramen magnum to the vertex, with coronal and sagittal reformats. For radiation dose reduction, the following was used: automated exposure control, adjustment of mA and/or kV according to patient size. COMPARISON: [facility], CT, CT HEAD/BRAIN WO CON, 01/05/2023, 12:58. FINDINGS: Image quality: Excellent. CSF spaces: Basal cisterns are patent. No extra-axial fluid collections. The ventricles are symmetric in size and shape. Brain: No intracranial bleeds or masses. There is cerebral volume loss for age, with resultant ventricular and sulcal prominence. There are periventricular and deep white matter chronic small vessel ischemic changes. There is intracranial internal carotid artery atherosclerosis. Skull and face: Calvarium and visualized facial bones appear intact, without suspicious lesions. Sinuses: Retention cyst versus mucocele in right maxillary sinus is seen. Bilateral mastoids are well aerated. IMPRESSION: 1. No acute intracranial abnormalities. 2. No significant changes from previous study. Dictated by: Eliel Park M.D. on 03/10/2023 at 20:37 Approved by: Eliel Park M.D. on 03/10/2023 at 20:38
[2023-03-10 20:20] LABS: Add Manual Diff / Slide Review NO; Basophils Absolute Auto 100 /uL (0-100); Basophils Percent Auto 0.8 % (0-2); Eosinophils Absolute Auto 100 /uL (0-450); Eosinophils Percent Auto 0.9 % (2-4); Hematocrit 39.8 % (41-53); Hemoglobin 13.6 g/dL (13.5-17.5); Lymphocytes Absolute Auto 800 /uL (1100-4500); Lymphocytes Percent Auto 8.2 % (25-40); Mean Corpuscular HGB Conc 34.1 % (30-36); Mean Corpuscular Hemoglobin 31.2 PG (26-34); Mean Corpuscular Volume 91.4 fL (80-100); Monocytes Absolute Auto 800 /uL (0-900); Monocytes Percent Auto 7.9 % (3-14); Neutrophils Absolute Auto 8400 /uL (1500-7000); Neutrophils Percent Auto 82.2 % (50-75); Platelet Count 320 X10^3/uL (150-400); Red Blood Cell Count 4.36 X10^6/uL (4.5-5.9); Red Cell Distribution Width 14.3 % (11.6-14.8); White Blood Cell Count 10.2 X10^3/uL (4.5-11.0)
[2023-03-10 20:25] LABS: Alanine Aminotransferase 16 IU/L (<50); Albumin 4.5 g/dL (3.5-5.0); Albumin Globulin Ratio 1.5 (1.0-2.8); Alkaline Phosphatase 96 U/L (38-126); Aspartate Aminotransferase 64 IU/L (17-59); BUN Creatinine Ratio 26.3 (6-22); Bilirubin Total 0.8 mg/dL (0.2-1.3); Blood Urea Nitrogen 25 mg/dL (9-20); Calcium 9.7 mg/dL (8.4-10.2); Carbon Dioxide 27 mmol/L (22-32); Chloride 105 mmol/L (98-107); Estimated Glomerular Filt Rate > 60 mL/min (>60); Ethanol (ETOH) < 10 mg/dL; Glucose 84 mg/dL (80-110); HEMOLYSIS 22 (0-50); Lipase 108 U/L (23-300); Magnesium 2.5 mg/dL (1.6-2.3); Sodium 140 mmol/L (137-145); Total Protein 7.5 g/dL (6.3-8.2)
[2023-03-10 20:55] LABS: Thyroid Stimulating Hormone 0.537 uIU/mL (0.47-4.68)
[2023-03-10 21:25] LABS: Appearance Urine UA CLEAR; Bilirubin Urine UA NEGATIVE (NEGATIVE); Color Urine UA YELLOW; Glucose Urine UA NEGATIVE (Negative); Ketones Urine UA 1+ (NEGATIVE); Leukocyte Esterase Urine UA NEGATIVE (NEGATIVE); Nitrite Urine UA NEGATIVE (Negative); Occult Blood Urine UA NEGATIVE (Negative); Protein Urine UA NEGATIVE (Negative); Urobilinogen Urine UA 0.2 E.U./dL (0.2)
--- NOTE | 2023-03-10 21:31 | ED.GENADULT ---
HPI - General Adult <Samy Snyder DO - Last Filed: 03/11/23 19:21> General Chief complaint: Altered Mental Status Stated complaint: Delusional Time Seen by Provider: 03/10/23 20:03 Source: patient and EMS Mode of arrival: EMS History of Present Illness HPI narrative: Patient is a 77-year-old male who was brought to the emergency department today by EMS. Per report EMS called by the patient's neighbors when he was found wandering in the [facility]. He stated that he had lost his wallet and was out looking for his wallet. He was reported that he was talking to people who were not actually present. There were no signs of any trauma. He was disheveled. He did not have shoes on. He was walking through water at the time. Per triage report patient did not initially want to come by EMS but was voluntary. He knows that he is in the emergency department but does not quite know why he is here. He is no specific complaints. Review of medical record show that this is a very similar presentation to 1 approximately 2 months ago. According to his medical records he does have a history of Parkinson's disease and ?confusion? unsure if he is taking any of his medications. It does appear that he does live alone. Related Data Home Medications Medication Instructions Recorded Confirmed thyroid (pork) 15 mg tablet 60 mg PO DAILY 12/26/17 02/01/23 ([place] Thyroid) rasagiline 1 mg tablet (Azilect) 1 mg PO DAILY 04/19/18 02/01/23 naloxone 4 mg/actuation nasal spray 1 spray intranasal Q3M PRN 02/23/22 02/01/23 Previous Rx's Medication Instructions Recorded hydrocodone 7.5 mg-acetaminophen 1 tab PO BID PRN pain #30 tabs 05/04/22 325 mg tablet pramipexole 0.125 mg tablet 0.125 mg PO BID #180 tabs 09/22/22 meloxicam 15 mg tablet 15 mg PO DAILY PRN Low back pain 10/11/22 #60 tabs bupropion HCl 75 mg tablet See Rx Instructions .Route 11/11/22 .COMPLEX #180 tabs carbidopa 10 mg-levodopa 100 mg 1 tab PO BID wearing off or 12/02/22 tablet slowness #180 tabs carbidopa 25 mg-levodopa 250 mg 1 tab PO TID #270 tabs 12/02/22 tablet donepezil 5 mg tablet 5 mg PO BEDTIME #90 tabs 01/03/23 entacapone 200 mg tablet 200 mg PO DAILY #90 tabs 01/24/23 famotidine 20 mg tablet 20 mg PO DAILY #90 tabs 01/24/23 pramipexole 0.25 mg tablet See Rx Instructions .Route 01/28/23 .COMPLEX #90 tabs Disabled [address] permit See Rx Instructions .Route 02/01/23 .COMPLEX #1 unit mupirocin 2 % topical ointment 1 applic topical TID #50 grams 02/01/23 clonazepam 1 mg tablet 1 mg PO BEDTIME PRN insomnia #30 02/17/23 tabs Allergies Allergy/AdvReac Type Severity Reaction Status Date / Time Penicillins Allergy rash Verified 03/10/23 20:32 lactose AdvReac Gastrointestinal Verified 03/10/23 20:32 Upset Review of Systems <Samy Snyder DO - Last Filed: 03/11/23 19:21> Review of Systems ROS Unobtainable: All systems reviewed & are unremarkable except as noted in HPI and below Constitutional Constitutional: Reports system reviewed and no additional complaints, except as documented Patient History <Samy Snyder DO - Last Filed: 03/11/23 19:21> Medical History Laceration Costal margin pain Confusion Dementia in Parkinson's disease History of right bundle branch block (RBBB) History of ankle fracture Brain TIA Chicken pox (~1949) Fractures (~2014) Migraines (~1963) Sleep apnea (~2009) Tinnitus (~1969) Kidney stones (~2011) Benign prostatic hyperplasia (~2013) Esophageal ring Low testosterone (~2014) Hypothyroidism (~1979) Parkinson's disease (~2019) Surgical History History of tonsillectomy and adenoidectomy Anesthesia History of ankle surgery (~2004) History of hernia repair (1957) Family History Father Congestive heart failure Grandmother No problems noted. Grandfather Cancer Mother Respiratory failure Stroke Grandmother Alzheimer's disease Grandfather Aneurysm Family/Other Diabetes mellitus Social History household members: none Smoking Status: Never smoker alcohol intake: current Smoking Status: Never smoker alcohol intake frequency: a few times a month Substance Use Type: does not use Exam <Samy Snyder DO - Last Filed: 03/11/23 19:21> Initial Vital Signs Initial Vital Signs: Vital Signs Temperature 98.7 F 03/10/23 20:05 Pulse Rate 71 03/10/23 20:05 Respiratory Rate 16 03/10/23 20:05 Blood Pressure 167/79 H 03/10/23 20:05 Pulse Oximetry 97 03/10/23 20:05 Oxygen Delivery Method Room Air 03/10/23 20:05 Const General: cooperative, comfortable, No in distress, No anxious, No ill appearing and No intoxicated appearing HENMT Head: normal to inspection and normocephalic Resp Effort & Inspection: normal respiratory effort Auscultation: clear to auscultation bilaterally Cardio Rate: regular rate Rhythm: regular rhythm GI Inspection: normal to inspection Skin Other: Superficial abrasions over both of his knees Neuro General: patient alert, patient awake and moves all extremities Speech: speech normal Other: Patient is alert and oriented to person and place. He thinks it is 2021 1 in actuality it is 2022. He does state that he was walking through the [place] but states he was trying to find his wallet. Extrem Other: Superficial abrasions to both the anterior portions of his knees but no gross deformities in any of his other extremities. He has been ambulatory. <Charlie Aveyr DO - Last Filed: 03/12/23 06:30> Initial Vital Signs Initial Vital Signs: Vital Signs Temperature 98.7 F 03/10/23 20:05 Pulse Rate 71 03/10/23 20:05 Respiratory Rate 16 03/10/23 20:05 Blood Pressure 167/79 H 03/10/23 20:05 Pulse Oximetry 97 03/10/23 20:05 Oxygen Delivery Method Room Air 03/10/23 20:05 Scores <Samy Snyder DO - Last Filed: 03/11/23 19:21> GCS [place] coma scale eye opening: Spontaneous [place] coma scale verbal response: Orientated (To person and place) [place] coma scale motor response: Obey commands [place] coma scale total score: 15 <Charlie Avery DO - Last Filed: 03/12/23 06:30> GCS [place] coma scale total score: 15 Course <Samy Snyder DO - Last Filed: 03/11/23 19:21> Orders Ordered: Discontinued Medications Carbidopa/Levodopa (Carbidopa-Levodopa 10/100 Tablet) 1 each PO NOW ONE Stop: 03/11/23 07:57 Last Admin: 03/11/23 08:18 Dose: 1 each Documented By: KALI Entacapone (Entacapone 200 Mg Tablet) 200 mg PO NOW ONE Stop: 03/11/23 07:57 Last Admin: 03/11/23 08:17 Dose: 200 mg Documented By: KALI Pramipexole Dihydrochloride (Pramipexole 0.25 Mg Tablet) 0.125 mg PO NOW ONE Stop: 03/11/23 07:58 Last Admin: 03/11/23 08:17 Dose: 0.125 mg Documented By: KALI Thyroid (Thyroid, Pork 30 Mg Tablet) 60 mg PO NOW ONE Stop: 03/11/23 07:58 Last Admin: 03/11/23 08:18 Dose: 60 mg Documented By: KALI Vital Signs Vital signs: Vital Signs - 8 hr 03/11/23 13:06 Pulse Rate 80 Respiratory Rate 14 Blood Pressure 147/75 H Pulse Oximetry 99 Oxygen Delivery Method Room Air <Charlie Avery DO - Last Filed: 03/12/23 06:30> Orders Ordered: Discontinued Medications Carbidopa/Levodopa (Carbidopa-Levodopa 10/100 Tablet) 1 each PO NOW ONE Stop: 03/11/23 07:57 Last Admin: 03/11/23 08:18 Dose: 1 each Documented By: KALI Entacapone (Entacapone 200 Mg Tablet) 200 mg PO NOW ONE Stop: 03/11/23 07:57 Last Admin: 03/11/23 08:17 Dose: 200 mg Documented By: KALI Pramipexole Dihydrochloride (Pramipexole 0.25 Mg Tablet) 0.125 mg PO NOW ONE Stop: 03/11/23 07:58 Last Admin: 03/11/23 08:17 Dose: 0.125 mg Documented By: KALI Thyroid (Thyroid, Pork 30 Mg Tablet) 60 mg PO NOW ONE Stop: 03/11/23 07:58 Last Admin: 03/11/23 08:18 Dose: 60 mg Documented By: KALI Vital Signs Vital signs: Vital Signs - 8 hr 03/11/23 13:06 Pulse Rate 80 Respiratory Rate 14 Blood Pressure 147/75 H Pulse Oximetry 99 Oxygen Delivery Method Room Air Medical Decision Making <Samy SnyderDO - Last Filed: 03/11/23 19:21> Medical Records Medical records reviewed: Yes I reviewed the patient's medical records. Lab Data Lab results reviewed: Yes I reviewed the patient's lab results. 03/10/23 19:49 03/10/23 19:49 Labs: Lab Results 03/10/23 03/10/23 03/10/23 Range/Units 19:49 20:30 21:17 WBC 10.2 (4.5-11.0) X10^3/uL RBC 4.36 L (4.5-5.9) X10^6/uL Hgb 13.6 (13.5-17.5) g/dL Hct 39.8 L (41-53) % MCV 91.4 (80-100) fL MCH 31.2 (26-34) PG MCHC 34.1 (30-36) % RDW 14.3 (11.6-14.8) % Plt Count 320 (150-400) X10^3/uL Neut % (Auto) 82.2 H (50-75) % Lymph % (Auto) 8.2 L (25-40) % [place] % (Auto) 7.9 (3-14) % Eos % (Auto) 0.9 L (2-4) % Baso % (Auto) 0.8 (0-2) % Neut # (Auto) 8400 H (0294-6017) /uL Lymph # (Auto) 800 L (7777-1938) /uL [place] # (Auto) 800 (0-900) /uL Eos # (Auto) 100 (0-450) /uL Baso # (Auto) 100 (0-100) /uL Sodium 140 (137-145) mmol/L Potassium 4.0 (3.4-5.1) mmol/L Chloride 105 (98-107) mmol/L Carbon Dioxide 27 (22-32) mmol/L BUN 25 H (9-20) mg/dL Creatinine 0.95 (0.66-1.25) mg/dL Estimated GFR > 60 (>60) mL/min BUN/Creatinine Ratio 26.3 H (6-22) Glucose 84 (80-110) mg/dL Calcium 9.7 (8.4-10.2) mg/dL Magnesium 2.5 H (1.6-2.3) mg/dL Total Bilirubin 0.8 (0.2-1.3) mg/dL AST 64 H (17-59) IU/L ALT 16 (<50) IU/L Alkaline Phosphatase 96 (38-126) U/L Total Protein 7.5 (6.3-8.2) g/dL Albumin 4.5 (3.5-5.0) g/dL Globulin 3.0 (1.7-4.1) g/dL Albumin/Globulin Ratio 1.5 (1.0-2.8) Lipase 108 (23-300) U/L TSH 0.537 (0.47-4.68) uIU/mL Urine Color Yellow Urine Appearance Clear Urine pH 6.0 (4.5-8.0) Ur Specific [place] 1.020 (1.000-1.035) Urine Protein Negative (Negative) Urine Glucose (UA) Negative (Negative) g/dL Urine Ketones 1+ H (NEGATIVE) Urine Occult Blood Negative (Negative) Urine Nitrate Negative (Negative) Urine Bilirubin Negative (NEGATIVE) Urine Urobilinogen 0.2 (0.2) E.U./dL Ur Leukocyte Esterase Negative (NEGATIVE) Urine RBC None seen (0-5/HPF) Urine WBC 1-5/hpf (0-5/HPF) Ur Squamous Epith Cells None seen (0-5/HPF) Urine Bacteria None seen (None) Hyaline Casts 1-5/lpf (None) Urine Mucus 1+ H (Negative) Ur Culture Indicated? Cult not indicated U Opiates 300ng/mL cut Negative (Negative) Ur Oxycodone Screen Negative (Negative) Urine Methadone Screen Negative (Negative) Ur Barbiturates Screen Negative (Negative) U Tricyclic Antidepress Negative (Negative) Ur Phencyclidine Scrn Negative (Negative) Ur Amphetamines Screen Negative (Negative) U Methamphetamines Scrn Negative (Negative) Ur MDMA Scrn (Ecstasy) Negative (Negative) U Benzodiazepines Scrn Negative (Negative) Urine Cocaine Screen Negative (Negative) U Marijuana (THC) Screen Negative (Negative) Ethyl Alcohol < 10 ( - 10) mg/dL SARS-CoV-2 (PCR) Negative (Negative) Point of Care Testing Glucose POC 79 Point of care testing: Point of Care Testing Glucose POC [address] scan - head: Radiologist's Impression: PROCEDURE: CT HEAD/BRAIN WO CON INDICATIONS: AMS TECHNIQUE: Noncontrast 4.5 mm thick angled axial sections acquired from the foramen magnum to the vertex, with coronal and sagittal reformats. For radiation dose reduction, the following was used: automated exposure control, adjustment of mA and/or kV according to patient size. COMPARISON: [facility], CT, CT HEAD/BRAIN WO CON, 01/05/2023, 12:58. FINDINGS: Image quality: Excellent. CSF spaces: Basal cisterns are patent. No extra-axial fluid collections. The ventricles are symmetric in size and shape. Brain: No intracranial bleeds or masses. There is cerebral volume loss for age, with resultant ventricular and sulcal prominence. There are periventricular and deep white matter chronic small vessel ischemic changes. There is intracranial internal carotid artery atherosclerosis. Skull and face: Calvarium and visualized facial bones appear intact, without suspicious lesions. Sinuses: Retention cyst versus mucocele in right maxillary sinus is seen. Bilateral mastoids are well aerated. IMPRESSION: 1. No acute intracranial abnormalities. 2. No significant changes from previous study. ECG Data Attestation: I personally reviewed and interpreted this ECG as follows: Interpretation: Sinus rhythm Ventricular rate is 74 Right bundle-branch block QRS 1 through 6 milliseconds Normal QTC MDM Narrative Medical decision making narrative: It appears that this is a very similar presentation to 1 here in the emergency department 2 months ago. During that visit he was evaluated and subsequently discharged home. I am unsure if he is taking any of his medications. He states he lives alone. He is no specific complaints. He is oriented to person and place but does not know specifically why he is here. Patient is not suicidal/homicidal. Labs unremarkable. Head CT is unremarkable. There was no signs of any specific infection. He states that he is no family in the area. I do think the patient would benefit from a social work consultation care turned over to day provider to follow-up and disposition. <Charlie Avery, DO - Last Filed: 03/12/23 06:30> Lab Data Labs: Lab Results 03/10/23 03/10/23 03/10/23 Range/Units 19:49 20:30 21:17 WBC 10.2 (4.5-11.0) X10^3/uL RBC 4.36 L (4.5-5.9) X10^6/uL Hgb 13.6 (13.5-17.5) g/dL Hct 39.8 L (41-53) % MCV 91.4 (80-100) fL MCH 31.2 (26-34) PG MCHC 34.1 (30-36) % RDW 14.3 (11.6-14.8) % Plt Count 320 (150-400) X10^3/uL Neut % (Auto) 82.2 H (50-75) % Lymph % (Auto) 8.2 L (25-40) % [place] % (Auto) 7.9 (3-14) % Eos % (Auto) 0.9 L (2-4) % Baso % (Auto) 0.8 (0-2) % Neut # (Auto) 8400 H (4701-6462) /uL Lymph # (Auto) 800 L (5920-4804) /uL [place] # (Auto) 800 (0-900) /uL Eos # (Auto) 100 (0-450) /uL Baso # (Auto) 100 (0-100) /uL Sodium 140 (137-145) mmol/L Potassium 4.0 (3.4-5.1) mmol/L Chloride 105 (98-107) mmol/L Carbon Dioxide 27 (22-32) mmol/L BUN 25 H (9-20) mg/dL Creatinine 0.95 (0.66-1.25) mg/dL Estimated GFR > 60 (>60) mL/min BUN/Creatinine Ratio 26.3 H (6-22) Glucose 84 (80-110) mg/dL Calcium 9.7 (8.4-10.2) mg/dL Magnesium 2.5 H (1.6-2.3) mg/dL Total Bilirubin 0.8 (0.2-1.3) mg/dL AST 64 H (17-59) IU/L ALT 16 (<50) IU/L Alkaline Phosphatase 96 (38-126) U/L Total Protein 7.5 (6.3-8.2) g/dL Albumin 4.5 (3.5-5.0) g/dL Globulin 3.0 (1.7-4.1) g/dL Albumin/Globulin Ratio 1.5 (1.0-2.8) Lipase 108 (23-300) U/L TSH 0.537 (0.47-4.68) uIU/mL Urine Color Yellow Urine Appearance Clear Urine pH 6.0 (4.5-8.0) Ur Specific [place] 1.020 (1.000-1.035) Urine Protein Negative (Negative) Urine Glucose (UA) Negative (Negative) g/dL Urine Ketones 1+ H (NEGATIVE) Urine Occult Blood Negative (Negative) Urine Nitrate Negative (Negative) Urine Bilirubin Negative (NEGATIVE) Urine Urobilinogen 0.2 (0.2) E.U./dL Ur Leukocyte Esterase Negative (NEGATIVE) Urine RBC None seen (0-5/HPF) Urine WBC 1-5/hpf (0-5/HPF) Ur Squamous Epith Cells None seen (0-5/HPF) Urine Bacteria None seen (None) Hyaline Casts 1-5/lpf (None) Urine Mucus 1+ H (Negative) Ur Culture Indicated? Cult not indicated U Opiates 300ng/mL cut Negative (Negative) Ur Oxycodone Screen Negative (Negative) Urine Methadone Screen Negative (Negative) Ur Barbiturates Screen Negative (Negative) U Tricyclic Antidepress Negative (Negative) Ur Phencyclidine Scrn Negative (Negative) Ur Amphetamines Screen Negative (Negative) U Methamphetamines Scrn Negative (Negative) Ur MDMA Scrn (Ecstasy) Negative (Negative) U Benzodiazepines Scrn Negative (Negative) Urine Cocaine Screen Negative (Negative) U Marijuana (THC) Screen Negative (Negative) Ethyl Alcohol < 10 ( - 10) mg/dL SARS-CoV-2 (PCR) Negative (Negative) Point of Care Testing Glucose POC 79 Point of care testing: Point of Care Testing Glucose POC 79 MDM Narrative Medical decision making narrative: It appears that this is a very similar presentation to 1 here in the emergency department 2 months ago. During that visit he was evaluated and subsequently discharged home. I am unsure if he is taking any of his medications. He states he lives alone. He is no specific complaints. He is oriented to person and place but does not know specifically why he is here. Patient is not suicidal/homicidal. Labs unremarkable. Head CT is unremarkable. There was no signs of any specific infection. He states that he is no family in the area. I do think the patient would benefit from a social work consultation care turned over to day provider to follow-up and disposition. [0700] (Bennie) Patient received in sign out from Dr. Lynn]. I have reviewed the clinical course and performed an independent history and physical exam. Currently resting comfortably. Breakfast ordered. Awaiting METAL SPONGE MAKING MACHINE OPERATOR consult. Meds ordered patient much more lucid after meds and as morning wears on. Aware of person and place. States he knows he is forgetful, but no trouble bathing, eating, or caring for himself Consult: METAL SPONGE MAKING MACHINE OPERATOR - please see their note for details Patient friend to pharmacy picking tech and take home Patient without any evidence of diagnosis requiring a specific or immediate intervention Discharge Plan Departure Patient Disposition: Home Clinical Impression: Delusion Activity Restrictions/Additional Instructions: *You have been diagnosed with [delusions, possible early dementia. As we discussed your history and physical exam are reassuring] *What to do: *Please continue to take your regular medications as directed. [ ] New medication prescriptions sent to your pharmacy: [ ] [ ] New medication written as a paper prescription [ ] No new medications given *Please follow up with your primary care provider on 03/15 at 12pm as scheduled and discussed with you by Social Work. The appointment is at the [address] [place] [address] * also you have a neurology appointment scheduled with Dr. Benavides on 04/29 at [facility] *Return to Emergency Department if you should have any new, worsening or concerning symptoms, such as [fever greater than 101 F, shaking chills, worsening pain, persistent vomiting or other bothersome symptoms] Prescriptions: No Action thyroid (pork) [[place] Thyroid] 15 mg tablet 60 mg PO DAILY rasagiline [Azilect] 1 mg tablet 1 mg PO DAILY pramipexole 0.125 mg tablet 0.125 mg PO BID Qty: 180 1RF meloxicam 15 mg tablet 15 mg PO DAILY PRN (Reason: Low back pain) Qty: 60 2RF bupropion HCl 75 mg tablet See Rx Instructions .ROUTE .COMPLEX Qty: 180 0RF Dose Instruction: TAKE 1 TABLET BY MOUTH DAILY Rx Instructions: TAKE 1 TABLET BY MOUTH DAILY carbidopa-levodopa 25-250 mg tablet 1 tab PO TID Qty: 270 1RF carbidopa-levodopa 10-100 mg tablet 1 tab PO BID Qty: 180 1RF donepezil 5 mg tablet 5 mg PO BEDTIME Qty: 90 1RF famotidine 20 mg tablet 20 mg PO DAILY Qty: 90 1RF entacapone 200 mg tablet 200 mg PO DAILY Qty: 90 1RF pramipexole 0.25 mg tablet See Rx Instructions .ROUTE .COMPLEX Qty: 90 0RF Dose Instruction: TAKE 1 TABLET(0.25 MG) BY MOUTH AT BEDTIME Rx Instructions: TAKE 1 TABLET(0.25 MG) BY MOUTH AT BEDTIME clonazepam 1 mg tablet 1 mg PO BEDTIME PRN (Reason: insomnia) Qty: 30 0RF Rx Instructions: Managed by Neurologist usually, but agreeable to prescribing here for now. Using nightly for sleep. naloxone 4 mg/actuation spray,non-aerosol 1 spray intranasal Q3M PRN Rx Instructions: spray 1 dose into ONE nostril; alternate nostrils w each dose until help arrives mupirocin 2 % ointment 1 applic topical TID Qty: 50 1RF Rx Instructions: apply to laceration on right elbow for 5 days, stop for 3 days and then repeat until wound is healed. Disabled parking permit See Rx Instructions .ROUTE .COMPLEX Qty: 1 0RF Rx Instructions: This patient has a condition which qualifies them for a disable parking permit.; This patient has a condition which qualifies them for a disable parking permit. hydrocodone-acetaminophen 7.5-325 mg tablet 1 tab PO BID PRN (Reason: pain) Qty: 30 0RF Rx Instructions: Supplement with Tylenol up to 3000mg per day Exempt Referrals: Marilynn Benavides MD [Non-Staff] - Marlon Peguero ARNP [Advanced Wire Fence Builder] - Jose Zamudio MD [Primary Care Provider] - Stand Alone Forms: Patient Portal/API
[2023-03-10 21:33] LABS: UR Morphine/Opiate cutoff 300 Negative (Negative); Ur Creatinine Normal (Normal); Ur Specific Gravity Normal (Normal); Urine Amphetamines Negative (Negative); Urine Barbiturates Negative (Negative); Urine Benzodiazepines Negative (Negative); Urine Cocaine Negative (Negative); Urine MDMA Negative (Negative); Urine Methadone Negative (Negative); Urine Methamphetamines Negative (Negative); Urine Oxycodone Negative (Negative); Urine Phencyclidine Negative (Negative); Urine Tetrahydrocannabinol Negative (Negative); Urine Tricyclic Antidepressant Negative (Negative); Urine pH Normal (Normal)
[2023-03-10 21:45] LABS: COVID19 -Nasal RAPID Negative (Negative)
[2023-03-10 21:46] LABS: RBC Urine None Seen (0-5/HPF)
[2023-03-10 21:47] LABS: Bacteria Urine None Seen; Culture Indicated Urine Cult Not Indicated; Hyaline Casts Urine 1-5/LPF; Squamous Epithelial Cell Urine None Seen (0-5/HPF); WBC Urine 1-5/HPF (0-5/HPF)
[2023-03-10 21:48] LABS: Mucus Urine 1+ (Negative)
[2023-03-11 00:05] VITALS: BP 155/74; PULSE 74; RESP 16; TEMP 36.3; O2SAT 97
[2023-03-11 04:00] VITALS: BP 151/72; PULSE 75; RESP 18; TEMP 37; O2SAT 99
[2023-03-11] MEDS: PRAMIPEXOLE 0.25 MG TABLET 0.125 MG PO (08:17)
[2023-03-11] MEDS: ENTACAPONE 200 MG TABLET PO (08:17)
[2023-03-11] MEDS: THYROID, PORK 30 MG TABLET 60 MG PO (08:18)
[2023-03-11] MEDS: CARBIDOPA-LEVODOPA 10/100 TABLET 1 EACH PO (08:18)
--- NOTE | 2023-03-11 09:02 | PC.NURSE ---
History of dementia and a traumatic brain injury.
[2023-03-11 09:06] VITALS: BP 143/70; PULSE 88; RESP 12; TEMP 36.7; O2SAT 96
[2023-03-11 13:06] VITALS: BP 147/75; PULSE 80; RESP 14; O2SAT 99
--- NOTE | 2023-03-11 13:26 | CM.SWNOTE ---
ED STAGE ELECTRICIAN Note Patient presents to ED last evening via EMS due to neighbors concern for patient wandering in the [place] and experiencing hallucinations. This STAGE ELECTRICIAN met with patient for similar concerns in December 2022, since then patient has had two follow ups with PCP. Patient has hx of TBI and Parkinson's disease. STAGE ELECTRICIAN enters room to meet with patient. Patient presents as A/Ox3, patient knows the day of the week, the president and when he is but patient states it is 03. Patient presents with some lapse in communication and pauses, patient states this is normal due to his Parkinson's. Patient endorses he lost his wallet, he was doing yard work and he states EMS found me passed out in the [place]. Patient state he has 80 acres, he was tending to his land. Patient endorses he resides alone in [place] but has a visitor girlfriend 50% of the time. It is reported that she is going on a trip out of town. 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 Patient acknowledges visual hallucinations and states he has been working on identifying what is real and not real, patient endorses he noticed a change in hallucinations with med changes, patient endorses he has been communicating this with PCP. Patient's PCP Dr. Zamudio has left the practice. Patient endorses he sees a neurologist and has an upcoming appt in April. STAGE ELECTRICIAN calls PCP office and schedules ED f/u with Marlon Peguero NP for 03/15/23 at 12pm. STAGE ELECTRICIAN calls [facility] Neurology clinic and confirms that patient has upcoming initial appt with Neurologist Dr. Mendez for 04/29/23 at 9:45AM, STAGE ELECTRICIAN informs providers office of patient's presentation to the ED. Patient endorses preference to d/c to home and states his neighbor Silvia can pick him up. STAGE ELECTRICIAN calls Silvia and she states she can pick him up. STAGE ELECTRICIAN submits APS report due to concern for patient's self neglect and increase in altered mental status changes. APS Online Report Confirmation Number: [id number] STAGE ELECTRICIAN reviews patient with ED provider and patient is deemed appropriate for d/c with outpatient f/u. Plan: patient d/c to home upon medical clearance, patient to f/u with PCP and Neurologist. APS to f/u with patient. Tessa Solis, SPOOLER OPERATOR AUTOMATIC
--- NOTE | 2023-03-11 13:52 | PC.NURSE ---
I called the patients ride and informed her about the patient still having the IV in place. Silvia his ride is a retired OR nurse and I instructed her to come back to the ER to have the IV removed if she did not feel comfortable pulling it.
--- NOTE | 2023-03-11 14:09 | PC.NURSE ---
Silvia called back at 1400 10/and stated that she pulled the IV out and that he was doing well.
== END 2023-03-11 13:06 | disposition home or self-care (01) ==
PROVIDERS: Emergency Medicine; Emergency Provider Emergency Medicine; PCP Pediatrics
DX: F22 Delusional disorders (principal); G20.A1 Parkinson's disease without dyskinesia, without mention of fluctuations; Z20.822 Contact with and (suspected) exposure to COVID-19
CPT/HCPCS: 36415; 70450; 80053; 80305; 80320; 81001; 83690; 83735; 84443; 85025; 87635; 93005; 99284; C9803

== ENCOUNTER → 2023-05-06 09:32 | Outpatient (CLI) | payer MEDICARE, SELFPAY ==
[2020-12-06 23:46] VITALS: BMI 24.3
--- NOTE | 2023-05-06 09:34 | DI.RAD.S_ITS ---
PROCEDURE: XR HAND LT MIN 3V INDICATIONS: fall on left hand TECHNIQUE: 3 views of the hand(s) acquired. COMPARISON: None. FINDINGS: Bones: No visible dislocation. An oblique image is questionable for of small fracture fragment at the 5th distal IP joint along the ventral aspect. No definite fractures at the PIP joint. Carpal bones are normally aligned. No suspicious bony lesions. Soft tissues: Mild soft tissue swelling surrounds the PIP joint. IMPRESSION: 1. Questionable minimally displaced fracture adjacent to the DIP joint, however swelling is present around the PIP joint. 2. No definite dislocation of the 5th digit. Dictated by: Geovanna Guillen M.D. on 05/06/2023 at 11:03 Approved by: Geovanna Guillen M.D. on 05/06/2023 at 11:07
== END ==
PROVIDERS: PCP Family Medicine; Referring Provider Family Medicine; Visit Provider Family Medicine
DX: S69.92XA Unspecified injury of left wrist, hand and finger(s), initial encounter (principal); M79.89 Other specified soft tissue disorders; W19.XXXA Unspecified fall, initial encounter
CPT/HCPCS: 73130

== ENCOUNTER → 2023-07-04 09:08 | Outpatient (CLI) | payer MEDICARE, SELFPAY ==
[2020-12-06 23:46] VITALS: BMI 24.3
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
== END ==
LOC: ECHO 09:09
PROVIDERS: PCP Family Medicine; Referring Provider Family Medicine; Visit Provider Family Medicine
DX: I08.2 Rheumatic disorders of both aortic and tricuspid valves (principal); R01.1 Cardiac murmur, unspecified
CPT/HCPCS: 93306

== ENCOUNTER → 2023-09-28 17:15 | Outpatient (CLI) | payer MEDICARE, SELFPAY ==
[2020-12-06 23:46] VITALS: BMI 24.3
--- NOTE | 2023-09-28 17:17 | DI.RAD.S_ITS ---
PROCEDURE: XR LUMBAR SPINE 2-3V INDICATIONS: Low back pain TECHNIQUE: 3 views of the lumbar spine were acquired. COMPARISON: None. FINDINGS: Bones: 5 [id number] vertebrae are present. Dextrocurvature of the lumbar spine. There is multilevel facet arthropathy, worse at L4-5 and L5-S1. Multilevel disc height loss with degenerative endplate changes and spurring is present. . No vertebral body compression fractures. No suspicious bony lesions. Soft tissues: Overlying bowel gas pattern is normal. No suspicious soft tissue calcifications. Atherosclerotic vascular calcifications. 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 Dictated by: Wilberto Douglass M.D. on 09/29/2023 at 10:22 Approved by: Wilberto Douglass M.D. on 09/29/2023 at 10:25
== END ==
PROVIDERS: PCP Family Medicine; Referring Provider Nurse Practitioner Family; Visit Provider Nurse Practitioner Family
DX: M47.816 Spondylosis without myelopathy or radiculopathy, lumbar region (principal); M47.817 Spondylosis without myelopathy or radiculopathy, lumbosacral region; M54.50 Low back pain, unspecified
CPT/HCPCS: 72100

== ENCOUNTER 2023-12-28 12:40 | Emergency (ER) | payer MEDICARE, SELFPAY ==
[2020-12-06 23:46] VITALS: BMI 24.3
[2023-12-28 12:45] VITALS: BP 110/61; PULSE 83; RESP 18; TEMP 36.4; O2SAT 97; BMI 24.3
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
[2023-12-28 14:46] VITALS: PULSE 65; O2SAT 92
[2023-12-28 15:00] VITALS: BP 171/79; PULSE 61; O2SAT 100
[2023-12-28 15:30] VITALS: BP 162/75; PULSE 71; O2SAT 97
[2023-12-28 16:00] VITALS: BP 178/86; PULSE 75; O2SAT 100
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
[2023-12-28] MEDS: TET,DIPH,PERTUSS(ACELL),VAC/PF 0.5 ML SYRINGE IM (16:47)
[2023-12-28] MEDS: HYDROCODONE/ACET 5/325 TABLET 1 TAB PO (16:47)
--- NOTE | 2023-12-28 17:37 | PC.NURSE ---
patient was discharged by another nurse
== END 2023-12-28 17:37 | disposition home or self-care (01) ==
PROVIDERS: Emergency Provider Emergency Medicine; PCP Family Medicine
DX: S20.229A Contusion of unspecified back wall of thorax, initial encounter (principal); S80.12XA Contusion of left lower leg, initial encounter; S80.11XA Contusion of right lower leg, initial encounter; V03.90XA Pedestrian on foot injured in collision with car, pick-up truck or van, unspecified whether traffic or nontraffic accident, initial encounter; Z23 Encounter for immunization
CPT/HCPCS: 71250; 73590; 74176; 90471; 99284; 90715

== ENCOUNTER → 2024-01-09 18:33 | Outpatient (CLI) | payer MEDICARE, SELFPAY ==
[2020-12-06 23:46] VITALS: BMI 24.3
--- NOTE | 2024-01-09 18:34 | DI.MRI.S_ITS ---
PROCEDURE: MR LUMBAR SPINE WO CON INDICATIONS: low back pain TECHNIQUE: Noncontrast sagittal T1 spin echo and T2 fast echo, sagittal STIR, and T2 fast spin echo through the lumbar spine. In cases with scoliosis, additional coronal T2 fast spin echo may be performed. COMPARISON: None. FINDINGS: Image quality: Excellent. Alignment and Curvature: Dextroconvex scoliosis of the lumbar spine. Grade 1 retrolisthesis of L1 on L2 and L2 on L3. Grade 1 anterolisthesis of L4 on L5. Bone Marrow: Bone marrow signal is heterogeneous in signal. No acute vertebral body compression fractures. Spinal Cord: Conus medullaris terminates at the <T12-L1 level. Visualized cord demonstrates normal signal and size. Paraspinous Soft Tissues: 1.1 cm left renal cyst. Intervertebral discs: Multilevel disc desiccation and height loss. T12-L1: No spinal canal stenosis. Mild narrowing of both neural foramen. Bilateral facet arthropathy and ligamentum flavum hypertrophy. L1-L2: There is moderate to severe spinal canal stenosis secondary to ligamentum flavum hypertrophy and large left foraminal disc protrusion. There is severe left foraminal stenosis. Moderate right foraminal stenosis. Bilateral facet arthropathy. L2-L3: There is severe spinal canal stenosis secondary to ligamentum flavum hypertrophy, bilateral facet arthropathy and small central disc protrusion. Moderate to severe bilateral foraminal stenosis. L3-L4: Mild to moderate spinal canal stenosis secondary to dorsal disc bulge and ligamentum flavum hypertrophy. The [id number] bilateral foraminal stenosis. Bilateral facet arthropathy. L4-L5: Severe spinal canal stenosis secondary to dorsal disc bulge and ligamentum flavum hypertrophy. Severe bilateral foraminal stenosis. Bilateral facet arthropathy. L5-S1: No spinal canal stenosis. Psag-aa-[id number] bilateral foraminal stenosis.. Bilateral facet arthropathy and ligamentum flavum hypertrophy. IMPRESSION: 1. There is multilevel degenerative disc disease throughout the lumbar spine as described above. The worst levels are at L2-L3 and L4-L5. At the L2-L3 level, there is severe spinal canal stenosis and moderate to severe bilateral foraminal stenosis. At the L4-L5 level, there is severe spinal canal stenosis and severe bilateral foraminal stenosis. 2. There is dextroconvex scoliosis of the lumbar spine. Grade 1 retrolisthesis of L1 on L2 and L2 on L3. Grade 1 anterolisthesis of L4 on L5. 3. The bone marrow signal is heterogeneous. Correlation with a CBC is suggested to exclude a bone marrow packing process. Dictated by: Arpit Murray M.D. on 01/10/2024 at 13:20 Approved by: Arpit Murray M.D. on 01/10/2024 at 13:43
== END ==
LOC: MRI 18:33
PROVIDERS: PCP Family Medicine; Referring Provider Family Medicine; Visit Provider Family Medicine
DX: M51.16 Intervertebral disc disorders with radiculopathy, lumbar region (principal); M48.07 Spinal stenosis, lumbosacral region; M48.061 Spinal stenosis, lumbar region without neurogenic claudication; M47.27 Other spondylosis with radiculopathy, lumbosacral region; M47.26 Other spondylosis with radiculopathy, lumbar region; M41.9 Scoliosis, unspecified; M43.16 Spondylolisthesis, lumbar region; M54.50 Low back pain, unspecified
CPT/HCPCS: 72148

== ENCOUNTER 2024-03-22 07:21 | Outpatient (CLI) | payer MEDICARE, SELFPAY ==
[2020-12-06 23:46] VITALS: BMI 24.3
[2024-03-22] VITALS (10 sets, daily range): BP systolic 120–192; BP diastolic 70–100; PULSE 65–80; RESP 10–18; TEMP 36.2; O2SAT 94–100
--- NOTE | 2024-03-22 08:00 | DI.RAD.S_ITS ---
PROCEDURE: PAIN L INTERLAMINAR/CAUDAL INJ INDICATIONS: L4/5 TL TRACEY COMPARISON: None. FINDINGS: Fluoroscopic spot filming was performed to verify placement of spinal needles at the right-sided L4-5 interlaminar notch level, as labeled on the films. Appropriate location(s) of the needle tip(s) was confirmed by injection of iodinated contrast. IMPRESSION: L4-5 right paramedian interlaminar notch needle tip localization. Dictated by: Judson Early M.D. on 03/22/2024 at 10:08 Approved by: Judson Early M.D. on 03/22/2024 at 10:09
[2024-03-22] MEDS: MIDAZOLAM 2 MG/2 ML VIAL IV (08:01)
[2024-03-22] MEDS: DEXAMETHASONE 10 MG/ML VIAL INJ (08:12)
[2024-03-22] MEDS: BUPIVACAINE 0.25% (PF) VIAL 2 ML INJ (08:12)
[2024-03-22] MEDS: BETAMETHASONE 30 MG/5 ML MDV 6 MG INJ (08:13)
[2024-03-22] MEDS: iopamidoL 15 ML VIAL 3 ML INJ (08:14)
--- NOTE | 2024-03-22 08:27 | P.PCN_ITS ---
Date/Time/Diagnoses Date of procedure: 03/22/24 Time of procedure: 08:27 Pre-procedure diagnosis: 1. HNP WITH RADICULAR FEATURES, 2. MULTILEVEL CENTRAL STENOSIS, Post-procedure diagnosis: same Procedure Notes Procedure: 1. FLUOROSCOPICALLY GUIDED CONTRAST CONTROLLED INTERLAMINAR EPIDURAL STEROID INJECTION -L4/5 Indications: Carlos is referred by Dr. Kilgore for treatment of Bilateral Foraminal Stenosis R>L LE symptoms. Physician: Geraldo Interiano Total Fluoroscopy time (seconds): 7 Total sedation minutes: 18 Complications: none Procedure in detail & Post-procedure care: FINDINGS Multilevel Central Spinal Stenosis with Nerve Root Compression DESCRIPTION OF PROCEDURE Fluoroscopically guided, contrast-controlled L4/5 translaminar epidural steroid injection. Following review of allergy and review of potential side effects and complications, including, but not necessarily limited to, infection, allergic reaction, local tissue breakdown, temporary as well as permanent nerve injury, paralysis, stroke and possible , the patient indicated that the patient understood and agreed to proceed. An informed consent document was signed by the patient, witnessed by a nurse, and placed in the patient's chart. Additionally, other treatment options including modalities, medications, and physical therapy were reviewed with the patient. After review of previous anaesthesic history and IV conscious sedation the patient was deemed safe to proceed with today?s procedure with IV conscious sedation as ASA class II designation. Safety time-out was performed to confirm patient ID, procedure to be performed and site of procedure. IV sedation was accomplished with a combination of 2mg of Versed was administered by the RN after DO order, titrated to patient comfort during the course of the procedure while the patient remained responsive to all verbal commands In the prone position, following sterile prep and drape of the lumbar region, the L4/5 translaminar space was identified fluoroscopically. The skin was anesthetized via a 25-gauge, 1.5inch needle with 1% lidocaine solution. At this point, a 22-gauge short bevel spinal needle was atraumatically introduced and a dvanced under fluoroscopic guidance into the region of the L4/5 translaminar space. Depth was confirmed on lateral view. Radiological data, including multiple fluoroscopic views of the lumbar spine, reveal a spinal needle at the L4/5 translaminar space. Lateral views then show placement of the needle in the epidural space. Subsequent views show contrast material flowing superiorly and inferiorly in the epidural space. No vascular or intrathecal uptake is observed. At this point, using loss of resistance technique with saline and air, the epidural space was entered. This was confirmed following negative aspiration with injection of approximately 1.5cc of Isovue 200, showing excellent epidural flow without vascular or intrathecal uptake. At this point, 1cc of 1% lidocaine solution combined with 3cc or 10mg of dexamethasone and 12mg betamethasone was injected without incident. The patient tolerated the procedure well without signs or symptoms of complications prior to transfer to the recovery area continued monitoring without incident. The patient was then transferred to the recovery area where they were observed for an appropriate period of time after the injection. The patient reported a VAS score of 9 prior to the procedure and a post- procedure VAS of 1. POST OP INSTRUCTIONS The patient was provided a Pain Log to continue to record their response to the target-specific procedure prior to follow-up visit with their referring physician. Additionally, specific post-injection care instructions and a contact number to our office were provided if concerns arise regarding possible complications associated with the procedure are suspected.
== END 2024-03-22 08:46 | disposition home or self-care (01) ==
PROVIDERS: PCP Family Medicine; Referring Provider Physical Medicine & Rehabilitation; Visit Provider Physical Medicine & Rehabilitation
DX: M51.16 Intervertebral disc disorders with radiculopathy, lumbar region (principal); M48.061 Spinal stenosis, lumbar region without neurogenic claudication
CPT/HCPCS: 62323; 99152; J0702; J1100; J2250; J3490

== ENCOUNTER 2024-06-07 08:13 | Outpatient (CLI) | payer MEDICARE, SELFPAY ==
[2020-12-06 23:46] VITALS: BMI 24.3
[2024-06-07] VITALS (8 sets, daily range): BP systolic 103–152; BP diastolic 57–70; PULSE 56–68; RESP 12–20; TEMP 36.4; O2SAT 97–100
--- NOTE | 2024-06-07 08:56 | DI.RAD.S_ITS ---
PROCEDURE: PAIN L INTERLAMINAR/CAUDAL INJ INDICATIONS: LUMBAR STENOSIS COMPARISON: [facility], XA, PAIN L INTERLAMINAR/CAUDAL INJ, 03/22/2024, 8:11. FINDINGS/IMPRESSION: Fluoroscopic spot filming was performed to verify placement of spinal needles at the L4-L5 level(s), as labeled on the films. Appropriate location(s) of the needle tip(s) was confirmed by injection of iodinated contrast. Dictated by: Salomon Garcia M.D. on 06/08/2024 at 10:30 Approved by: Salomon Garcia M.D. on 06/08/2024 at 10:30
[2024-06-07] MEDS: MIDAZOLAM 2 MG/2 ML VIAL IV (09:12)
[2024-06-07] MEDS: BUPIVACAINE 0.25% (PF) VIAL 2 ML INJ (09:17)
[2024-06-07] MEDS: iopamidoL 15 ML VIAL 3 ML INJ (09:17)
[2024-06-07] MEDS: BETAMETHASONE 30 MG/5 ML MDV 12 MG INJ (09:18)
[2024-06-07] MEDS: DEXAMETHASONE 10 MG/ML VIAL INJ (09:18)
--- NOTE | 2024-06-07 09:28 | P.PCN_ITS ---
Date/Time/Diagnoses Date of procedure: 06/07/24 Time of procedure: 09:29 Pre-procedure diagnosis: 1. HNP WITH RADICULAR FEATURES, 2. MULTILEVEL CENTRAL STENOSIS, Post-procedure diagnosis: same Procedure Notes Procedure: 1. FLUOROSCOPICALLY GUIDED CONTRAST CONTROLLED INTERLAMINAR EPIDURAL STEROID INJECTION -L4/5 Indications: Don is referred by Dr. Kilgore for treatment of Bilateral Foraminal Stenosis R>L LE symptoms. Physician: Geraldo Interiano Total Fluoroscopy time (seconds): 6 Total sedation minutes: 11 Complications: none Procedure in detail & Post-procedure care: FINDINGS Multilevel Central Spinal Stenosis with Nerve Root Compression DESCRIPTION OF PROCEDURE Fluoroscopically guided, contrast-controlled L4/5 translaminar epidural steroid injection. Following review of allergy and review of potential side effects and complications, including, but not necessarily limited to, infection, allergic reaction, local tissue breakdown, temporary as well as permanent nerve injury, paralysis, stroke and possible , the patient indicated that the patient understood and agreed to proceed. An informed consent document was signed by the patient, witnessed by a nurse, and placed in the patient's chart. Additionally, other treatment options including modalities, medications, and physical therapy were reviewed with the patient. After review of previous anaesthesic history and IV conscious sedation the patient was deemed safe to proceed with today?s procedure with IV conscious sedation as ASA class II designation. Safety time-out was performed to confirm patient ID, procedure to be performed and site of procedure. IV sedation was accomplished with a combination of 2mg of Versed was administered by the RN after DO order, titrated to patient comfort during the course of the procedure while the patient remained responsive to all verbal commands In the prone position, following sterile prep and drape of the lumbar region, the L4/5 translaminar space was identified fluoroscopically. The skin was anesthetized via a 25-gauge, 1.5inch needle with 1% lidocaine solution. At this point, a 22-gauge short bevel spinal needle was atraumatically introduced and advanced under fluoroscopic guidance into the region of the L4/5 translaminar space. Depth was confirmed on lateral view. Radiological data, including multiple fluoroscopic views of the lumbar spine, reveal a spinal needle at the L4/5 translaminar space. Lateral views then show placement of the needle in the epidural space. Subsequent views show contrast material flowing superiorly and inferiorly in the epidural space. No vascular or intrathecal uptake is observed. At this point, using loss of resistance technique with saline and air, the epidural space was entered. This was confirmed following negative aspiration with injection of approximately 1.5cc of Isovue 200, showing excellent epidural flow without vascular or intrathecal uptake. At this point, 1cc of 1% lidocaine solution combined with 2cc or 10mg of dexamethasone and 6mg betamethasone was injected without incident. The patient tolerated the procedure well without signs or symptoms of complications prior to transfer to the recovery area continued monitoring without incident. The patient was then transferred to the recovery area where they were observed for an appropriate period of time after the injection. The patient reported a VAS score of 6 prior to the procedure and a post- procedure VAS of 0. POST OP INSTRUCTIONS The patient was provided a Pain Log to continue to record their response to the target-specific procedure prior to follow-up visit with their referring physician. Additionally, specific post-injection care instructions and a contact number to our office were provided if concerns arise regarding possible complications associated with the procedure are suspected.
== END 2024-06-07 09:47 | disposition home or self-care (01) ==
PROVIDERS: PCP Family Medicine; Referring Provider Physical Medicine & Rehabilitation; Visit Provider Physical Medicine & Rehabilitation
DX: M51.16 Intervertebral disc disorders with radiculopathy, lumbar region (principal); M48.061 Spinal stenosis, lumbar region without neurogenic claudication
CPT/HCPCS: 62323; 99152; J0702; J1100; J2250; J3490

== ENCOUNTER 2024-07-03 12:39 | Emergency (ER) | payer MEDICARE, SELFPAY ==
[2020-12-06 23:46] VITALS: BMI 24.3
[2024-07-03] VITALS (13 sets, daily range): BP systolic 113–172; BP diastolic 56–90; PULSE 84–96; RESP 11–25; TEMP 36.6; O2SAT 77–100; BMI 26.1
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
--- NOTE | 2024-07-03 13:07 | DI.CT.S_ITS ---
PROCEDURE: CT CERVICAL SPINE WO CON INDICATIONS: Trauma TECHNIQUE: Noncontrast 3 mm thick sections acquired from the skull base to the T4 level. Sagittal and coronal reformats were then constructed. For radiation dose reduction, the following was used: automated exposure control, adjustment of mA and/or kV according to patient size. COMPARISON: [facility], CT, CT CERVICAL SPINE WO CON, 02/04/2022, 15:21. FINDINGS: Image quality: Motion degraded. Bones: No fractures or dislocations. Multilevel degenerative changes of the cervical spine. Visualized superior ribs are intact. Soft tissues: Prevertebral soft tissues are normal in thickness. No paravertebral hematomas. No apical pneumothoraces. IMPRESSION: Motion degraded exam. Within these limitations, no displaced fracture or traumatic subluxation. Dictated by: Wilberto Douglass M.D. on 07/03/2024 at 13:44 Approved by: Wilberto Douglass M.D. on 07/03/2024 at 13:46
[2024-07-03 13:09] LABS: Allen Test for ABG Passed? Positive; Base Excess ABG -3.4 mmol/L (-2-3); Blood Gas Collection Site Left Radial; HCO3 ABG 21 mmol/L (23-27); Oxygen Saturation ABG 100 % (95-100); PCO2 ABG 34.6 mmHg (35-45); PO2 ABG 265 mmHg (80-100); TCO2 ABG 20 mmol/L (23-27); pH ABG 7.39 (7.35-7.45)
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
[2024-07-03 13:15] LABS: Add Manual Diff / Slide Review NO; Basophils Absolute Auto 0 /uL (0-100); Basophils Percent Auto 0.3 % (0-2); Eosinophils Absolute Auto 0 /uL (0-450); Eosinophils Percent Auto 0.1 % (2-4); Hematocrit 37.6 % (41-53); Hemoglobin 12.9 g/dL (13.5-17.5); Lymphocytes Absolute Auto 500 /uL (1100-4500); Lymphocytes Percent Auto 3.6 % (25-40); Mean Corpuscular HGB Conc 34.2 % (30-36); Mean Corpuscular Hemoglobin 31.5 PG (26-34); Mean Corpuscular Volume 92.1 fL (80-100); Monocytes Absolute Auto 600 /uL (0-900); Monocytes Percent Auto 4.5 % (3-14); Neutrophils Absolute Auto 12600 /uL (1500-7000); Neutrophils Percent Auto 91.5 % (50-75); Platelet Count 348 X10^3/uL (150-400); Red Blood Cell Count 4.09 X10^6/uL (4.5-5.9); Red Cell Distribution Width 16.1 % (11.6-14.8); White Blood Cell Count 13.7 X10^3/uL (4.5-11.0)
[2024-07-03 13:26] LABS: Lactate (Lactic Acid) 5.2 mmol/L (0.7-2.1)
--- NOTE | 2024-07-03 13:26 | EKG_ITS ---
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
[2024-07-03 13:27] LABS: Alanine Aminotransferase 153 IU/L (<50); Albumin 4.6 g/dL (3.5-5.0); Albumin Globulin Ratio 1.5 (1.0-2.8); Alkaline Phosphatase 90 U/L (38-126); Aspartate Aminotransferase 256 IU/L (17-59); BUN Creatinine Ratio 18.8 (6-22); Bilirubin Total 0.9 mg/dL (0.2-1.3); Blood Urea Nitrogen 39 mg/dL (9-20); Calcium 9.6 mg/dL (8.4-10.2); Carbon Dioxide 20 mmol/L (22-32); Chloride 105 mmol/L (98-107); Estimated Glomerular Filt Rate 32 mL/min (>60); Glucose 114 mg/dL (80-110); HEMOLYSIS < 15 (0-50); Sodium 140 mmol/L (137-145); Total Protein 7.6 g/dL (6.3-8.2)
[2024-07-03 13:30] LABS: Potassium 5.6 mmol/L (3.4-5.1)
[2024-07-03 13:38] LABS: Troponin I 0.014 ng/mL (0.01-0.034)
[2024-07-03 13:44] LABS: Creatine Kinase 4466 U/L (55-170)
[2024-07-03] MEDS: SODIUM CHLORIDE 0.9% 1,000 ML 1000 ML IV (14:27)
[2024-07-03 14:46] LABS: Reflexed Lactate in 2 Hours Y
[2024-07-03 15:12] LABS: Ethanol (ETOH) < 10 mg/dL
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
--- NOTE | 2024-07-03 15:37 | PC.NURSE ---
[facility] [place] started at [address] [facility]. Accepted by at 1450, Dr. Childs advised to go [facility] to ED [facility] . [facility], ETA [id number].
== END 2024-07-03 15:47 | disposition short-term general hospital (02) ==
PROVIDERS: Emergency Provider Emergency Medicine; PCP Family Medicine
DX: T59.811A Toxic effect of smoke, accidental (unintentional), initial encounter (principal); T79.6XXA Traumatic ischemia of muscle, initial encounter; G20.A1 Parkinson's disease without dyskinesia, without mention of fluctuations; E03.9 Hypothyroidism, unspecified; Z87.442 Personal history of urinary calculi; Z86.73 Personal history of transient ischemic attack (TIA), and cerebral infarction without residual deficits
CPT/HCPCS: 36415; 36600; 70450; 71260; 72125; 74177; 80053; 80320; 82375; 82550; 82805; 83605; 84484; 85025; 93005; 96360; 99284; 99285; Q9967

== ENCOUNTER → 2024-11-22 14:53 | Outpatient (CLI) | payer MEDICARE, SELFPAY ==
[2020-12-06 23:46] VITALS: BMI 24.3
--- NOTE | 2024-11-22 14:57 | DI.RAD.S_ITS ---
PROCEDURE: XR CHEST 2V INDICATIONS: New onset dyspnea on exertion, pedal edema TECHNIQUE: 2 views of the chest were acquired. COMPARISON: None. FINDINGS: Heart, mediastinum and pulmonary vascular: Heart is normal in size and configuration. Large hiatal hernia noted. Mediastinum is otherwise normal Pulmonary vascular is normal. Lungs: Moderate patchy infiltrate is present in the right lung base minor airspace disease left base Pleural spaces: Normal-no effusions or pneumothorax. IMPRESSION: Moderate patchy infiltrate right middle lower lobe. Mild airspace disease left lower lobe atelectasis versus infiltrate. Patient is at risk for aspiration Large hiatal hernia Dictated by: Bneoit Jones M.D. on 11/23/2024 at 12:31 Approved by: Benoit Jones M.D. on 11/23/2024 at 12:32
[2024-11-22 16:33] LABS: Add Manual Diff / Slide Review NO; Basophils Absolute Auto 0 /uL (0-100); Basophils Percent Auto 0.6 % (0-2); Eosinophils Absolute Auto 200 /uL (0-450); Eosinophils Percent Auto 2.5 % (2-4); Hematocrit 35.1 % (41-53); Hemoglobin 11.7 g/dL (13.5-17.5); Lymphocytes Absolute Auto 1000 /uL (1100-4500); Lymphocytes Percent Auto 15.5 % (25-40); Mean Corpuscular HGB Conc 33.3 % (30-36); Monocytes Absolute Auto 500 /uL (0-900); Monocytes Percent Auto 6.8 % (3-14); Neutrophils Absolute Auto 5000 /uL (1500-7000); Neutrophils Percent Auto 74.6 % (50-75); Platelet Count 340 X10^3/uL (150-400); Red Blood Cell Count 4.03 X10^6/uL (4.5-5.9); Red Cell Distribution Width 15.6 % (11.6-14.8); White Blood Cell Count 6.7 X10^3/uL (4.5-11.0)
[2024-11-22 16:58] LABS: HEMOLYSIS < 15 (0-50); Iron 42 ug/dL (49-181)
[2024-11-22 17:00] LABS: Alanine Aminotransferase 5 IU/L (<50); Albumin 4.4 g/dL (3.5-5.0); Albumin Globulin Ratio 1.4 (1.0-2.8); Alkaline Phosphatase 72 U/L (38-126); Aspartate Aminotransferase 26 IU/L (17-59); BUN Creatinine Ratio 18.7 (6-22); Bilirubin Total 0.4 mg/dL (0.2-1.3); Blood Urea Nitrogen 17 mg/dL (9-20); Calcium 9.6 mg/dL (8.4-10.2); Carbon Dioxide 27 mmol/L (22-32); Chloride 103 mmol/L (98-107); Estimated Glomerular Filt Rate > 60 mL/min (>60); Globulin 3.2 g/dL (1.7-4.1); Glucose 102 mg/dL (70-99); HEMOLYSIS < 15 (0-50); Potassium 4.2 mmol/L (3.4-5.1); Sodium 140 mmol/L (137-145); Total Protein 7.6 g/dL (6.3-8.2)
[2024-11-22 17:08] LABS: NT-proBNP (BNP-Adult 18+) 407 pg/mL (<450)
[2024-11-22 17:09] LABS: Percent Iron Saturation 11 % (20-50); Total Iron Binding Capacity 397 ug/dL (261-462); Transferrin 315 mg/dL (206-381)
[2024-11-22 17:34] LABS: Ferritin 23 ng/mL (18-464)
[2024-11-22 21:35] LABS: Hep C Virus Ab w/Reflex Quant NEGATIVE s/c (NEGATIVE)
== END ==
PROVIDERS: PCP Family Medicine; Referring Provider Family Medicine; Visit Provider Family Medicine
DX: R06.09 Other forms of dyspnea (principal); R60.0 Localized edema; D64.9 Anemia, unspecified; K44.9 Diaphragmatic hernia without obstruction or gangrene; R91.8 Other nonspecific abnormal finding of lung field
CPT/HCPCS: 36415; 71046; 80053; 82728; 83540; 83550; 83880; 85025; 86803

== ENCOUNTER 2025-01-08 13:45 | Outpatient (CLI) | payer MEDICARE, SELFPAY ==
[2020-12-06 23:46] VITALS: BMI 24.3
[2025-01-08] VITALS (9 sets, daily range): BP systolic 102–142; BP diastolic 57–87; PULSE 62–71; RESP 16–66; TEMP 36.4–36.6; O2SAT 94–99
[2025-01-08] MEDS: MIDAZOLAM 2 MG/2 ML VIAL 1 MG IV (15:05)
[2025-01-08] MEDS: BETAMETHASONE 30 MG/5 ML MDV 12 MG INJ (15:11)
--- NOTE | 2025-01-08 15:21 | P.PCN_ITS ---
Date/Time/Diagnoses Date of procedure: 01/08/25 Time of procedure: 15:21 Pre-procedure diagnosis: 1. HNP WITH RADICULAR FEATURES, 2. MULTILEVEL CENTRAL STENOSIS, Post-procedure diagnosis: same Procedure Notes Procedure: 1. FLUOROSCOPICALLY GUIDED CONTRAST CONTROLLED INTERLAMINAR EPIDURAL STEROID INJECTION -L4/5 Indications: Carlos is referred by Dr. Kilgore for treatment of Bilateral Foraminal Stenosis R>L LE symptoms. Physician: Geraldo Interiano Total Fluoroscopy time (seconds): 7 Total sedation minutes: 10 Complications: none Procedure in detail & Post-procedure care: FINDINGS Multilevel Central Spinal Stenosis with Nerve Root Compression DESCRIPTION OF PROCEDURE Fluoroscopically guided, contrast-controlled L4/5 translaminar epidural steroid injection. Following review of allergy and review of potential side effects and complications, including, but not necessarily limited to, infection, allergic reaction, local tissue breakdown, temporary as well as permanent nerve injury, paralysis, stroke and possible , the patient indicated that the patient understood and agreed to proceed. An informed consent document was signed by the patient, witnessed by a nurse, and placed in the patient's chart. Additionally, other treatment options including modalities, medications, and physical therapy were reviewed with the patient. After review of previous anaesthesic history and IV conscious sedation the patient was deemed safe to proceed with today?s procedure with IV conscious sedation as ASA class II designation. Safety time-out was performed to confirm patient ID, procedure to be performed and site of procedure. IV sedation was accomplished with a combination of 1mg of Versed was administered by the RN after DO order, titrated to patient comfort during the course of the procedure while the patient remained responsive to all verbal commands In the prone position, following sterile prep and drape of the lumbar region, the L4/5 translaminar space was identified fluoroscopically. The skin was anesthetized via a 25-gauge, 1.5inch needle with 1% lidocaine solution. At this point, a 22-gauge short bevel spinal needle was atraumatically introduced and a dvanced under fluoroscopic guidance into the region of the L4/5 translaminar space. Depth was confirmed on lateral view. Radiological data, including multiple fluoroscopic views of the lumbar spine, reveal a spinal needle at the L4/5 translaminar space. Lateral views then show placement of the needle in the epidural space. Subsequent views show contrast material flowing superiorly and inferiorly in the epidural space. No vascular or intrathecal uptake is observed. At this point, using loss of resistance technique with saline and air, the epidural space was entered. This was confirmed following negative aspiration with injection of approximately 1.5cc of Isovue 200, showing excellent epidural flow without vascular or intrathecal uptake. At this point, 1cc of 0.25% marcaine solution combined with 3cc or 10mg of dexamethasone and 12mg betamethasone was injected without incident. The patient tolerated the procedure well without signs or symptoms of complications prior to transfer to the recovery area continued monitoring without incident. The patient was then transferred to the recovery area where they were observed for an appropriate period of time after the injection. The patient reported a VAS score of 6 prior to the procedure and a post- procedure VAS of 0. POST OP INSTRUCTIONS The patient was provided a Pain Log to continue to record their response to the target-specific procedure prior to follow-up visit with their referring physician. Additionally, specific post-injection care instructions and a contact number to our office were provided if concerns arise regarding possible complications associated with the procedure are suspected.
== END 2025-01-08 15:41 | disposition home or self-care (01) ==
LOC: RAD 13:46
PROVIDERS: PCP Family Medicine; Referring Provider Physical Medicine & Rehabilitation; Visit Provider Physical Medicine & Rehabilitation
DX: M51.16 Intervertebral disc disorders with radiculopathy, lumbar region (principal); M48.061 Spinal stenosis, lumbar region without neurogenic claudication
CPT/HCPCS: 62323; 99152; J0702; J1100; J2250

== ENCOUNTER → 2025-03-18 12:56 | Outpatient (CLI) | payer MEDICARE, SELFPAY ==
[2025-01-21 13:25] VITALS: BMI 24.3
--- NOTE | 2025-03-18 12:58 | DI.RAD.S_ITS ---
PROCEDURE: XR FOREARM RT 2V INDICATIONS: fall TECHNIQUE: 2 views of the forearm were acquired. COMPARISON: None. FINDINGS: Bones: No fractures or dislocations. No suspicious bony lesions. Soft tissues: No suspicious soft tissue calcifications or masses. Calcific tendinopathy of the triceps insertion. IMPRESSION: No acute bony abnormality. Dictated by: Rohit Engle M.D. on 03/18/2025 at 13:23 Approved by: Rohit Engle M.D. on 03/18/2025 at 13:24
--- NOTE | 2025-03-18 12:58 | DI.RAD.S_ITS ---
PROCEDURE: XR WRIST RT MIN 3V INDICATIONS: fall TECHNIQUE: For views of the wrist were acquired. COMPARISON: None. FINDINGS: Bones: No fractures or dislocations. No suspicious bony lesions. Soft tissues: Dystrophic calcifications with well-defined margins along the volar wrist. IMPRESSION: No acute bony abnormality. Dictated by: Christiano Araiza M.D. on 03/19/2025 at 12:17 Approved by: Christiano Araiza M.D. on 03/19/2025 at 12:18
--- NOTE | 2025-03-18 12:58 | DI.RAD.S_ITS ---
PROCEDURE: XR FOREARM LT 2V INDICATIONS: fall TECHNIQUE: 2 views of the forearm were acquired. COMPARISON: [facility], CR, XR FOREARM RT 2V, 03/18/2025, 12:10. FINDINGS: Bones: No fractures or dislocations. No suspicious bony lesions. 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 Soft tissues: No suspicious soft tissue calcifications or masses. Calcific tendinopathy of the triceps insertion. IMPRESSION: No acute bony abnormality. Dictated by: Rohit Engle M.D. on 03/18/2025 at 13:24 Approved by: Rohit Engle M.D. on 03/18/2025 at 13:24
== END ==
PROVIDERS: PCP Family Medicine; Referring Provider Family Medicine; Visit Provider Physician Assistant
DX: M19.032 Primary osteoarthritis, left wrist (principal); M79.602 Pain in left arm; M25.539 Pain in unspecified wrist
CPT/HCPCS: 73090; 73110

== ENCOUNTER 2025-03-21 14:42 | Outpatient (CLI) | payer MEDICARE, SELFPAY ==
[2025-01-21 13:25] VITALS: BMI 24.3
[2025-03-21] VITALS (10 sets, daily range): BP systolic 148–205; BP diastolic 68–110; PULSE 58–70; RESP 14–18; O2SAT 96–100
[2025-03-21] MEDS: MIDAZOLAM 2 MG/2 ML VIAL 1 MG IV (16:53)
[2025-03-21] MEDS: BETAMETHASONE 30 MG/5 ML MDV 12 MG INJ (16:58)
--- NOTE | 2025-03-21 17:09 | P.PCN_ITS ---
Date/Time/Diagnoses Date of procedure: 03/21/25 Time of procedure: 17:09 Pre-procedure diagnosis: 1. HNP WITH RADICULAR FEATURES, 2. MULTILEVEL CENTRAL STENOSIS, Post-procedure diagnosis: same Procedure Notes Procedure: 1. FLUOROSCOPICALLY GUIDED CONTRAST CONTROLLED INTERLAMINAR EPIDURAL STEROID INJECTION -L4/5 Indications: Carlos is referred by Dr. Kilgore for treatment of Bilateral Foraminal Stenosis R>L LE symptoms. Physician: Geraldo Interiano Total Fluoroscopy time (seconds): 6 Total sedation minutes: 10 Complications: none Procedure in detail & Post-procedure care: FINDINGS Multilevel Central Spinal Stenosis with Nerve Root Compression DESCRIPTION OF PROCEDURE Fluoroscopically guided, contrast-controlled L4/5 translaminar epidural steroid injection. Following review of allergy and review of potential side effects and complications, including, but not necessarily limited to, infection, allergic reaction, local tissue breakdown, temporary as well as permanent nerve injury, paralysis, stroke and possible , the patient indicated that the patient understood and agreed to proceed. An informed consent document was signed by the patient, witnessed by a nurse, and placed in the patient's chart. Additionally, other treatment options including modalities, medications, and physical therapy were reviewed with the patient. After review of previous anaesthesic history and IV conscious sedation the patient was deemed safe to proceed with today?s procedure with IV conscious sedation as ASA class II designation. Safety time-out was performed to confirm patient ID, procedure to be performed and site of procedure. IV sedation was accomplished with a combination of 1mg of Versed was administered by the RN after DO order, titrated to patient comfort during the course of the procedure while the patient remained responsive to all verbal commands In the prone position, following sterile prep and drape of the lumbar region, the L4/5 translaminar space was identified fluoroscopically. The skin was anesthetized via a 25-gauge, 1.5inch needle with 1% lidocaine solution. At this point, a 22-gauge short bevel spinal needle was atraumatically introduced and a dvanced under fluoroscopic guidance into the region of the L4/5 translaminar space. Depth was confirmed on lateral view. Radiological data, including multiple fluoroscopic views of the lumbar spine, reveal a spinal needle at the L4/5 translaminar space. Lateral views then show placement of the needle in the epidural space. Subsequent views show contrast material flowing superiorly and inferiorly in the epidural space. No vascular or intrathecal uptake is observed. At this point, using loss of resistance technique with saline and air, the epidural space was entered. This was confirmed following negative aspiration with injection of approximately 1.5cc of Isovue 200, showing excellent epidural flow without vascular or intrathecal uptake. At this point, 1cc of 0.25% marcaine solution combined with 3cc or 10mg of dexamethasone and 12mg betamethasone was injected without incident. The patient tolerated the procedure well without signs or symptoms of complications prior to transfer to the recovery area continued monitoring without incident. The patient was then transferred to the recovery area where they were observed for an appropriate period of time after the injection. The patient reported a VAS score of 6 prior to the procedure and a post- procedure VAS of 0. POST OP INSTRUCTIONS The patient was provided a Pain Log to continue to record their response to the target-specific procedure prior to follow-up visit with their referring physician. Additionally, specific post-injection care instructions and a contact number to our office were provided if concerns arise regarding possible complications associated with the procedure are suspected.
== END 2025-03-21 17:44 | disposition home or self-care (01) ==
LOC: RAD 14:42
PROVIDERS: PCP Family Medicine; Referring Provider Physical Medicine & Rehabilitation; Visit Provider Physical Medicine & Rehabilitation
DX: M51.16 Intervertebral disc disorders with radiculopathy, lumbar region (principal); M48.061 Spinal stenosis, lumbar region without neurogenic claudication
CPT/HCPCS: 62323; 99152; J0702; J1100; J2250

== ENCOUNTER → 2025-05-01 12:26 | Outpatient (CLI) | payer MEDICARE, SELFPAY ==
[2025-01-21 13:25] VITALS: BMI 24.3
--- NOTE | 2025-05-01 12:28 | DI.RAD.S_ITS ---
PROCEDURE: XR HAND RT MIN 3V INDICATIONS: subcutaneous nodules TECHNIQUE: 3 views of the hand(s) acquired. COMPARISON: [facility], CR, XR HAND LT MIN 3V, 05/06/2023, 9:38. FINDINGS: Bones: No acute fractures or dislocations. Carpal bones are normally aligned. No suspicious bony lesions. Interphalangeal joint space narrowing with osteophytosis. Healing distal ulnar fracture with large bone callus. Soft tissues: No suspicious soft tissue calcifications. IMPRESSION: Healing distal ulnar fracture with large bone callus. Dictated by: Christiano Araiza M.D. on 05/02/2025 at 8:49 Approved by: Christiano Araiza M.D. on 05/02/2025 at 8:50
== END ==
PROVIDERS: PCP Family Medicine; Referring Provider Family Medicine; Visit Provider Family Medicine
DX: S52.601D Unspecified fracture of lower end of right ulna, subsequent encounter for closed fracture with routine healing (principal); R22.31 Localized swelling, mass and lump, right upper limb
CPT/HCPCS: 73130